=== PATIENT | male | born 1935 | race Hispanic/Latino ===

== ENCOUNTER 2017-12-25 07:36 | Inpatient (IN) | payer MEDICARE ==
[2017-12-25 08:16] LABS: BASO % 0.4 % (0.0-2.0); EOS # 0.1 K/uL (0.0-0.7); EOS % 1.4 % (0.0-4.0); HEMOGLOBIN 14.6 g/dL (12.0-18.0); LYMPH % 15.7 % (20.0-40.0); MEAN CELL VOLUME 99.3 fl (80.0-94.0); MEAN CORPUSCULAR HEMOGLOBIN 34.4 pg (27.0-31.0); MEAN CORPUSCULAR HGB CONC 34.7 g/dL (33.0-37.0); MEAN PLATELET VOLUME 7.3 fl (7.2-11.7); MONO # 0.4 K/uL (0.0-0.8); MONO % 7.4 % (0.0-10.0); NEUT # 4.5 K/uL (1.8-7.0); NEUT % 75.1 % (50.0-75.0); NRBC % 0.1 % (0.0-0.0); RBC 4.25 Mil/uL (4.40-5.90); RED CELL DISTRIBUTION WIDTH 14.4 % (11.5-14.5); WHITE BLOOD COUNT 6.1 K/uL (4.8-10.8)
--- NOTE | 2017-12-25 08:16 | ED PDOC ---
HPI: SOB/CHF/COPD Time Seen by Provider: 12/25/17 07:44 Chief Complaint (Nursing): Shortness Of Breath Chief Complaint (Provider): shortness of breath History Per: Patient History/Exam Limitations: no limitations Onset/Duration Of Symptoms: Days (x5), Worse Since (onset) Current Symptoms Are (Timing): Still Present Associated Symptoms: Ankle/Leg Swelling (b/l). denies: Chest Pain, Productive Cough Additional Complaint(s): Navi Welch is an 82 year old male, with a past medical history A-Fib and right pleural effusion, who presents to the emergency department complaining of a worsening shortness of breath onset for x5 days. Patient also reports bilateral leg swelling onset for x1 year. He denies any fever, chills, chest pain, cough, nausea, vomit or diarrhea. No further medical complaints. PMD: None provided. Past Medical History Reviewed: Historical Data, Nursing Documentation, Vital Signs Vital Signs: Last Vital Signs Temp 97.7 F 12/27/17 16:00 Pulse 112 H 12/27/17 16:00 Resp 18 12/27/17 16:00 BP 90/58 L 12/27/17 16:00 Pulse Ox 97 12/27/17 16:00 - Medical History PMH: Atrial Fibrillation, Benign Prostatic Hyperplasia, CHF Other PMH: right pleural effusion, glaucoma - Surgical History Surgical History: No Surg Hx - Family History Family History: States: No Known Family Hx - Social History Current smoker - smoking cessation education provided: No Alcohol: Social Drugs: Denies - Home Medications Home Medications: Ambulatory Orders Medication Instructions Recorded Apixaban [Eliquis] 1 tab PO BID 12/25/17 Finasteride [Proscar] 1 tab PO DAILY 12/25/17 Furosemide [Lasix] 1 tab PO BID 12/25/17 Metoprolol Succinate [Toprol Xl] 1 tab PO DAILY 12/25/17 Timolol [Betimol] 1 drop BOTHEYES DAILY 12/25/17 Tamsulosin [Flomax] 0.8 mg PO PCS #60 cap 12/27/17 - Allergies Allergies/Adverse Reactions: Allergies Allergy/AdvReac Type Severity Reaction Status Date / Time No Known Allergies Allergy Verified 12/25/17 07:49 Review of Systems ROS Statement: Except As Marked, All Systems Reviewed And Found Negative Constitutional: Negative for: Fever, Chills Cardiovascular: Negative for: Chest Pain Respiratory: Positive for: Shortness of Breath. Negative for: Cough Musculoskeletal: Positive for: Other (b/l leg swelling) Physical Exam - Reviewed Nursing Documentation Reviewed: Yes Vital Signs Reviewed: Yes - Physical Exam Appears: Positive for: Non-toxic, No Acute Distress Head Exam: Positive for: ATRAUMATIC, NORMOCEPHALIC Skin: Positive for: Normal Color, Warm, Dry. Negative for: Rash Eye Exam: Positive for: Normal appearance Neck: Positive for: Painless ROM Cardiovascular/Chest: Positive for: Irregularly Irregular Respiratory: Positive for: Decreased Breath Sounds (b/l lower) Gastrointestinal/Abdominal: Positive for: Normal Exam, Soft. Negative for: Tenderness Back: Positive for: Normal Inspection. Negative for: L CVA Tenderness, R CVA Tenderness, Vertebral Tenderness Extremity: Positive for: Normal ROM (upper and lower extremities), Swelling (3+ pitting edema to left lower extremity. 2+ pitting edema to right lower extremity ). Negative for: Deformity Neurologic/Psych: Positive for: Alert, Oriented. Negative for: Motor/Sensory Deficits - Laboratory Results Result Diagrams: 12/27/17 05:00 12/27/17 05:00 - ECG Interpretation Of ECG: A fib @ 93, IRBBB, no ST-T changes. O2 Sat by Pulse Oximetry: 98 (RA) Pulse Ox Interpretation: Normal - Physician Consult Information Time Consulting Physican Contacted: 09:45 Physician Contacted: Ramo Bowman Medical Decision Making Medical Decision Making: Initial Impression: A-fib and pleural effusion Initial Plan: --EKG --PROBNP --CMP --Troponin I --CBC w/ differential --PTT --PT --Chest two views (PA/LAT) [RAD] --Urinalysis --Duplex Lower extrm vein bilat [US] --Reevaluation 08:53 CXR FINDINGS: LUNGS: Biapical pleural thickening again evident. Chronic airspace disease not excluded the right base. PLEURA: Chronic right pleural effusion is reiterated unchanged compared prior chest radiograph 11/25/2017 dating back at least to prior chest radiographs 2017. CARDIOVASCULAR: Stable cardiac silhouette. No pulmonary vascular congestion. OSSEOUS STRUCTURES: S shaped scoliotic deformity reiterated VISUALIZED UPPER ABDOMEN: Normal. OTHER FINDINGS: None. IMPRESSION: Chronic right pleural effusion unchanged with likely underlying chronic airspace disease noted at the right base as well. No left-sided infiltrate or pleural effusion. Biapical pleural thickening reiterated. Accession No. : [id number] Patient Name / ID : MICHAEL Pendleton / [id number] Exam Date : 12/25/2017 09:41:05 ( Approved ) Study Comment : Sex / Age : M / 82Y Creator : Salvatore Lopez MD Dictator : Salvatore Lopez MD Detective Automobile Section : Motorcycle Mechanic Apprentice : Salvatore Lopez MD Approver2 : Report Date : 12/25/2017 12:05:59 My Comment : PROCEDURE: Bilateral lower extremity venous duplex Doppler. HISTORY: BLE swelling COMPARISON: None available. TECHNIQUE: Bilateral common femoral, superficial femoral, popliteal and posterior tibial veins were evaluated. Flow was assessed with color Doppler, compressibility, assessment of phasic flow and augmentation response. FINDINGS: COMMON FEMORAL VEIN: Right CFV: Unremarkable. Left CFV: Unremarkable. SUPERFICIAL FEMORAL VEIN: Right SFV: Unremarkable. Left SFV: Unremarkable. POPLITEAL VEIN: Right Popliteal: Unremarkable. Left Popliteal: Unremarkable. POSTERIOR TIBIAL VEIN: Right PTV: Unremarkable. Left PTV: Unremarkable. OTHER FINDINGS: Bilateral lower extremity edema, by history a chronic finding IMPRESSION: No evidence of deep venous thrombosis. JUSTIN (BROTHER): [phone] Scribe Attestation: Documented by Silvano Matthews, acting as a scribe for Maite Suazo MD Provider Scribe Attestation: All medical record entries made by the Scribe were at my direction and personally dictated by me. I have reviewed the chart and agree that the record accurately reflects my personal performance of the history, physical exam, medical decision making, and the department course for this patient. I have also personally directed, reviewed, and agree with the discharge instructions and disposition. Disposition - Clinical Impression Clinical Impression: Atrial fibrillation, Pleural effusion - Disposition Disposition Time: 09:48 Condition: STABLE - Pt Status Changed To: Hospital Disposition Of: Inpatient - Admit Certification Admit to Inpatient:: After my assessment, the patient will require hospitalization for at least two midnights. This is because of the severity of symptoms shown, intensity of services needed, and/or the medical risk in this patient being treated as an outpatient. - POA Present On Arrival: None
[2017-12-25 08:33] LABS: INR 1.4 (0.9-1.2); PARTIAL THROMBOPLASTIN TIME 36.6 Seconds (25.6-37.1)
[2017-12-25 08:36] LABS: ALB/GLOB RATIO 0.8 (1.0-2.1); ALT/SGPT 29 U/L (21-72); AST/SGOT 28 U/L (17-59); BLOOD UREA NITROGEN 37 mg/dl (9-20); CALCIUM 9.1 mg/dL (8.4-10.2); GFR AFRICAN-AMERICAN > 60; GFR NON-AFRICAN AMERICAN > 60
[2017-12-25 08:46] LABS: B-TYPE NATRIURETIC PEPTIDE 2010 pg/ml (0-900)
--- NOTE | 2017-12-25 08:54 | RAD ---
HISTORY: SOB COMPARISON: Chest radiographs 11/26/2017. TECHNIQUE: Chest PA and lateral FINDINGS: LUNGS: Biapical pleural thickening again evident. Chronic airspace disease not excluded the right base. PLEURA: Chronic right pleural effusion is reiterated unchanged compared prior chest radiograph 11/25/2017 dating back at least to prior chest radiographs 08/28/2017. CARDIOVASCULAR: Stable cardiac silhouette. No pulmonary vascular congestion. OSSEOUS STRUCTURES: S shaped scoliotic deformity reiterated VISUALIZED UPPER ABDOMEN: Normal. OTHER FINDINGS: None. IMPRESSION: Chronic right pleural effusion unchanged with likely underlying chronic airspace disease noted at the right base as well. No left-sided infiltrate or pleural effusion. Biapical pleural thickening reiterated. .
--- NOTE | 2017-12-25 09:24 | CP.PCM.CON ---
History of Present Illness - History of Present Illness History of Present Illness: This 82-year-old male is well known to me from the outpatient setting. He presented to the hospital with increasing shortness of breath because of a right pleural effusion which has not responded to diuretic therapy. He is known to have developed atrial fibrillation a few months back but has been reluctant to have any specific workup done. He has had rate control using metoprolol and diuretic as mentioned above. He has developed bilateral dependent edema which extends from the ankle to mid calf. Nail beds are dusky but there is no central cyanosis. He denies any chest pain. He has no other known cardiac illness. He has been compliant with taking all his medications and maintaining a low sodium diet. He has had low normal blood pressure because of the diuretic therapy. 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 No history of pneumonia, asthma, coronary artery disease, hypertension, diabetes, peptic ulcer disease, chronic renal disease, liver disease or bleeding disorder. Past surgical history: Appendectomy 1946, removal of testicular cyst 1977. Family history: Cerebrovascular accident. Social history: Never smoker. Social alcohol only. Denies illicit drug use. Past Patient History - Past Social History Smoking Status: Never Smoked Chewing Tobacco Use: No Cigar Use: No Alcohol: Social Drugs: Denies Home Situation {Lives}: Alone - CARDIAC Hx Atrial Fibrillation: Yes Hx Congestive Heart Failure: Yes - PULMONARY Other/Comment: pleural effusion. - NEUROLOGICAL Hx Neurological Disorder: No - HEENT Hx Glaucoma: Yes - ENDOCRINE/METABOLIC Hx Endocrine Disorders: No - HEMATOLOGICAL/ONCOLOGICAL Hx Blood Disorders: No Hx Human Immunodeficiency Virus (HIV): No - INTEGUMENTARY Hx Basil Cell: Yes - MUSCULOSKELETAL/RHEUMATOLOGICAL Hx Musculoskeletal Disorders: No - GASTROINTESTINAL Hx Gastrointestinal Disorders: No - GENITOURINARY/GYNECOLOGICAL Hx Prostate Problems: Yes (BPH with LUTS) - PSYCHIATRIC Hx Psychophysiologic Disorder: No Hx Substance Use: No - SURGICAL HISTORY Hx Appendectomy: Yes Other/Comment: removal of testicular cyst. - ANESTHESIA Hx Anesthesia: No Meds Allergies/Adverse Reactions: Allergies Allergy/AdvReac Type Severity Reaction Status Date / Time No Known Allergies Allergy Verified 12/25/17 07:49 Physical Exam - Additional Findings Additional findings: Thin, well developed male in no acute distress. ++ dependant edema of both lower extremities from the feet to mid calf. Dusky nailbeds, no clubbing, no calf tenderness, no palpable venous cords. No palpable abnormal lymphadenopathy. Conjunctivae pink w/o scleral icterus, MANUEL, EOMI. Pharynx pink with moist membranes, no exudate. Nares patent bilaterally w/o bleeding or exudate. Neck is supple and trachea midline. No visible JVD, no carotid bruit. + dullness on percussion lower half of right hemithorax. Breath sounds are absent in the right base posteriorly and laterally. Breath sounds are present in the remaining lung fair w/o wheezes or bronchial breathing. Heart sounds well heard, irreg/irreg rhythm, no abn precordial motion, no murmur. Abdomen is soft and non-tender with normal bowel sounds, no palpable HSM. No CVA tenderness. Results - Vital Signs Recent Vital Signs: Last Vital Signs Temp 97.5 F L 12/25/17 07:41 Pulse 99 H 12/25/17 07:41 Resp 19 12/25/17 08:15 BP 92/59 L 12/25/17 08:05 Pulse Ox 98 12/25/17 08:20 - Labs Result Diagrams: 12/26/17 04:20 12/26/17 04:20 Labs: Laboratory Results - last 24 hr 12/25/17 12/25/17 12/25/17 08:06 08:06 08:06 WBC 6.1 RBC 4.25 L Hgb 14.6 Hct 42.1 MCV 99.3 H MCH 34.4 H MCHC 34.7 RDW 14.4 Plt Count 199 MPV 7.3 Neut % (Auto) 75.1 H Lymph % (Auto) 15.7 L [place] % (Auto) 7.4 Eos % (Auto) 1.4 Baso % (Auto) 0.4 Neut # (Auto) 4.5 Lymph # (Auto) 1.0 [place] # (Auto) 0.4 Eos # (Auto) 0.1 Baso # (Auto) 0.0 PT 16.0 H INR 1.4 H APTT 36.6 Sodium 141 Potassium 3.7 Chloride 96 L Carbon Dioxide 31 H Anion Gap 18 BUN 37 H Creatinine 1.1 Est GFR ( Amer) > 60 Est GFR (Non-Af Amer) > 60 Random Glucose 125 H Calcium 9.1 Total Bilirubin 1.5 H AST 28 ALT 29 Alkaline Phosphatase 179 H Troponin I < 0.0120 NT-Pro-B Natriuret Pep 2010 H Total Protein 8.8 H Albumin 4.0 Globulin 4.8 H Albumin/Globulin Ratio 0.8 L Assessment & Plan (1) Atrial fibrillation Status: Acute Priority: High (2) Pleural effusion due to congestive heart failure Status: Acute Priority: High (3) Acute on chronic systolic congestive heart failure Status: Acute Priority: High - Assessment and Plan (Free Text) Plan: Parenteral diuretics, thoracentesis, cardiology evaluation. Hold anticoags until after thoracentesis. Fluid testing requests entered in to EMR. Continue remainder of home meds. - Date & Time Date: 12/25/17 Time: 09:24
[2017-12-25 10:48] LABS: URINE BACTERIA RARE (<OCC); URINE BILIRUBIN NEGATIVE (NEGATIVE); URINE BLOOD NEGATIVE (NEGATIVE); URINE CLARITY CLEAR (Clear); URINE COLOR YELLOW (YELLOW); URINE GLUCOSE (UA) NEG (Normal); URINE LEUKOCYTE ESTERASE NEG Leu/uL (Negative); URINE PROTEIN NEGATIVE (NEGATIVE); URINE UROBILINOGEN 0.2-1.0 mg/dL (0.2-1.0)
--- NOTE | 2017-12-25 11:51 | CP.PCM.HP ---
History of Present Illness - History of Present Illness History of Present Illness: CC: Shortness of breath This is an 82 year old male with a past medical history of chronic atrial fibrillation anticoagulated on Eliquis, history of chronic right sided pleural effusion, who presented to the ED complaining of worsening shortness of breath and dyspnea on exertion for the last 5 days. The patient also states that he has had worsening leg edema over the last few weeks, although the edema has been present for a year. The patient denies any other symptoms. In the ED, the patient was found to have acute fluid overload, presumably due to possible heart failure. He is saturating well on room air at this point. He has never been diagnosed with heart failure before. CXR shows right sided pleural effusion. The patient is to be admitted for further workup and management of his hypervolemia. Patient denies chest pain, fevers, chills, nausea, vomiting, diarrhea, headache. All of the patient's and/or family's questions were answered at the bedside. Present on Admission - Present on Admission Any Indicators Present on Admission: No History of DVT/PE: No History of Uncontrolled Diabetes: No Review of Systems - Review of Systems Review of Systems: A 12 point review of systems was conducted and found to be negative other than what was mentioned in the HPI Past Patient History - Infectious Disease Hx of Infectious Diseases: None - Past Medical History & Family History Past Medical History?: Yes Past Family History: Reviewed and not pertinent - Past Social History Smoking Status: Current Some Days Smoker Alcohol: Social Drugs: Denies - CARDIAC Hx Atrial Fibrillation: Yes Hx Congestive Heart Failure: Yes - HEENT Hx HEENT Problems: Yes Hx Glaucoma: Yes - GENITOURINARY/GYNECOLOGICAL Hx Genitourinary Disorders: Yes - PSYCHIATRIC Hx Substance Use: No - SURGICAL HISTORY Hx Surgeries: No - ANESTHESIA Hx Anesthesia: No Meds Allergies/Adverse Reactions: Allergies Allergy/AdvReac Type Severity Reaction Status Date / Time No Known Allergies Allergy Verified 12/25/17 07:49 Physical Exam - Additional Findings Additional findings: Physical exam: Constitutional- cooperative, awake, alert Head- NCAT, PERRL Eye- PERRL, EOMI ENT- normal exam, MMM. Neck- normal inspection, supple, no JVD Respiratory- CTAB, no wheezes rales rhonchi Cardiovascular-irregular rate and rhythm, +S1, +S2 no MRG GI/Abdominal- normal bowel sounds, soft, no mass, no hsm Skin- warm, dry Extremities Exam- +3 pitting edema in left leg, + 2 pitting edema right legnormal capillary refill, normal inspection Neurological Exam- alert, awake, oriented Psych- normal mood, normal affect Results - Vital Signs Recent Vital Signs: Last Vital Signs Temp 97.5 F L 12/25/17 07:41 Pulse 99 H 12/25/17 07:41 Resp 19 12/25/17 08:15 BP 92/59 L 12/25/17 08:05 Pulse Ox 98 12/25/17 10:24 - Labs Result Diagrams: 12/25/17 08:06 12/25/17 08:06 Labs: Laboratory Results - last 24 hr 12/25/17 12/25/17 12/25/17 08:06 08:06 08:06 WBC 6.1 RBC 4.25 L Hgb 14.6 Hct 42.1 MCV 99.3 H MCH 34.4 H MCHC 34.7 RDW 14.4 Plt Count 199 MPV 7.3 Neut % (Auto) 75.1 H Lymph % (Auto) 15.7 L [place] % (Auto) 7.4 Eos % (Auto) 1.4 Baso % (Auto) 0.4 Neut # (Auto) 4.5 Lymph # (Auto) 1.0 [place] # (Auto) 0.4 Eos # (Auto) 0.1 Baso # (Auto) 0.0 PT 16.0 H INR 1.4 H APTT 36.6 Sodium 141 Potassium 3.7 Chloride 96 L Carbon Dioxide 31 H Anion Gap 18 BUN 37 H Creatinine 1.1 Est GFR ( Amer) > 60 Est GFR (Non-Af Amer) > 60 Random Glucose 125 H Calcium 9.1 Total Bilirubin 1.5 H AST 28 ALT 29 Alkaline Phosphatase 179 H Troponin I < 0.0120 NT-Pro-B Natriuret Pep 2010 H Total Protein 8.8 H Albumin 4.0 Globulin 4.8 H Albumin/Globulin Ratio 0.8 L Assessment & Plan - Assessment and Plan (Free Text) Plan: ASSESSMENT/PLAN 82 year old male male with a past medical history of chronic atrial fibrillation anticoagulated on Eliquis, history of chronic right sided pleural effusion, BPH, glaucoma, who is being admitted for hypervolemia presumably due to heart failure 1) Hypervolemia - Admit to telemetry - Consultation with Dr. David - Alvin IV - Check echocardiogram for assessment of ejection fraction - Monitor vitals - BNP 2009 - EKG shows atrial fibrillation, normal ventricular rate, right bundle branch block - repeat labs in AM 2) Right sided pleural effusion, chronic - Consult IR for right sided thoracentesis - Check pleural fluid labs, cytology 3) Chronic atrial fibrillation, controlled - Continue Eliquis - Continue Metoprolol 25 mg po daily 4) BPH - Continue Proscar 5) Glaucoma Continue Timolol 1 drop OU daily 6) DVT prophylaxis - Eliquis
--- NOTE | 2017-12-25 12:07 | US ---
PROCEDURE: Bilateral lower extremity venous duplex Doppler. HISTORY: BLE swelling COMPARISON: None available. TECHNIQUE: Bilateral common femoral, superficial femoral, popliteal and posterior tibial veins were evaluated. Flow was assessed with color Doppler, compressibility, assessment of phasic flow and augmentation response. FINDINGS: COMMON FEMORAL VEIN: Right CFV: Unremarkable. Left CFV: Unremarkable. SUPERFICIAL FEMORAL VEIN: Right SFV: Unremarkable. Left SFV: Unremarkable. POPLITEAL VEIN: Right Popliteal: Unremarkable. Left Popliteal: Unremarkable. POSTERIOR TIBIAL VEIN: Right PTV: Unremarkable. Left PTV: Unremarkable. OTHER FINDINGS: Bilateral lower extremity edema, by history a chronic finding IMPRESSION: No evidence of deep venous thrombosis.
--- NOTE | 2017-12-25 12:45 | CP.PCM.CON ---
History of Present Illness - History of Present Illness History of Present Illness: CARDIOLOGY 82 y/o w/m admitted with CHF (I50.23) and chronic Right sided Pleural Effusion Pt came in c/o SOB / MARIE that he claims he always has BUT has gotten worse over the past week. also, has noted pedal edema He as chronic Atrial fibrillation / since his teens PMH: COPD Pleural effusion AF !50.23 BPH BNP: 2009 EKG: Chronic Atrial Fibrillation Review of Systems - Review of Systems Systems not reviewed;Unavailable: Respiratory Distress - Cardiovascular Cardiovascular: Dyspnea on Exertion, Edema, Irregular Heart Rhythm - Respiratory Respiratory: Dyspnea, Dyspnea on Exertion Past Patient History - Infectious Disease Hx of Infectious Diseases: None - Past Medical History & Family History Past Medical History?: Yes Past Family History: Reviewed and not pertinent - Past Social History Smoking Status: Current Some Days Smoker Alcohol: Social Drugs: Denies - CARDIAC Hx Atrial Fibrillation: Yes Hx Congestive Heart Failure: Yes - PULMONARY Other/Comment: pleural effusion. - NEUROLOGICAL Hx Neurological Disorder: No - HEENT Hx HEENT Problems: Yes Hx Glaucoma: Yes - RENAL Hx Chronic Kidney Disease: No - ENDOCRINE/METABOLIC Hx Endocrine Disorders: No - HEMATOLOGICAL/ONCOLOGICAL Hx Blood Disorders: No Hx Human Immunodeficiency Virus (HIV): No - INTEGUMENTARY Hx Basil Cell: Yes - MUSCULOSKELETAL/RHEUMATOLOGICAL Hx Musculoskeletal Disorders: No - GASTROINTESTINAL Hx Gastrointestinal Disorders: No - GENITOURINARY/GYNECOLOGICAL Hx Genitourinary Disorders: Yes - PSYCHIATRIC Hx Substance Use: No - SURGICAL HISTORY Hx Surgeries: No - ANESTHESIA Hx Anesthesia: No Meds Allergies/Adverse Reactions: Allergies Allergy/AdvReac Type Severity Reaction Status Date / Time No Known Allergies Allergy Verified 12/25/17 07:49 - Medications Medications: Current Medications Acetaminophen (Tylenol 325mg Tab) 650 mg PO Q6 PRN PRN Reason: Pain, Mild (1-3) Apixaban (Eliquis) 2.5 mg PO BID SHAI PRN Reason: Protocol Finasteride (Proscar) 5 mg PO DAILY SHAI Furosemide (Lasix) 40 mg IVP DAILY SHAI Metoprolol Succinate (Toprol Xl) 25 mg PO DAILY SHAI Timolol Maleate (Timoptic 0.5% Ophth Soln) 1 drop OU DAILY SHAI Physical Exam - Constitutional Appears: Well - Head Exam Head Exam: ATRAUMATIC - Eye Exam Eye Exam: Normal appearance - ENT Exam ENT Exam: Normal Exam - Neck Exam Neck exam: Positive for: Normal Inspection - Respiratory Exam Respiratory Exam: NORMAL BREATHING PATTERN - Cardiovascular Exam Cardiovascular Exam: Irregular Rhythm Results - Vital Signs Recent Vital Signs: Last Vital Signs Temp 98.0 F 12/25/17 11:08 Pulse 7 L 12/25/17 11:26 Resp 18 12/25/17 11:26 BP 99/64 L 12/25/17 11:08 Pulse Ox 98 12/25/17 11:26 - Labs Result Diagrams: 12/25/17 08:06 12/25/17 08:06 Labs: Laboratory Results - last 24 hr 12/25/17 12/25/17 12/25/17 08:06 08:06 08:06 WBC 6.1 RBC 4.25 L Hgb 14.6 Hct 42.1 MCV 99.3 H MCH 34.4 H MCHC 34.7 RDW 14.4 Plt Count 199 MPV 7.3 Neut % (Auto) 75.1 H Lymph % (Auto) 15.7 L [place] % (Auto) 7.4 Eos % (Auto) 1.4 Baso % (Auto) 0.4 Neut # (Auto) 4.5 Lymph # (Auto) 1.0 [place] # (Auto) 0.4 Eos # (Auto) 0.1 Baso # (Auto) 0.0 PT 16.0 H INR 1.4 H APTT 36.6 Sodium 141 Potassium 3.7 Chloride 96 L Carbon Dioxide 31 H Anion Gap 18 BUN 37 H Creatinine 1.1 Est GFR ( Amer) > 60 Est GFR (Non-Af Amer) > 60 Random Glucose 125 H Calcium 9.1 Total Bilirubin 1.5 H AST 28 ALT 29 Alkaline Phosphatase 179 H Troponin I < 0.0120 NT-Pro-B Natriuret Pep 2010 H Total Protein 8.8 H Albumin 4.0 Globulin 4.8 H Albumin/Globulin Ratio 0.8 L Urine Color Urine Clarity Urine pH Ur Specific [place] Urine Protein Urine Glucose (UA) Urine Ketones Urine Blood Urine Nitrate Urine Bilirubin Urine Urobilinogen Ur Leukocyte Esterase Urine RBC (Auto) Urine Microscopic WBC Urine Bacteria 12/25/17 10:30 WBC RBC Hgb Hct MCV MCH MCHC RDW Plt Count MPV Neut % (Auto) Lymph % (Auto) [place] % (Auto) Eos % (Auto) Baso % (Auto) Neut # (Auto) Lymph # (Auto) [place] # (Auto) Eos # (Auto) Baso # (Auto) PT INR APTT Sodium Potassium Chloride Carbon Dioxide Anion Gap BUN Creatinine Est GFR ( Amer) Est GFR (Non-Af Amer) Random Glucose Calcium Total Bilirubin AST ALT Alkaline Phosphatase Troponin I NT-Pro-B Natriuret Pep Total Protein Albumin Globulin Albumin/Globulin Ratio Urine Color Yellow Urine Clarity Clear Urine pH 7.0 Ur Specific [place] 1.011 Urine Protein Negative Urine Glucose (UA) Neg Urine Ketones Negative Urine Blood Negative Urine Nitrate Negative Urine Bilirubin Negative Urine Urobilinogen 0.2-1.0 Ur Leukocyte Esterase Neg Urine RBC (Auto) 2 Urine Microscopic WBC 1 Urine Bacteria Rare Assessment & Plan (1) Atrial fibrillation Status: Acute Priority: High (2) Pleural effusion due to congestive heart failure Assessment and Plan: Lasix 40mg IV daily Echocardiogram Status: Acute Priority: High (3) Acute on chronic systolic congestive heart failure Status: Acute
[2017-12-25] MEDS: Latanoprost 0.005% Opht SOUTION OU SCH (21:17)
[2017-12-26 05:27] LABS: HEMOGLOBIN 12.9 g/dL (12.0-18.0); MEAN CELL VOLUME 98.4 fl (80.0-94.0); MEAN CORPUSCULAR HEMOGLOBIN 33.5 pg (27.0-31.0); RBC 3.86 Mil/uL (4.40-5.90); RED CELL DISTRIBUTION WIDTH 14.2 % (11.5-14.5); WHITE BLOOD COUNT 5.5 K/uL (4.8-10.8)
[2017-12-26 05:38] LABS: BLOOD UREA NITROGEN 34 mg/dl (9-20); CALCIUM 8.5 mg/dL (8.4-10.2); GFR AFRICAN-AMERICAN > 60; GFR NON-AFRICAN AMERICAN > 60
[2017-12-26] MEDS: Metoprolol Succinate 25 mg XL Tab PO SCH (08:37)
--- NOTE | 2017-12-26 08:49 | CP.PCM.PN ---
Subjective - Date & Time of Evaluation Date of Evaluation: 12/26/17 Time of Evaluation: 08:49 - Subjective Subjective: Seen on morning rounds and telemetry. The patient is seated upright in bed and claims he feels much improved/ comfortable. Weight shows a decrease of approximately 4-5 pounds in 1 day. Blood pressure remains low normal. He continues to be afebrile. Heart rate is well controlled and the rhythm remains irregularly irregular. Dependent edema has decreased dramatically in the lower extremities. No cyanosis. There continues to be dullness in the lower right half of the hemithorax. Sounds remain markedly diminished/absent in the right lower lobe on exam. No audible wheezing. Few scattered dry the medium rales are heard in the left base. Echocardiogram is pending. Thoracentesis is planned for this morning. Eliquis remains on hold for the present time. Objective - Vital Signs/Intake and Output Vital Signs (last 24 hours): Temp Pulse Resp BP Pulse Ox 97.8 F 95 H 18 106/74 95 12/26/17 07:51 12/26/17 08:37 12/26/17 07:51 12/26/17 08:37 12/26/17 07:51 Intake and Output: 12/25/17 12/26/17 23:59 11:59 Intake Total 1380 Output Total 200 Balance 1180 - Medications Medications: Current Medications Acetaminophen (Tylenol 325mg Tab) 650 mg PO Q6 PRN PRN Reason: Pain, Mild (1-3) Apixaban (Eliquis) 2.5 mg PO BID [facility] PRN Reason: Protocol Finasteride (Proscar) 5 mg PO DAILY@1830 [facility] Last Admin: 12/25/17 18:16 Dose: 5 mg Furosemide (Lasix) 40 mg IVP DAILY [facility] Last Admin: 12/26/17 08:35 Dose: 40 mg Latanoprost (Xalatan Opht) 1 drop OU HS [facility] Last Admin: 12/25/17 21:17 Dose: 1 drop Metoprolol Succinate (Toprol Xl) 25 mg PO DAILY [facility] Last Admin: 12/26/17 08:37 Dose: 25 mg Tamsulosin HCl (Flomax) 0.8 mg PO PCS [facility] Last Admin: 12/25/17 19:50 Dose: 0.4 mg Timolol Maleate (Timoptic 0.5% Ophth Soln) 1 drop OU DAILY [facility] Last Admin: 12/26/17 08:35 Dose: 1 drop - Labs Labs: 12/26/17 04:20 12/26/17 04:20 PT 16.0 Seconds (9.8-13.1) H 12/25/17 08:06 INR 1.4 (0.9-1.2) H 12/25/17 08:06 APTT 36.6 Seconds (25.6-37.1) 12/25/17 08:06 Assessment and Plan (1) Atrial fibrillation Status: Acute (2) Pleural effusion due to congestive heart failure Status: Acute (3) Acute on chronic systolic congestive heart failure Status: Acute
--- NOTE | 2017-12-26 10:06 | CP.PCM.PN ---
Subjective - Date & Time of Evaluation Date of Evaluation: 12/26/17 Time of Evaluation: 10:00 - Subjective Subjective: Pt's SOB better today, still with some SOB on exertion pedal edema also better Plan for Thoracentesis today denies CP no abd pain no fever Objective - Vital Signs/Intake and Output Vital Signs (last 24 hours): Temp Pulse Resp BP Pulse Ox 97.8 F 95 H 18 106/74 95 12/26/17 07:51 12/26/17 08:37 12/26/17 07:51 12/26/17 08:37 12/26/17 07:51 - Medications Medications: Current Medications Acetaminophen (Tylenol 325mg Tab) 650 mg PO Q6 PRN PRN Reason: Pain, Mild (1-3) Apixaban (Eliquis) 2.5 mg PO BID [facility] PRN Reason: Protocol Finasteride (Proscar) 5 mg PO DAILY@1830 [facility] Last Admin: 12/25/17 18:16 Dose: 5 mg Furosemide (Lasix) 40 mg IVP DAILY [facility] Last Admin: 12/26/17 08:35 Dose: 40 mg Latanoprost (Xalatan Opht) 1 drop OU HS [facility] Last Admin: 12/25/17 21:17 Dose: 1 drop Metoprolol Succinate (Toprol Xl) 25 mg PO DAILY [facility] Last Admin: 12/26/17 08:37 Dose: 25 mg Tamsulosin HCl (Flomax) 0.8 mg PO PCS [facility] Last Admin: 12/25/17 19:50 Dose: 0.4 mg Timolol Maleate (Timoptic 0.5% Ophth Soln) 1 drop OU DAILY [facility] Last Admin: 12/26/17 08:35 Dose: 1 drop - Labs Labs: 12/26/17 04:20 12/26/17 04:20 PT 16.0 Seconds (9.8-13.1) H 12/25/17 08:06 INR 1.4 (0.9-1.2) H 12/25/17 08:06 APTT 36.6 Seconds (25.6-37.1) 12/25/17 08:06 - Constitutional Appears: No Acute Distress - Head Exam Head Exam: ATRAUMATIC, NORMAL INSPECTION, NORMOCEPHALIC - Eye Exam Eye Exam: EOMI, Normal appearance Pupil Exam: NORMAL ACCOMODATION - ENT Exam ENT Exam: Mucous Membranes Moist, Normal External Ear Exam - Neck Exam Neck Exam: Full ROM. absent: Meningismus - Respiratory Exam Respiratory Exam: Rales. absent: Respiratory Distress - Cardiovascular Exam Cardiovascular Exam: Irregular Rhythm, +S1, +S2 - GI/Abdominal Exam GI & Abdominal Exam: Soft, Normal Bowel Sounds. absent: Tenderness - Extremities Exam Extremities Exam: Normal Capillary Refill, Pedal Edema. absent: Calf Tenderness - Back Exam Back Exam: Full ROM. absent: CVA tenderness (L), CVA tenderness (R) - Neurological Exam Neurological Exam: Alert, Awake, CN II-XII Intact, Oriented x3 Neuro motor strength exam: Left Upper Extremity: 5, Right Upper Extremity: 5, Left Lower Extremity: 5, Right Lower Extremity: 5 - Psychiatric Exam Psychiatric exam: Normal Affect, Normal Mood - Skin Skin Exam: Dry, Normal Color, Warm Assessment and Plan - Assessment and Plan (Free Text) Assessment: 82 year old male with a past medical history of chronic atrial fibrillation anticoagulated on Eliquis, history of CHF, came in because of SOB and leg edema. Found to be in CHF exacerbation with elevated Pro-BNP and moderate Right pleural effusion. 1) Acute on Chronic CHF exacerbation, Systolic and Diastolic Dysfunction, EF 20 -25% - cont IV Lasix and Toprol XL - cardio consulted: Dr David - BNP 2009 - EKG shows atrial fibrillation, normal ventricular rate, right bundle branch block - ECHO shows : severe LV dysfunction, EF 20-25%, Global Hypokinesia, Severe TR 2) Right sided pleural effusion - Consulted IR for right sided thoracentesis - Check pleural fluid labs, cytology 3) Chronic atrial fibrillation, rate controlled - Hold Eliquis a spt is sched for Thoracentesis - Continue Metoprolol 25 mg po daily 4) BPH - Continue Proscar 5) Glaucoma Continue Timolol 1 drop OU daily 6) DVT prophylaxis - Eliquis
--- NOTE | 2017-12-26 10:43 | CARD ---
APPROVED REPORT EXAM: Two-dimensional and M-mode echocardiogram with Doppler and color Doppler. Other Information Quality : ExcellentRhythm : NSR INDICATION Congestive Heart Failure 2D DIMENSIONS IVSd0.82 (0.7-1.1cm)LVDd3.81 (3.9-5.9cm) LVOT Diameter2.01 (1.8-2.4cm)PWd1.21 (0.7-1.1cm) IVSs0.95 (0.8-1.2cm)LVDs3.40 (2.5-4.0cm) FS (%) 10.9 %PWs1.11 (0.8-1.2cm) M-Mode DIMENSIONS Left Atrium (MM)2.68 (2.5-4.0cm)IVSd0.72 (0.7-1.1cm) Aortic Root2.65 (2.2-3.7cm)LVDd4.97 (4.0-5.6cm) Aortic Cusp Exc.1.70 (1.5-2.0cm)PWd0.76 (0.7-1.1cm) IVSs0.69 cmFS (%) 13 % LVDs4.33 (2.0-3.8cm)PWs1.03 cm Mitral Valve E/A ratio0.0 TDI E/Lateral E'0.0E/Medial E'0.0 Tricuspid Valve TR Peak [id number] Peak Gr.24mmHg [id number] LEFT VENTRICLE The left ventricle is normal size. There is normal left ventricular wall thickness. Left ventricle systolic function is severely impaired. The Ejection Fraction is 20-25%. There is global hypokinesis Transmitral Doppler flow pattern is Grade IV-fixed restrictive diastolic dysfunction. No left ventricle thrombus noted on this study. There is no ventricular septal defect visualized. There is no left ventricular aneurysm. There is no mass noted in the left ventricle. RIGHT VENTRICLE The right ventricle is moderately dilated. There is normal right ventricular wall thickness. Systolic function is moderately reduced. ATRIA The left atrium size is normal. The right atrium size is normal. The interatrial septum is intact with no evidence for an atrial septal defect. AORTIC VALVE The aortic valve is normal in structure. No aortic regurgitation is present. There is no aortic valvular stenosis. There is no aortic valvular vegetation. MITRAL VALVE The mitral valve is normal in structure. There is no evidence of mitral valve prolapse. There is no mitral valve stenosis. Mitral regurgitation is mild. TRICUSPID VALVE The tricuspid valve is normal in structure. There is severe tricuspid regurgitation. Right ventricular systolic pressure is estimated at 30-40 mmHg. There is no tricuspid valve prolapse or vegetation. There is no tricuspid valve stenosis. PULMONIC VALVE The pulmonary valve is normal in structure. There is no pulmonic valvular regurgitation. There is no pulmonic valvular stenosis. GREAT VESSELS The aortic root is normal in size. The ascending aorta is normal in size. IVC Doppler evaluation reveals systolic blunting. PERICARDIAL EFFUSION The pericardium appears normal. There is no pleural effusion. <Conclusion> Severely reduced LV systolic function LVEF 20-25% Global Hypokinesis Mild Mitral Regurgitation Severe Tricuspid Regurgitation with normal PA pressures Restrictive Diastolic filling pattern
[2017-12-26] MEDS ORDERED: LIDOCAINE 2% 10ML 20 MG/ML VIAL IJ ONE (13:24)
--- NOTE | 2017-12-26 13:34 | PCM.SURG1 ---
Surgeon's Initial Post Op Note - Surgeon's Notes Surgeon: Adal Gonzalez MD New Account Interviewer: NONE Type of Anesthesia: Local Pre-Operative Diagnosis: Right pleural effusion Operative Findings: US showed a moderate right effusion Post-Operative Diagnosis: Right pleural effusion Operation Performed: US guided right thoracentesis Specimen/Specimens Removed: 900 cc of slight serosanguinous fluid Estimated Blood Loss: EBL {In ML}: 0 Blood Products Given: N/A Drains Used: No Drains Post-Op Condition: Fair Date of Surgery/Procedure: 12/26/17 Time of Surgery/Procedure: 13:30
[2017-12-26 13:58] LABS: ALPHA-1-GLOBULIN (PEP) 0.3 g/dL (0.2-0.3)
[2017-12-26 15:04] LABS: BODY FLUID TYPE PLEURAL/THORACENTESI
--- NOTE | 2017-12-26 15:52 | CP.PCM.PN ---
Subjective - Date & Time of Evaluation Date of Evaluation: 12/26/17 Time of Evaluation: 10:00 - Subjective Subjective: Cardiology Note Pt seen and examined at 10:00 AM Breathing easily Feels about the same as on admission Scheduled for Thoracentesis today Echo: Severe LV dysfunction EF: 20 25% Severe TR Mild MR Objective - Vital Signs/Intake and Output Vital Signs (last 24 hours): Temp Pulse Resp BP Pulse Ox 98.8 F 91 H 19 105/75 98 12/26/17 13:35 12/26/17 13:35 12/26/17 13:35 12/26/17 13:35 12/26/17 13:35 - Medications Medications: Current Medications Acetaminophen (Tylenol 325mg Tab) 650 mg PO Q6 PRN PRN Reason: Pain, Mild (1-3) Apixaban (Eliquis) 2.5 mg PO BID [facility] PRN Reason: Protocol Finasteride (Proscar) 5 mg PO DAILY@1830 [facility] Last Admin: 12/25/17 18:16 Dose: 5 mg Furosemide (Lasix) 40 mg IVP DAILY [facility] Last Admin: 12/26/17 08:35 Dose: 40 mg Latanoprost (Xalatan Opht) 1 drop OU HS [facility] Last Admin: 12/25/17 21:17 Dose: 1 drop Metoprolol Succinate (Toprol Xl) 25 mg PO DAILY [facility] Last Admin: 12/26/17 08:37 Dose: 25 mg Tamsulosin HCl (Flomax) 0.8 mg PO PCS [facility] Last Admin: 12/25/17 19:50 Dose: 0.4 mg Timolol Maleate (Timoptic 0.5% Oph Soln) 1 drop OU DAILY [facility] Last Admin: 12/26/17 08:35 Dose: 1 drop - Labs Labs: 12/26/17 04:20 12/26/17 04:20 PT 16.0 Seconds (9.8-13.1) H 12/25/17 08:06 INR 1.4 (0.9-1.2) H 12/25/17 08:06 APTT 36.6 Seconds (25.6-37.1) 12/25/17 08:06 Assessment and Plan (1) Atrial fibrillation Status: Acute (2) Pleural effusion due to congestive heart failure Status: Acute (3) Acute on chronic systolic congestive heart failure Assessment & Plan: Echo: EF 20 - 25% Status: Acute
[2017-12-26 16:22] LABS: TOTAL PROTEIN,BODY FLUID 3.8 g/dL (NONE ESTABLISHED)
--- NOTE | 2017-12-26 16:32 | RAD ---
PROCEDURE: CHEST RADIOGRAPH, 1 VIEW HISTORY: Status post right thoracentesis COMPARISON: 12/25/2017. FINDINGS: LUNGS: Improved expansion, aeration of the right lung. PLEURA: Substantial decrease in right pleural effusion. Probable small pneumothorax ex vacuo. CARDIOVASCULAR: Normal. OSSEOUS STRUCTURES: No significant abnormalities. VISUALIZED UPPER ABDOMEN: Normal. OTHER FINDINGS: None. IMPRESSION: Status post thoracentesis with re-expansion right lower lobe, small residual right pleural effusion and evidence of pneumothorax ex vacuo.
[2017-12-26 17:28] LABS: BF GROSS APPEARANCE BLOODY (CLEAR); BODY FLUID MONO/MACROPHAGE 4 % (0-0); BODY FLUID TOTAL COUNT 100 (0-0)
[2017-12-26] MEDS: Latanoprost 0.005% Opht SOUTION OU SCH (21:29)
[2017-12-27 06:12] LABS: HEMOGLOBIN 13.7 g/dL (12.0-18.0); MEAN CELL VOLUME 97.7 fl (80.0-94.0); MEAN CORPUSCULAR HEMOGLOBIN 34.1 pg (27.0-31.0); MEAN CORPUSCULAR HGB CONC 34.9 g/dL (33.0-37.0); RBC 4.01 Mil/uL (4.40-5.90); RED CELL DISTRIBUTION WIDTH 14.2 % (11.5-14.5); WHITE BLOOD COUNT 8.4 K/uL (4.8-10.8)
[2017-12-27 06:27] LABS: B-TYPE NATRIURETIC PEPTIDE 1500 pg/ml (0-900)
[2017-12-27 06:38] LABS: BLOOD UREA NITROGEN 33 mg/dl (9-20); CALCIUM 8.7 mg/dL (8.4-10.2); GFR AFRICAN-AMERICAN > 60; GFR NON-AFRICAN AMERICAN > 60
[2017-12-27] MEDS: Metoprolol Succinate 25 mg XL Tab PO SCH (08:36)
--- NOTE | 2017-12-27 09:20 | CP.PCM.PN ---
Subjective - Date & Time of Evaluation Date of Evaluation: 12/27/17 Time of Evaluation: 09:20 - Subjective Subjective: Seated upright in bed. Claims to feel much improved post-thoracentesis. Results of echocardiogram noted. Initial pleural fluid chemistry suggests exudate. Culture and cytology are pending. CT-unofficially; residual effusion noted with air bubbles in the fluid secondary to procedure. Persistent atelectasis, passive, in the right base is still present. Thoracentesis site is clean and dry, dressing removed. There is still dullness in the right base posteriorly wth decreased breath sounds. No rales, rhonchi or rub heard. Dependant edema has resolved (weight down 9 pounds since admission). Will discuss further plans with cardiology. The patient may be reluctant to proceed with any invasive procedures now. May result in discharge and outpatient management/followup. Objective - Vital Signs/Intake and Output Vital Signs (last 24 hours): Temp Pulse Resp BP Pulse Ox 97.8 F 87 20 90/54 L 98 12/27/17 09:00 12/27/17 09:00 12/27/17 09:00 12/27/17 09:00 12/27/17 06:26 - Medications Medications: Current Medications Acetaminophen (Tylenol 325mg Tab) 650 mg PO Q6 PRN PRN Reason: Pain, Mild (1-3) Apixaban (Eliquis) 2.5 mg PO BID [facility] PRN Reason: Protocol Last Admin: 12/27/17 08:32 Dose: 2.5 mg Finasteride (Proscar) 5 mg PO DAILY@1830 [facility] Last Admin: 12/26/17 18:25 Dose: 5 mg Furosemide (Lasix) 40 mg IVP DAILY [facility] Last Admin: 12/27/17 08:36 Dose: Not Given Latanoprost (Xalatan Opht) 1 drop OU HS [facility] Last Admin: 12/26/17 21:29 Dose: 1 drop Metoprolol Succinate (Toprol Xl) 25 mg PO DAILY [facility] Last Admin: 12/27/17 08:36 Dose: Not Given Tamsulosin HCl (Flomax) 0.8 mg PO PCS [facility] Last Admin: 12/26/17 17:24 Dose: 0.8 mg Timolol Maleate (Timoptic 0.5% Ophth Soln) 1 drop OU DAILY [facility] Last Admin: 12/27/17 08:36 Dose: 1 drop - Labs Labs: 12/27/17 05:00 12/27/17 05:00 PT 16.0 Seconds (9.8-13.1) H 12/25/17 08:06 INR 1.4 (0.9-1.2) H 12/25/17 08:06 APTT 36.6 Seconds (25.6-37.1) 12/25/17 08:06 Assessment and Plan (1) Atrial fibrillation Status: Acute (2) Pleural effusion due to congestive heart failure Status: Acute (3) Acute on chronic systolic congestive heart failure Status: Acute
--- NOTE | 2017-12-27 10:04 | RAD ---
PROCEDURE: CHEST RADIOGRAPH, 1 VIEW HISTORY: small Pneumothorax post thoracentesis COMPARISON: Chest radiograph dated 12/26/2017 FINDINGS: LUNGS: Biapical scarring. PLEURA: Small to moderate right residual diffusion with small pneumothorax ex vacuo versus iatrogenic air introduced in the pleural space from recent thoracentesis. CARDIOVASCULAR: Cardiomediastinal silhouette stably enlarged. OSSEOUS STRUCTURES: Unchanged. VISUALIZED UPPER ABDOMEN: Normal. OTHER FINDINGS: None. IMPRESSION: Small to moderate residual right pleural effusion with small pneumothorax ex vacuo versus iatrogenic air introduced into the pleural space from recent thoracentesis.
--- NOTE | 2017-12-27 10:54 | CT ---
PROCEDURE: CT Chest without contrast HISTORY: pleural effusion COMPARISON: Chest radiograph dated 12/26/2017. TECHNIQUE: Contiguous axial images were obtained through the chest without intravenous contrast enhancement. Sagittal and coronal reconstructions were performed. Radiation dose (DLP): 225.7 mGy-cm. This CT exam was performed using one or more of the following dose reduction techniques: Automated exposure control, adjustment of the mA and/or kV according to patient size, and/or use of iterative reconstruction technique. FINDINGS: LUNGS: Biapical scarring. Right middle and lower lobe atelectasis Visualized airway clear. MEDIASTINUM: Unremarkable thoracic aorta. No aneurysm. Normal sized heart. Main pulmonary artery unremarkable. No vascular congestion. No lymphadenopathy. PLEURA: Small to moderate residual right pleural effusion post thoracentesis with scattered foci of air in a random distribution. BONES: Scoliosis. No fracture. No destructive lesion. UPPER ABDOMEN: Grossly unremarkable. OTHER FINDINGS: None. IMPRESSION: Small to moderate residual right pleural effusion post thoracentesis with scattered foci of air in right in distribution. Findings are suggestive of complex pleural effusion with loculations. The pleural air may represent a combination of pneumothorax ex vacuo and/or air introduced iatrogenically during thoracentesis procedure.
--- NOTE | 2017-12-27 12:05 | CARD ---
APPROVED REPORT EKG Measurement Heart [id number] <Conclusion> Atrial fibrillation Incomplete right bundle branch block Abnormal ECG
[2017-12-27 13:36] VITALS: PULSE 112; TEMP 97.7
--- NOTE | 2017-12-27 13:46 | CP.PCM.PN ---
Subjective - Date & Time of Evaluation Date of Evaluation: 12/27/17 Time of Evaluation: 13:44 - Subjective Subjective: Pt is breathing easier today s/p Thoracentesis 900 cc removed Echo noted pt does not want to have any further w/u Suggested that as an out patient he follow up with me or health center associate of his choosing Objective - Vital Signs/Intake and Output Vital Signs (last 24 hours): Temp Pulse Resp BP Pulse Ox 97.7 F 112 H 20 92/61 L 95 12/27/17 13:35 12/27/17 13:35 12/27/17 13:35 12/27/17 13:35 12/27/17 13:35 - Medications Medications: Current Medications Acetaminophen (Tylenol 325mg Tab) 650 mg PO Q6 PRN PRN Reason: Pain, Mild (1-3) Apixaban (Eliquis) 2.5 mg PO BID [facility] PRN Reason: Protocol Last Admin: 12/27/17 08:32 Dose: 2.5 mg Finasteride (Proscar) 5 mg PO DAILY@1830 [facility] Last Admin: 12/26/17 18:25 Dose: 5 mg Furosemide (Lasix) 40 mg IVP DAILY [facility] Last Admin: 12/27/17 08:36 Dose: Not Given Latanoprost (Xalatan Opht) 1 drop OU HS [facility] Last Admin: 12/26/17 21:29 Dose: 1 drop Metoprolol Succinate (Toprol Xl) 25 mg PO DAILY [facility] Last Admin: 12/27/17 08:36 Dose: Not Given Tamsulosin HCl (Flomax) 0.8 mg PO PCS [facility] Last Admin: 12/26/17 17:24 Dose: 0.8 mg Timolol Maleate (Timoptic 0.5% Ophth Soln) 1 drop OU DAILY [facility] Last Admin: 12/27/17 08:36 Dose: 1 drop - Labs Labs: 12/27/17 05:00 12/27/17 05:00 PT 16.0 Seconds (9.8-13.1) H 12/25/17 08:06 INR 1.4 (0.9-1.2) H 12/25/17 08:06 APTT 36.6 Seconds (25.6-37.1) 12/25/17 08:06 Assessment and Plan (1) Atrial fibrillation Status: Acute (2) Pleural effusion due to congestive heart failure Status: Acute (3) Acute on chronic systolic congestive heart failure Status: Acute
--- NOTE | 2017-12-27 14:41 | CP.PCM.DIS ---
Provider - Provider Date of Admission: 12/25/17 09:48 Attending physician: Albin Chen DO Primary care physician: Dr. Briscoe Consults: Pulmonary consult cardiology consult IR consult Time Spent in preparation of Discharge (in minutes): 15 Hospital Course - Lab Results Lab Results: Most Recent Lab Values WBC 8.4 K/uL (4.8-10.8) D 12/27/17 05:00 RBC 4.01 Mil/uL (4.40-5.90) L 12/27/17 05:00 Hgb 13.7 g/dL (12.0-18.0) 12/27/17 05:00 Hct 39.2 % (35.0-51.0) 12/27/17 05:00 MCV 97.7 fl (80.0-94.0) H 12/27/17 05:00 MCH 34.1 pg (27.0-31.0) H 12/27/17 05:00 MCHC 34.9 g/dL (33.0-37.0) 12/27/17 05:00 RDW 14.2 % (11.5-14.5) 12/27/17 05:00 Plt Count 209 K/uL (130-400) 12/27/17 05:00 MPV 7.3 fl (7.2-11.7) 12/25/17 08:06 Neut % (Auto) 75.1 % (50.0-75.0) H 12/25/17 08:06 Lymph % (Auto) 15.7 % (20.0-40.0) L 12/25/17 08:06 [place] % (Auto) 7.4 % (0.0-10.0) 12/25/17 08:06 Eos % (Auto) 1.4 % (0.0-4.0) 12/25/17 08:06 Baso % (Auto) 0.4 % (0.0-2.0) 12/25/17 08:06 Neut # (Auto) 4.5 K/uL (1.8-7.0) 12/25/17 08:06 Lymph # (Auto) 1.0 K/uL (1.0-4.3) 12/25/17 08:06 [place] # (Auto) 0.4 K/uL (0.0-0.8) 12/25/17 08:06 Eos # (Auto) 0.1 K/uL (0.0-0.7) 12/25/17 08:06 Baso # (Auto) 0.0 K/uL (0.0-0.2) 12/25/17 08:06 PT 16.0 Seconds (9.8-13.1) H 12/25/17 08:06 INR 1.4 (0.9-1.2) H 12/25/17 08:06 APTT 36.6 Seconds (25.6-37.1) 12/25/17 08:06 Sodium 136 mmol/l (132-148) 12/27/17 05:00 Potassium 4.2 MMOL/L (3.6-5.0) 12/27/17 05:00 Chloride 99 mmol/L (98-107) 12/27/17 05:00 Carbon Dioxide 27 mmol/L (22-30) 12/27/17 05:00 Anion Gap 14 (10-20) 12/27/17 05:00 BUN 33 mg/dl (9-20) H 12/27/17 05:00 Creatinine 0.8 mg/dl (0.8-1.5) 12/27/17 05:00 Est GFR ( Amer) > 60 12/27/17 05:00 Est GFR (Non-Af Amer) > 60 12/27/17 05:00 Random Glucose 98 mg/dL (75-110) 12/27/17 05:00 Calcium 8.7 mg/dL (8.4-10.2) 12/27/17 05:00 Total Bilirubin 1.5 mg/dl (0.2-1.3) H 12/25/17 08:06 AST 28 U/L (17-59) 12/25/17 08:06 ALT 29 U/L (21-72) 12/25/17 08:06 Alkaline Phosphatase 179 U/L (38-126) H 12/25/17 08:06 Lactate Dehydrogenase 329 U/L (313-618) 12/25/17 12:30 Troponin I < 0.0120 ng/mL (0.00-0.120) 12/25/17 08:06 NT-Pro-B Natriuret Pep 1500 pg/ml (0-900) H 12/27/17 05:00 Total Protein 8.8 G/DL (6.3-8.2) H 12/25/17 08:06 Total Protein (PEP) 7.1 g/dL (6.1-8.1) 12/25/17 12:30 Albumin 4.0 g/dL (3.5-5.0) 12/25/17 08:06 Albumin (PEP) 3.0 g/dL (3.8-4.8) L 12/25/17 12:30 Globulin 4.8 gm/dL (2.2-3.9) H 12/25/17 08:06 Albumin/Globulin Ratio 0.8 (1.0-2.1) L 12/25/17 08:06 [place]-9-Jcwrxazbt 0.3 g/dL (0.2-0.3) 12/25/17 12:30 Qmuhm-7-Zlhjhvuld 0.7 g/dL (0.5-0.9) 12/25/17 12:30 Qpcl-6-Rcbhhocv 0.4 g/dL (0.4-0.6) 12/25/17 12:30 Unpn-2-Sxenvlws 0.5 g/dL (0.2-0.5) 12/25/17 12:30 Gamma Globulins 2.1 g/dL (0.8-1.7) H 12/25/17 12:30 Abnorm Protein Band 1 TEST NOT PERFORMED 12/25/17 12:30 Abnorm Protein Band 2 TEST NOT PERFORMED 12/25/17 12:30 Abnorm Protein Band 3 TEST NOT PERFORMED 12/25/17 12:30 Urine Color Yellow (YELLOW) 12/25/17 10:30 Urine Clarity Clear (Clear) 12/25/17 10:30 Urine pH 7.0 (5.0-8.0) 12/25/17 10:30 Ur Specific [place] 1.011 (1.003-1.030) 12/25/17 10:30 Urine Protein Negative mg/dL (NEGATIVE) 12/25/17 10:30 Urine Glucose (UA) Neg mg/dL (Normal) 12/25/17 10:30 Urine Ketones Negative mg/dL (NEGATIVE) 12/25/17 10:30 Urine Blood Negative (NEGATIVE) 12/25/17 10:30 Urine Nitrate Negative (NEGATIVE) 12/25/17 10:30 Urine Bilirubin Negative (NEGATIVE) 12/25/17 10:30 Urine Urobilinogen 0.2-1.0 mg/dL (0.2-1.0) 12/25/17 10:30 Ur Leukocyte Esterase Neg [place]/uL (Negative) 12/25/17 10:30 Urine RBC (Auto) 2 /hpf (0-3) 12/25/17 10:30 Urine Microscopic WBC 1 /hpf (0-5) 12/25/17 10:30 Urine Bacteria Rare (<OCC) 12/25/17 10:30 Fluid Source Pleural/thoracentesi 12/26/17 13:35 Fluid Appearance Bloody (CLEAR) 12/26/17 13:35 Fluid WBC 1036.0 /mm3 (0.0-300.0) H 12/26/17 13:35 Fluid RBC 57946.0 /mm3 (0.0-0.0) H 12/26/17 13:35 Fluid Tot Cell Count 100 (0-0) H 12/26/17 13:35 Fluid Neutrophils 2.0 % (0-0) H 12/26/17 13:35 Fluid Lymphocytes 94.0 % (0-0) H 12/26/17 13:35 Fld Monocyte/Macrophag 4 % (0-0) H 12/26/17 13:35 Fluid Glucose 77 mg/dL (NONE ESTABLISHED) 12/26/17 13:35 Fluid Total Protein 3.8 g/dL (NONE ESTABLISHED) 12/26/17 13:35 Fluid LDH 464 IU (NONE ESTABLISHED) 12/26/17 13:35 Fluid Comment Sl cloudy 12/26/17 13:35 HAIDER & SPEP Interp See note 12/25/17 12:30 - Hospital Course Hospital Course: 82 year old male with a past medical history of chronic atrial fibrillation anticoagulated on Eliquis, history of CHF, came in because of worsening progressive SOB and leg edema. Found to be in CHF exacerbation with elevated Pro-BNP and moderate Right pleural effusion. Cardiology and pulmonary consulted and he was placed under observation in telemetry. Started on lasix IV . IR consulted and after eliquis was discontinued . 24 hours patient underwent right side thorasenthesis with removal 900 ml transudate fluid Patient clinically improved and his SOB is better . Post thoracenthesis CXr and CT chest showed small residual pneumothorax that remained stable after repeat imaging. Echo showed EF 20-25 5 with global hypokinesis. Further cardiac work up with cardiac cath was recommended to patient by communication specialist but patient refusing for now. Patient clinically improved . Will d/c home Advise to follow up with Dr. Briscoe and communication specialist Dr. David 1. Acute on Chronic CHF exacerbation, Systolic and Diastolic Dysfunction, EF 20 -25% ECHO shows : severe LV dysfunction, EF 20-25%, Global Hypokinesia, Severe TR cont Lasix and Toprol XL cardio consulted: Dr David BNP 2009 Will need work up as outpatient with cardiac cath - 2.Right sided pleural effusion- transudate secondary to CHF s/p thoracenthesis with removal 900 ml 3. Chronic atrial fibrillation, rate controlled Continue Metoprolol 25 mg po daily resume eliquis 4.Post Thoracenthesis small pneumothorax Stable with follow up imaging small right pneumothorax noted post procedure 5. BPH on Proscar 6. Glaucoma Continue Timolol 1 drop OU daily Discharge Exam - Head Exam Head Exam: ATRAUMATIC, NORMAL INSPECTION, NORMOCEPHALIC - Eye Exam Eye Exam: PERRL Pupil Exam: NORMAL ACCOMODATION - ENT Exam ENT Exam: Mucous Membranes Moist, Normal Exam - Neck Exam Neck exam: Full Rom, Normal Inspection - Respiratory Exam Respiratory Exam: Decreased Breath Sounds (right base ), Clear to PA & Lateral, NORMAL BREATHING PATTERN. absent: Rhonchi, Wheezes, Respiratory Distress - Cardiovascular Exam Cardiovascular Exam: Irregular Rhythm, +S1, +S2. absent: JVD - GI/Abdominal Exam GI & Abdominal Exam: Normal Bowel Sounds, Soft. absent: Distended, Guarding, Mass, Rebound, Tenderness - Rectal Exam Rectal Exam: Deferred - Extremities Exam Extremities exam: normal capillary refill, normal inspection, pedal pulses present - Back Exam Back exam: NORMAL INSPECTION - Neurological Exam Neurological exam: Alert, CN II-XII Intact, Oriented x3, Reflexes Normal - Psychiatric Exam Psychiatric exam: Normal Affect - Skin Skin Exam: Dry, Warm Discharge Plan - Discharge Medications Prescriptions: Tamsulosin [Flomax] 0.8 mg PO PCS #60 cap - Follow Up Plan Condition: STABLE Disposition: HOME/ ROUTINE Patient education suggested?: Yes Instructions: Heart Failure, Adult (DC) Referrals: Fady Briscoe MD [Staff Provider] - Brandon David MD [Staff Provider] - Clinical Quality Measures - CQM - Heart Failure Ejection Fraction: Less Than 40 % Beta-Heather Prescribed: Metoprolol Succinate AnticoagulationTherapy for Atrial Fibrillation/Atrialflutter: Yes Will be discharged to: Home Follow Up Date (must be within 7 days from discharge): 12/31/17 Follow Up Time: 09:00
[2017-12-27 16:00] VITALS: BP 90/58; RESP 18
--- NOTE | 2017-12-28 12:14 | CARD ---
APPROVED REPORT EKG Measurement Heart [id number] <Conclusion> Atrial fibrillation Incomplete right bundle branch block Abnormal ECG
[2017-12-30 10:07] VITALS: O2SAT 98
--- NOTE | 2017-12-31 14:19 | PCM.SURG1 ---
Surgeon's Initial Post Op Note - Surgeon's Notes Surgeon: Adal Starks MD Mental Health Therapist: NONE Type of Anesthesia: Local Pre-Operative Diagnosis: Right pleural effusion Operative Findings: US showed moderate right effusion Post-Operative Diagnosis: Right pleura effusion Operation Performed: US guided right thoracentesis Specimen/Specimens Removed: 900 cc of straw colored fluid Estimated Blood Loss: EBL {In ML}: 0 Blood Products Given: N/A Drains Used: No Drains Post-Op Condition: Fair Date of Surgery/Procedure: 12/26/17 Time of Surgery/Procedure: 13:30
--- NOTE | 2017-12-31 14:24 | US ---
PROCEDURE: Date of procedure: 12/26/2017 Procedure: 1. Ultrasound-guided Right thoracentesis, CPT 57178 Medications: 8cc 1% Lidocaine HISTORY: Right pleural effusion, shortness of breath TECHNIQUE: Following informed consent ,the Patients' right chest was marked. Procedure time-out was called, and the patient was placed in the sitting position and limited ultrasound showed a large right effusion. The patient's right back was prepped and draped in the usual sterile fashion. After the skin was anesthetized with lidocaine, a drainage catheter was advanced under ultrasound guidance into the pleural space. Ultrasound-guided thoracentesis was performed. A total of 900 cubic centimeters of straw-colored fluid removed without complication. A Xeroform dressing was applied. IMPRESSION: Ultrasound guided Right thoracentesis. There were no immediate complications.
== END 2017-12-27 17:27 | disposition home or self-care (01) | DRG 292 ==
LOC: H.ER 07:36 → H.ERHOLD 09:48 → H.TEL 10:57
PROVIDERS: ADMIT Internal Medicine; ATTEND Internal Medicine
PROC: 0W993ZZ Drainage of Right Pleural Cavity, Percutaneous Approach (ICD-10-PCS; principal; 2017-12-26)
DX: I50.43 Acute on chronic combined systolic (congestive) and diastolic (congestive) heart failure (principal); J98.11 Atelectasis; N13.8 Other obstructive and reflux uropathy; J91.8 Pleural effusion in other conditions classified elsewhere; J95.811 Postprocedural pneumothorax; I48.2 Chronic atrial fibrillation; H40.9 Unspecified glaucoma; N40.1 Benign prostatic hyperplasia with lower urinary tract symptoms; Z79.01 Long term (current) use of anticoagulants; J44.9 Chronic obstructive pulmonary disease, unspecified; F17.200 Nicotine dependence, unspecified, uncomplicated

== ENCOUNTER 2018-02-23 10:07 | Observation (INO) | payer MEDICARE ==
[2018-02-23 10:19] VITALS: BMI 17.4
--- NOTE | 2018-02-23 10:32 | ED PDOC ---
HPI: General Adult Time Seen by Provider: 02/23/18 10:32 Chief Complaint (Nursing): Trauma Chief Complaint (Provider): head trauma History Per: Patient, Family Additional Complaint(s): 82-year-old male presents to emergency department for evaluation status post head trauma. Patient states he woke up this morning and weight himself which he does every morning. He tripped and fell but is not sure if he felt dizzy or flet faint prior to falling. Patient denies any associated chest pain. He does state he has been feeling more tired than usual secondary to the heat. Upon arrival he denies any acute pain, denies chest pain, shortness of breath or dyspnea on exertion. PMD: Dr. Briscoe Past Medical History Reviewed: Historical Data, Nursing Documentation, Vital Signs Vital Signs: Last Vital Signs Temp 98.5 F 02/23/18 10:17 Pulse 88 02/23/18 10:17 Resp 16 02/23/18 10:17 BP 94/63 L 02/23/18 10:17 Pulse Ox 91 L 02/23/18 12:37 - Medical History PMH: Atrial Fibrillation, Benign Prostatic Hyperplasia, CHF - Surgical History Surgical History: Appendectomy - Family History Family History: States: No Known Family Hx - Living Arrangements Living Arrangements: With Family - Social History Current smoker - smoking cessation education provided: No Alcohol: None Drugs: Denies - Immunization History Hx Tetanus Toxoid Vaccination: No (not sure) - Home Medications Home Medications: Ambulatory Orders Medication Instructions Recorded Apixaban [Eliquis] 1 tab PO BID 12/25/17 Finasteride [Proscar] 1 tab PO DAILY 12/25/17 Furosemide [Lasix] 1 tab PO BID 12/25/17 Metoprolol Succinate [Toprol Xl] 1 tab PO DAILY 12/25/17 Timolol [Betimol] 1 drop BOTHEYES DAILY 12/25/17 Latanoprost 0.005% Opht [Xalatan 1 drop BOTHEYES HS 02/23/18 Opht] Spironolactone [Aldactone] 25 mg PO DAILY 02/23/18 Tamsulosin [Flomax] 0.8 mg PO DAILY 02/23/18 - Allergies Allergies/Adverse Reactions: Allergies Allergy/AdvReac Type Severity Reaction Status Date / Time No Known Allergies Allergy Verified 12/25/17 07:49 Review of Systems ROS Statement: Except As Marked, All Systems Reviewed And Found Negative Constitutional: Positive for: Other (fatigue). Negative for: Fever, Chills, Weakness Cardiovascular: Negative for: Chest Pain, Palpitations Respiratory: Negative for: Cough Gastrointestinal: Negative for: Nausea, Vomiting Neurological: Positive for: Other (head injury with no LOC, ? syncope). Negative for: Dizziness Physical Exam - Reviewed Nursing Documentation Reviewed: Yes Vital Signs Reviewed: Yes - Physical Exam Appears: Positive for: Well Head Exam: Negative for: ATRAUMATIC (1 cm superficial laceration to anterior scalp, no active bleeding, additional 1.5 cm superficial laceration also noted anteriorly, additional 2 cm superficial flap laceration noted anteriorly, no active bleeding noted to only laceration, neurovascular intact) Skin: Positive for: Normal Color. Negative for: Rash Eye Exam: Positive for: Normal appearance, EOMI, PERRL, Other (Abrasion noted to right upper eyelid with mild swelling) Neck: Positive for: Normal. Negative for: Pain On Movement Of Neck Cardiovascular/Chest: Positive for: Regular Rate, Rhythm Respiratory: Positive for: Normal Breath Sounds. Negative for: Wheezing, Respiratory Distress Gastrointestinal/Abdominal: Positive for: Soft. Negative for: Tenderness, Distended, Guarding, Rebound Back: Negative for: L CVA Tenderness, R CVA Tenderness Extremity: Positive for: Normal ROM Neurologic/Psych: Positive for: Alert, Oriented - Laboratory Results Result Diagrams: 02/23/18 10:59 02/23/18 10:59 - ECG Interpretation Of ECG: A-fib 103 bpm, reviewed by PA and ED attending O2 Sat by Pulse Oximetry: 91 - Other Rad CXR X-Ray: Interpreted by Me, Viewed By Me X-Ray Interpretation: no interval changes CT head X-Ray: Read By Radiologist X-Ray Interpretation: see below Medical Decision Making Medical Decision Makin82 y/o male with head injury, ? syncope Plan: EKG CXR CT head Adacel IM CBC CMP BNP Trop IVF at 100 cc/hr CT: IMPRESSION: Right frontal parietal scalp swelling. No calvarial fracture. No acute intracranial pathology or hemorrhage. Age-related changes. PMD is Dr. Briscoe, case was d/w him and he agrees with admission, states to admit to hospitalist service, obs-tele. Dr. Hinds made aware. Procedures - Laceration/Wound Repair Scalp laceration x 2 Wound's Depth, Shape: superficial Wound Explored: no foreign body removed Irrigated w/ Saline (ccs): 10 Betadine Prep?: Yes Wound Repaired With: [place] (total of 4 marjorie placed after application of topical EMLA cream) Layer Closure?: No Wound Complexity: Simple Sterile Dressing Applied?: No Splint Applied?: No Sling Applied?: No Progress: Procedure tolerated well by patient, no complications. Disposition - Clinical Impression Clinical Impression: Syncope, Head injury - Patient ED Disposition Is Patient to be Admitted: No - Disposition Disposition Time: 13:16 Condition: FAIR Forms: Karma ([place]) - Pt Status Changed To: Hospital Disposition Of: Observation Results - Lab Results Lab Results: 02/23/18 02/23/18 02/23/18 10:59 10:59 10:59 WBC 6.6 RBC 4.37 L Hgb 14.8 Hct 42.9 MCV 98.4 H MCH 33.9 H MCHC 34.4 RDW 15.0 H Plt Count 191 MPV 7.4 Neut % (Auto) 80.5 H Lymph % (Auto) 10.4 L [place] % (Auto) 8.0 Eos % (Auto) 0.7 Baso % (Auto) 0.4 Neut # (Auto) 5.3 Lymph # (Auto) 0.7 L [place] # (Auto) 0.5 Eos # (Auto) 0.0 Baso # (Auto) 0.0 PT 16.7 H INR 1.5 H APTT 35.2 Sodium 142 Potassium 4.3 Chloride 96 L Carbon Dioxide 34 H Anion Gap 16 BUN 41 H Creatinine 1.4 Est GFR ( Amer) 59 Est GFR (Non-Af Amer) 49 Random Glucose 110 Calcium 9.6 Total Bilirubin 1.7 H AST 30 ALT 23 Alkaline Phosphatase 165 H Troponin I < 0.0120 NT-Pro-B Natriuret Pep 3000 H Total Protein 8.7 H Albumin 4.1 Globulin 4.6 H Albumin/Globulin Ratio 0.9 L
[2018-02-23] MEDS ORDERED: Tdap Vaccine 0.5 ml Vial (10-64 yrs) IM ONE ×2 (10:39→11:55)
[2018-02-23] MEDS ORDERED: Sodium Chloride 0.9% 1,000 ML IV STA (10:39)
[2018-02-23] MEDS ORDERED: Lidocaine/Prilocaine CREAM 5GM TP STA (10:44)
[2018-02-23 11:10] LABS: BASO % 0.4 % (0.0-2.0); EOS % 0.7 % (0.0-4.0); HEMOGLOBIN 14.8 g/dL (12.0-18.0); LYMPH # 0.7 K/uL (1.0-4.3); LYMPH % 10.4 % (20.0-40.0); MEAN CELL VOLUME 98.4 fl (80.0-94.0); MEAN CORPUSCULAR HEMOGLOBIN 33.9 pg (27.0-31.0); MEAN CORPUSCULAR HGB CONC 34.4 g/dL (33.0-37.0); MEAN PLATELET VOLUME 7.4 fl (7.2-11.7); MONO # 0.5 K/uL (0.0-0.8); NEUT # 5.3 K/uL (1.8-7.0); NEUT % 80.5 % (50.0-75.0); RBC 4.37 Mil/uL (4.40-5.90); WHITE BLOOD COUNT 6.6 K/uL (4.8-10.8)
[2018-02-23 11:31] LABS: INR 1.5 (0.9-1.2); PARTIAL THROMBOPLASTIN TIME 35.2 Seconds (25.6-37.1); PROTHROMBIN TIME 16.7 Seconds (9.8-13.1)
--- NOTE | 2018-02-23 11:44 | CT ---
PROCEDURE: CT HEAD WITHOUT CONTRAST. HISTORY: trauma COMPARISON: CT head dated 01/20/2011. TECHNIQUE: Axial computed tomography images were obtained through the head/brain without intravenous contrast. Radiation dose: Total exam DLP = 901.7 mGy-cm. This CT exam was performed using one or more of the following dose reduction techniques: Automated exposure control, adjustment of the mA and/or kV according to patient size, and/or use of iterative reconstruction technique. FINDINGS: HEMORRHAGE: No intracranial hemorrhage. BRAIN: No mass effect or edema. Mild atrophy. Chronic microvascular ischemic changes. Bilateral basal ganglia lacunar infarctions. VENTRICLES: Unremarkable. No hydrocephalus. CALVARIUM: Unremarkable. PARANASAL SINUSES: Unremarkable as visualized. No significant inflammatory changes. MASTOID AIR CELLS: Unremarkable as visualized. No inflammatory changes. OTHER FINDINGS: Right frontoparietal scalp swelling. IMPRESSION: Right frontal parietal scalp swelling. No calvarial fracture. No acute intracranial pathology or hemorrhage. Age-related changes.
[2018-02-23] MEDS ORDERED: Lidocaine/Prilocaine CREAM 5GM TP ONE (11:55)
[2018-02-23 12:04] LABS: ALB/GLOB RATIO 0.9 (1.0-2.1); ALBUMIN 4.1 g/dL (3.5-5.0); ALT/SGPT 23 U/L (21-72); AST/SGOT 30 U/L (17-59); BLOOD UREA NITROGEN 41 mg/dl (9-20); CALCIUM 9.6 mg/dL (8.4-10.2); GFR AFRICAN-AMERICAN 59; GFR NON-AFRICAN AMERICAN 49
[2018-02-23 12:07] LABS: B-TYPE NATRIURETIC PEPTIDE 3000 pg/ml (0-900)
--- NOTE | 2018-02-23 12:46 | RAD ---
HISTORY: clearance COMPARISON: No prior. FINDINGS: LUNGS: Right basilar atelectasis with consolidation not excluded. PLEURA: Slightly right pleural effusion. No pneumothorax apparent. CARDIOVASCULAR: Atherosclerotic aortic calcifications. Cardiomediastinal silhouette stably enlarged. OSSEOUS STRUCTURES: Unchanged. VISUALIZED UPPER ABDOMEN: Normal. OTHER FINDINGS: None. IMPRESSION: Moderate right pleural effusion with underlying mass and/or consolidation not excluded. Follow-up to resolution.
--- NOTE | 2018-02-23 13:21 | CP.PCM.CON ---
History of Present Illness - History of Present Illness History of Present Illness: Patient was seen in the emergency department on presentation. He had been in his usual state of health at home but had an apparent syncopal episode in the morning with apparent superficial head trauma. Patient has no recollection of the event. CT scan of the head has been done. He denies any preceding chest pain or nausea, but became lightheaded and lost consciousness. His respiratory status has remained stable, and his chronic CHF has been managed with diuretic therapy. His chronic a fib has been managed with beta-irving for rate control. He has been found to have rEF systolic/diastolic heart failure, but has declined further workup for same. He has a chronic right pleural effusion as a result. A prior hospital admission and thoracentesis revealed an exudative effusion with negative cytology. 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 No history of pneumonia, asthma, coronary artery disease, hypertension, diabetes, peptic ulcer disease, chronic renal disease, liver disease or bleeding disorder. Past surgical history: Appendectomy 1946, removal of testicular cyst 1977. Family history: Cerebrovascular accident. Social history: Never smoker. Social alcohol only. Denies illicit drug use. Past Patient History - Infectious Disease Hx of Infectious Diseases: None - Past Medical History & Family History Past Medical History?: Yes - Past Social History Smoking Status: Never Smoked Chewing Tobacco Use: No Cigar Use: No Alcohol: None Drugs: Denies Home Situation {Lives}: Alone - CARDIAC Hx Atrial Fibrillation: Yes Hx Congestive Heart Failure: Yes Hx Peripheral Edema: Yes - PULMONARY Other/Comment: exudative pleural effusion. - NEUROLOGICAL Hx Neurological Disorder: No - HEENT Hx Glaucoma: Yes - RENAL Hx Chronic Kidney Disease: No - ENDOCRINE/METABOLIC Hx Endocrine Disorders: No - HEMATOLOGICAL/ONCOLOGICAL Hx Cancer: Yes (skin cancer) Hx Human Immunodeficiency Virus (HIV): No - INTEGUMENTARY Hx Basil Cell: Yes - MUSCULOSKELETAL/RHEUMATOLOGICAL Hx Musculoskeletal Disorders: Yes Hx Falls: Yes - GASTROINTESTINAL Hx Gastrointestinal Disorders: No - GENITOURINARY/GYNECOLOGICAL Hx Genitourinary Disorders: Yes Hx Prostate Problems: Yes - PSYCHIATRIC Hx Psychophysiologic Disorder: No Hx Substance Use: No - SURGICAL HISTORY Hx Appendectomy: Yes - ANESTHESIA Hx Anesthesia: No Meds Allergies/Adverse Reactions: Allergies Allergy/AdvReac Type Severity Reaction Status Date / Time No Known Allergies Allergy Verified 12/25/17 07:49 - Medications Medications: Current Medications Sodium Chloride (Sodium Chloride 0.9%) 1,000 mls @ 100 mls/hr IV .Q10H STA Stop: 02/23/18 20:38 Last Admin: 02/23/18 11:56 Dose: 100 mls/hr Physical Exam - Additional Findings Additional findings: Thin, well developed male in no acute distress. + dependant edema of both lower extremities. Dusky nailbeds, no clubbing, no calf tenderness, no palpable venous cords. No palpable abnormal lymphadenopathy. Conjunctivae pink w/o scleral icterus, MANUEL, EOMI. Pharynx pink with moist membranes, no exudate. Nares patent bilaterally w/o bleeding or exudate. Neck is supple and trachea midline. No visible JVD, no carotid bruit. + dullness on percussion at base of right hemithorax. Breath sounds are absent in the right base posteriorly and laterally. Breath sounds are present in the remaining lung fair w/o wheezes or bronchial breathing. Heart sounds well heard, irreg/irreg rhythm, no abn precordial motion, no murmur. Abdomen is soft and non-tender with normal bowel sounds, no palpable HSM. No CVA tenderness. Lacerations of the scalp with staple closure right parieto/occipital area. Results - Vital Signs Recent Vital Signs: Last Vital Signs Temp 98.5 F 02/23/18 10:17 Pulse 88 02/23/18 10:17 Resp 16 02/23/18 10:17 BP 94/63 L 02/23/18 10:17 Pulse Ox 91 L 02/23/18 13:17 - Labs Result Diagrams: 02/24/18 07:01 02/24/18 07:01 Labs: Laboratory Results - last 24 hr 02/23/18 02/23/18 02/23/18 10:59 10:59 10:59 WBC 6.6 RBC 4.37 L Hgb 14.8 Hct 42.9 MCV 98.4 H MCH 33.9 H MCHC 34.4 RDW 15.0 H Plt Count 191 MPV 7.4 Neut % (Auto) 80.5 H Lymph % (Auto) 10.4 L [place] % (Auto) 8.0 Eos % (Auto) 0.7 Baso % (Auto) 0.4 Neut # (Auto) 5.3 Lymph # (Auto) 0.7 L [place] # (Auto) 0.5 Eos # (Auto) 0.0 Baso # (Auto) 0.0 PT 16.7 H INR 1.5 H APTT 35.2 Sodium 142 Potassium 4.3 Chloride 96 L Carbon Dioxide 34 H Anion Gap 16 BUN 41 H Creatinine 1.4 Est GFR ( Amer) 59 Est GFR (Non-Af Amer) 49 Random Glucose 110 Calcium 9.6 Total Bilirubin 1.7 H AST 30 ALT 23 Alkaline Phosphatase 165 H Troponin I < 0.0120 NT-Pro-B Natriuret Pep 3000 H Total Protein 8.7 H Albumin 4.1 Globulin 4.6 H Albumin/Globulin Ratio 0.9 L Assessment & Plan (1) Syncope Status: Acute Priority: High (2) Chronic systolic congestive heart failure Status: Chronic Priority: High (3) Atrial fibrillation Status: Chronic Priority: High (4) Pleural effusion due to congestive heart failure Status: Chronic Priority: High - Date & Time Date: 02/23/18 Time: 13:21
--- NOTE | 2018-02-23 13:32 | CP.PCM.HP ---
History of Present Illness - History of Present Illness History of Present Illness: 82 yo male with history of Chronic AFib, Chronic Right Sided Pleural Effusion and CHF felt dizzy and fell on the floor earlier today. He was not sure if he passed out. Patient was alone and did not have any witness. He denied chest pain , SOB, fever or chills. He had ECHO on last admission in Dec, 2017 and was advised to have further cardiac work up but refused. EF was 20-25 with global hypokinesis. Present on Admission - Present on Admission Any Indicators Present on Admission: No History of DVT/PE: No History of Uncontrolled Diabetes: No Urinary Catheter: No Decubitus Ulcer Present: No Review of Systems - Review of Systems All systems: reviewed and no additional remarkable complaints except (aside from those mentioned above, 12 point system review were negative by me) Past Patient History - Infectious Disease Hx of Infectious Diseases: None - Tetanus Immunizations Tetanus Immunization: Unknown - Past Medical History & Family History Past Medical History?: Yes - Past Social History Smoking Status: Never Smoked Chewing Tobacco Use: No Cigar Use: No Alcohol: None Drugs: Denies - CARDIAC Hx Atrial Fibrillation: Yes Hx Congestive Heart Failure: Yes Hx Hypotension: Yes Hx Peripheral Edema: Yes - PULMONARY Hx Respiratory Disorders: Yes Other/Comment: pleural effusion. - NEUROLOGICAL Hx Neurological Disorder: No - HEENT Hx HEENT Problems: Yes Hx Glaucoma: Yes - RENAL Hx Chronic Kidney Disease: No - ENDOCRINE/METABOLIC Hx Endocrine Disorders: No - HEMATOLOGICAL/ONCOLOGICAL Hx Human Immunodeficiency Virus (HIV): No - INTEGUMENTARY Hx Dermatological Problems: Yes Hx Basil Cell: Yes - MUSCULOSKELETAL/RHEUMATOLOGICAL Hx Musculoskeletal Disorders: Yes Hx Falls: Yes - GASTROINTESTINAL Hx Gastrointestinal Disorders: No - GENITOURINARY/GYNECOLOGICAL Hx Genitourinary Disorders: Yes - PSYCHIATRIC Hx Psychophysiologic Disorder: No Hx Substance Use: No - SURGICAL HISTORY Hx Appendectomy: Yes - ANESTHESIA Hx Anesthesia: Yes Hx Anesthesia Reactions: No Meds Allergies/Adverse Reactions: Allergies Allergy/AdvReac Type Severity Reaction Status Date / Time No Known Allergies Allergy Verified 12/25/17 07:49 Physical Exam - Constitutional Appears: Cachectic - Head Exam Head Exam: absent: ATRAUMATIC (scalp laceration on right parietal region closed with marjorie, right kylie-orbital swelling, multiple facial abrasions) - Eye Exam Eye Exam: PERRL. absent: Scleral icterus - ENT Exam ENT Exam: Mucous Membranes Moist - Neck Exam Neck exam: Negative for: Meningismus - Respiratory Exam Respiratory Exam: absent: Rales, Rhonchi, Wheezes, Respiratory Distress - Cardiovascular Exam Cardiovascular Exam: Irregular Rhythm - GI/Abdominal Exam GI & Abdominal Exam: Soft. absent: Tenderness - Rectal Exam Rectal Exam: Deferred - Extremities Exam Extremities exam: Negative for: calf tenderness, pedal edema - Back Exam Back exam: NORMAL INSPECTION - Neurological Exam Neurological exam: Alert, Oriented x3 - Psychiatric Exam Psychiatric exam: Normal Affect - Skin Skin Exam: Dry, Intact Results - Vital Signs Recent Vital Signs: Last Vital Signs Temp 98.5 F 02/23/18 10:17 Pulse 88 02/23/18 10:17 Resp 16 02/23/18 10:17 BP 94/63 L 02/23/18 10:17 Pulse Ox 91 L 02/23/18 13:17 - Labs Result Diagrams: 02/23/18 10:59 02/23/18 10:59 Labs: Laboratory Results - last 24 hr 02/23/18 02/23/18 02/23/18 10:59 10:59 10:59 WBC 6.6 RBC 4.37 L Hgb 14.8 Hct 42.9 MCV 98.4 H MCH 33.9 H MCHC 34.4 RDW 15.0 H Plt Count 191 MPV 7.4 Neut % (Auto) 80.5 H Lymph % (Auto) 10.4 L [place] % (Auto) 8.0 Eos % (Auto) 0.7 Baso % (Auto) 0.4 Neut # (Auto) 5.3 Lymph # (Auto) 0.7 L [place] # (Auto) 0.5 Eos # (Auto) 0.0 Baso # (Auto) 0.0 PT 16.7 H INR 1.5 H APTT 35.2 Sodium 142 Potassium 4.3 Chloride 96 L Carbon Dioxide 34 H Anion Gap 16 BUN 41 H Creatinine 1.4 Est GFR ( Amer) 59 Est GFR (Non-Af Amer) 49 Random Glucose 110 Calcium 9.6 Total Bilirubin 1.7 H AST 30 ALT 23 Alkaline Phosphatase 165 H Troponin I < 0.0120 NT-Pro-B Natriuret Pep 3000 H Total Protein 8.7 H Albumin 4.1 Globulin 4.6 H Albumin/Globulin Ratio 0.9 L Assessment & Plan - Assessment and Plan (Free Text) Assessment: 82 yo male with history of Chronic AFib, Chronic Right Sided Pleural Effusion and CHF felt dizzy and fell on the floor earlier today. He was not sure if he passed out. Patient was alone and did not have any witness. He denied chest pain , SOB, fever or chills. He had ECHO on last admission in Dec, 2017 and was advised to have further cardiac work up but refused. EF was 20-25 with global hypokinesis. 1. Syncope CT scan of head: + only for scalp swelling on right fronto-parietal serial Troponin and EKG cardiology consult with Dr Robledo 2. Chronic AFib rate controlled continue Metoprolol and Eliquis 3. CHF secondary to systolic dysfunction continue Lasix, Aldactone and Metoprolol 4. BPH on Finasteride and Flomax which both caused postural hypotension advised patient to be aware of postural hypotension and be careful when suddenly rising up
[2018-02-23] MEDS ORDERED: Latanoprost 0.005% Opht SOUTION OU SCH (22:00)
[2018-02-24] MEDS: Pantoprazole 40 mg EC Tab PO SCH ×2 (00:20→09:37)
[2018-02-24] MEDS ORDERED: Sodium Chloride 0.9% 1,000 ML IV SCH (00:30)
--- NOTE | 2018-02-24 07:30 | CP.PCM.CON ---
History of Present Illness - History of Present Illness History of Present Illness: 82 yo male with history of Chronic AFib, Chronic Right Sided Pleural Effusion and CHF Bent over and fell on the floor. He denies dizziness,chest pain, SOB, fever or chills. Seems to feel that he did lose consciousness sustained a laceration to his head Perry well prior to the event Admits that during the heat wave this past week he did not take in much fluids and was not eating as he normally would (no appetite) EKG: Atrial fibrillation Troponin: neg BNP: 3000 ECHO 12/2017 Global Hypokinesia EF: 20-25% MR Past Patient History - Infectious Disease Hx of Infectious Diseases: None - Tetanus Immunizations Tetanus Immunization: Unknown - Past Medical History & Family History Past Medical History?: Yes - Past Social History Smoking Status: Never Smoked - CARDIAC Hx Cardiac Disorders: Yes (AFIB) Hx Atrial Fibrillation: Yes Hx Congestive Heart Failure: Yes - PULMONARY Hx Respiratory Disorders: Yes - NEUROLOGICAL Hx Neurological Disorder: No - HEENT Hx HEENT Problems: Yes Hx Glaucoma: Yes - RENAL Hx Chronic Kidney Disease: No - ENDOCRINE/METABOLIC Hx Endocrine Disorders: No - HEMATOLOGICAL/ONCOLOGICAL Hx AIDS: No Hx Human Immunodeficiency Virus (HIV): No - INTEGUMENTARY Hx Dermatological Problems: No - MUSCULOSKELETAL/RHEUMATOLOGICAL Hx Musculoskeletal Disorders: No Hx Falls: Yes - GASTROINTESTINAL Hx Gastrointestinal Disorders: No - GENITOURINARY/GYNECOLOGICAL Hx Genitourinary Disorders: Yes Hx Prostate Problems: Yes - PSYCHIATRIC Hx Psychophysiologic Disorder: No Hx Substance Use: No - SURGICAL HISTORY Hx Appendectomy: Yes - ANESTHESIA Hx Anesthesia: Yes Hx Anesthesia Reactions: No Meds Allergies/Adverse Reactions: Allergies Allergy/AdvReac Type Severity Reaction Status Date / Time No Known Allergies Allergy Verified 12/25/17 07:49 - Medications Medications: Current Medications Apixaban (Eliquis) 2.5 mg PO BID SHAI PRN Reason: Protocol Docusate Sodium (Colace) 100 mg PO BID PRN PRN Reason: Constipation Finasteride (Proscar) 5 mg PO DAILY SHAI Furosemide (Lasix) 40 mg PO BID SHAI Sodium Chloride (Sodium Chloride 0.9%) 1,000 mls @ 75 mls/hr IV .[id number] SHAI Stop: 02/24/18 13:49 Last Admin: 02/24/18 00:42 Dose: 75 mls/hr Latanoprost (Xalatan Opht) 1 drop OU HS [facility] Last Admin: 02/23/18 22:00 Dose: 1 drop Metoprolol Succinate (Toprol Xl) 25 mg PO DAILY [facility] Pantoprazole Sodium (Protonix Ec Tab) 40 mg PO DAILY [facility] Last Admin: 02/24/18 00:20 Dose: 40 mg Tamsulosin HCl (Flomax) 0.8 mg PO DAILY [facility] Timolol Maleate (Timoptic 0.5% Ophth Soln) 1 drop OU DAILY [facility] Physical Exam - Constitutional Appears: Well - Head Exam Additional comments: Sutured laceration to the right parietal scalp - Eye Exam Eye Exam: Periorbital swelling - Respiratory Exam Respiratory Exam: NORMAL BREATHING PATTERN - Cardiovascular Exam Cardiovascular Exam: Irregular Rhythm Results - Vital Signs Recent Vital Signs: Last Vital Signs Temp 98.2 F 02/24/18 02:17 Pulse 106 H 02/24/18 02:17 Resp 18 02/24/18 02:17 BP 95/64 L 02/24/18 02:17 Pulse Ox 98 02/24/18 02:17 - Labs Result Diagrams: 02/24/18 07:01 02/24/18 07:01 Labs: Laboratory Results - last 24 hr 02/23/18 02/23/18 02/23/18 10:59 10:59 10:59 WBC 6.6 RBC 4.37 L Hgb 14.8 Hct 42.9 MCV 98.4 H MCH 33.9 H MCHC 34.4 RDW 15.0 H Plt Count 191 MPV 7.4 Neut % (Auto) 80.5 H Lymph % (Auto) 10.4 L [place] % (Auto) 8.0 Eos % (Auto) 0.7 Baso % (Auto) 0.4 Neut # (Auto) 5.3 Lymph # (Auto) 0.7 L [place] # (Auto) 0.5 Eos # (Auto) 0.0 Baso # (Auto) 0.0 PT 16.7 H INR 1.5 H APTT 35.2 Sodium 142 Potassium 4.3 Chloride 96 L Carbon Dioxide 34 H Anion Gap 16 BUN 41 H Creatinine 1.4 Est GFR ( Amer) 59 Est GFR (Non-Af Amer) 49 Random Glucose 110 Calcium 9.6 Total Bilirubin 1.7 H AST 30 ALT 23 Alkaline Phosphatase 165 H Troponin I < 0.0120 NT-Pro-B Natriuret Pep 3000 H Total Protein 8.7 H Albumin 4.1 Globulin 4.6 H Albumin/Globulin Ratio 0.9 L 02/23/18 18:15 WBC RBC Hgb Hct MCV MCH MCHC RDW Plt Count MPV Neut % (Auto) Lymph % (Auto) [place] % (Auto) Eos % (Auto) Baso % (Auto) Neut # (Auto) Lymph # (Auto) [place] # (Auto) Eos # (Auto) Baso # (Auto) PT INR APTT Sodium Potassium Chloride Carbon Dioxide Anion Gap BUN Creatinine Est GFR ( Amer) Est GFR (Non-Af Amer) Random Glucose Calcium Total Bilirubin AST ALT Alkaline Phosphatase Troponin I < 0.0120 NT-Pro-B Natriuret Pep Total Protein Albumin Globulin Albumin/Globulin Ratio Assessment & Plan (1) Syncope Assessment and Plan: The syncope does not appear to be cardiac in origin ? Dehydration / Vasovagal? Cardiac jerez the pt is cleared for discharge Status: Acute Priority: High (2) Head injury Status: Acute (3) Acute on chronic systolic congestive heart failure Status: Acute Priority: High (4) Pleural effusion Status: Acute (5) Atrial fibrillation Status: Chronic Priority: High
[2018-02-24 08:07] LABS: BASO % 0.3 % (0.0-2.0); EOS # 0.1 K/uL (0.0-0.7); HEMOGLOBIN 14.4 g/dL (12.0-18.0); LYMPH # 0.8 K/uL (1.0-4.3); LYMPH % 14.1 % (20.0-40.0); MEAN CELL VOLUME 99.4 fl (80.0-94.0); MEAN CORPUSCULAR HEMOGLOBIN 33.7 pg (27.0-31.0); MEAN CORPUSCULAR HGB CONC 33.9 g/dL (33.0-37.0); MEAN PLATELET VOLUME 7.5 fl (7.2-11.7); MONO # 0.5 K/uL (0.0-0.8); MONO % 8.1 % (0.0-10.0); NEUT # 4.5 K/uL (1.8-7.0); NEUT % 76.5 % (50.0-75.0); NRBC % 0.2 % (0.0-0.0); RBC 4.27 Mil/uL (4.40-5.90); RED CELL DISTRIBUTION WIDTH 15.1 % (11.5-14.5); WHITE BLOOD COUNT 5.8 K/uL (4.8-10.8)
[2018-02-24] MEDS ORDERED: Pneumococcal 23-Valent Vaccine IM ONE (08:08)
[2018-02-24 08:20] VITALS: O2SAT 96
[2018-02-24 08:38] LABS: BLOOD UREA NITROGEN 34 mg/dl (9-20); CALCIUM 8.8 mg/dL (8.4-10.2); GFR AFRICAN-AMERICAN > 60; GFR NON-AFRICAN AMERICAN > 60
[2018-02-24] MEDS ORDERED: Metoprolol Succinate 25 mg XL Tab PO SCH (09:00)
--- NOTE | 2018-02-24 10:51 | CP.PCM.DIS ---
Provider - Provider Date of Admission: 02/23/18 12:56 Attending physician: Seun Hinds MD Primary care physician: Fady Briscoe MD Consults: Dr Rachna David Time Spent in preparation of Discharge (in minutes): 25 Diagnosis - Discharge Diagnosis (1) Syncope Status: Acute Priority: High Comment: patient stable cardiacwise. 3 sets of Troponin were negative. no further work ups per request from patient (2) Chronic systolic congestive heart failure Status: Chronic Priority: High Comment: will reduce Lasix to 40mg daily instead of BID. resume Aldactone (3) Pleural effusion due to congestive heart failure Status: Chronic Priority: High Comment: stable (4) Atrial fibrillation Status: Chronic Priority: High Comment: rate controlled. continue Metoprolol and Eliquis Hospital Course - Lab Results Lab Results: Most Recent Lab Values WBC 5.8 K/uL (4.8-10.8) 02/24/18 07:01 RBC 4.27 Mil/uL (4.40-5.90) L 02/24/18 07:01 Hgb 14.4 g/dL (12.0-18.0) 02/24/18 07:01 Hct 42.4 % (35.0-51.0) 02/24/18 07:01 MCV 99.4 fl (80.0-94.0) H 02/24/18 07:01 MCH 33.7 pg (27.0-31.0) H 02/24/18 07:01 MCHC 33.9 g/dL (33.0-37.0) 02/24/18 07:01 RDW 15.1 % (11.5-14.5) H 02/24/18 07:01 Plt Count 196 K/uL (130-400) 02/24/18 07:01 MPV 7.5 fl (7.2-11.7) 02/24/18 07:01 Neut % (Auto) 76.5 % (50.0-75.0) H 02/24/18 07:01 Lymph % (Auto) 14.1 % (20.0-40.0) L 02/24/18 07:01 [place] % (Auto) 8.1 % (0.0-10.0) 02/24/18 07:01 Eos % (Auto) 1.0 % (0.0-4.0) 02/24/18 07:01 Baso % (Auto) 0.3 % (0.0-2.0) 02/24/18 07:01 Neut # (Auto) 4.5 K/uL (1.8-7.0) 02/24/18 07:01 Lymph # (Auto) 0.8 K/uL (1.0-4.3) L 02/24/18 07:01 [place] # (Auto) 0.5 K/uL (0.0-0.8) 02/24/18 07:01 Eos # (Auto) 0.1 K/uL (0.0-0.7) 02/24/18 07:01 Baso # (Auto) 0.0 K/uL (0.0-0.2) 02/24/18 07:01 PT 16.7 Seconds (9.8-13.1) H 02/23/18 10:59 INR 1.5 (0.9-1.2) H 02/23/18 10:59 APTT 35.2 Seconds (25.6-37.1) 02/23/18 10:59 Sodium 141 mmol/l (132-148) 02/24/18 07:01 Potassium 3.8 MMOL/L (3.6-5.0) 02/24/18 07:01 Chloride 101 mmol/L (98-107) 02/24/18 07:01 Carbon Dioxide 27 mmol/L (22-30) 02/24/18 07:01 Anion Gap 17 (10-20) 02/24/18 07:01 BUN 34 mg/dl (9-20) H 02/24/18 07:01 Creatinine 1.1 mg/dl (0.8-1.5) 02/24/18 07:01 Est GFR ( Amer) > 60 02/24/18 07:01 Est GFR (Non-Af Amer) > 60 02/24/18 07:01 Random Glucose 85 mg/dL (75-110) 02/24/18 07:01 Calcium 8.8 mg/dL (8.4-10.2) 02/24/18 07:01 Total Bilirubin 1.7 mg/dl (0.2-1.3) H 02/23/18 10:59 AST 30 U/L (17-59) 02/23/18 10:59 ALT 23 U/L (21-72) 02/23/18 10:59 Alkaline Phosphatase 165 U/L (38-126) H 02/23/18 10:59 Troponin I < 0.0120 ng/mL (0.00-0.120) 02/24/18 07:01 NT-Pro-B Natriuret Pep 3000 pg/ml (0-900) H 02/23/18 10:59 Total Protein 8.7 G/DL (6.3-8.2) H 02/23/18 10:59 Albumin 4.1 g/dL (3.5-5.0) 02/23/18 10:59 Globulin 4.6 gm/dL (2.2-3.9) H 02/23/18 10:59 Albumin/Globulin Ratio 0.9 (1.0-2.1) L 02/23/18 10:59 - Hospital Course Hospital Course: 82 yo male with history of Chronic AFib, Chronic Right Sided Pleural Effusion and CHF felt dizzy and fell on the floor. Not sure if he passed out. Sustained scalp laceration on right parietal which was closed in the ER with marjorie. CT scan of the head was negative for bleeding or edema but noted right parietal scalp swelling. Patient was put on observation and monitored in telemetry. Troponins were negative for ischemic events. Although he had been having low BP , patient denied any recurrence of dizziness on getting up and ambulating to the bathroom. Patient refused further work up and was discharged in stable condition. He was advised to see Dr Briscoe the next day for follow up. Discharge Exam - Head Exam Head Exam: absent: ATRAUMATIC (scalp laceration on right parietal region closed with marjorie, right kylie-orbital swelling, multiple facial abrasions) - Eye Exam Eye Exam: absent: Scleral icterus - ENT Exam ENT Exam: Mucous Membranes Moist - Respiratory Exam Respiratory Exam: absent: Rales, Rhonchi, Wheezes, Respiratory Distress - Cardiovascular Exam Cardiovascular Exam: REGULAR RHYTHM, +S1, +S2 - GI/Abdominal Exam GI & Abdominal Exam: Soft. absent: Tenderness - Rectal Exam Rectal Exam: Deferred - Neurological Exam Neurological exam: Alert, Oriented x3 - Psychiatric Exam Psychiatric exam: Normal Affect - Skin Skin Exam: Dry, Intact Discharge Plan - Follow Up Plan Condition: FAIR Disposition: HOME/ ROUTINE
[2018-02-24 12:53] VITALS: BP 85/54; PULSE 82; RESP 20; TEMP 97.3
--- NOTE | 2018-02-25 10:08 | CARD ---
APPROVED REPORT EKG Measurement Heart [id number] <Conclusion> Atrial fibrillation with rapid ventricular response Incomplete right bundle branch block Abnormal ECG
== END 2018-02-24 13:40 | disposition home or self-care (01) ==
LOC: H.ER 10:07 → H.ERHOLD 12:56 → H.TEL 15:32
DX: R55 Syncope and collapse (principal); I48.2 Chronic atrial fibrillation; Z23 Encounter for immunization; I50.22 Chronic systolic (congestive) heart failure; N40.1 Benign prostatic hyperplasia with lower urinary tract symptoms; S01.01XA Laceration without foreign body of scalp, initial encounter; W01.0XXA Fall on same level from slipping, tripping and stumbling without subsequent striking against object, initial encounter; N13.8 Other obstructive and reflux uropathy; S00.211A Abrasion of right eyelid and periocular area, initial encounter
CPT/HCPCS: 12001; 36415; 70450; 71045; 80048; 80053; 83880; 84484; 85025; 85610; 85730; 90471; 90715; 90732; 99285; G0009; G0378; J7030

== ENCOUNTER 2018-03-15 14:44 | Inpatient (IN) | payer MEDICARE ==
[2018-03-15 14:44] VITALS: BMI 17.4
[2018-03-15] MEDS ORDERED: Sodium Chloride 0.9% 1,000 ML IV STA (15:20)
--- NOTE | 2018-03-15 15:27 | ED PDOC ---
Syncope/Near Syncope/Dizziness Time Seen by Provider: 03/15/18 15:23 Chief Complaint (Nursing): Syncope History Per: Patient (this is an 82 yo male with h/o atrial fibrillation and pleural effusion/CHF who is brought by EMS after he found himself on the floor of his bathroom. It happened today after he had climbed one flight of stairs in his home. He called his brother on the cell phone after he realized that he had fallen. He does not recall the event of falling itself. He denies chest pain, headache. His younger brother who is here said that he had passed out in the past two weeks. He states that he has been feeling lightheaded for the past two months.), Family History/Exam Limitations: no limitations Onset/Duration Of Symptoms: Sudden Onset Past Medical History Reviewed: Historical Data, Nursing Documentation, Vital Signs Vital Signs: Last Vital Signs Temp 97.2 F L 03/15/18 14:46 Pulse 108 H 03/15/18 14:46 Resp 18 03/15/18 14:46 BP 80/53 L 03/15/18 14:46 Pulse Ox 99 03/15/18 14:46 - Medical History PMH: Atrial Fibrillation, Benign Prostatic Hyperplasia, CHF, Peripheral Edema Denies: HIV, Chronic Kidney Disease - Surgical History Surgical History: Appendectomy - Family History Family History: States: No Known Family Hx - Living Arrangements Living Arrangements: With Family - Social History Current smoker - smoking cessation education provided: No Alcohol: None - Immunization History Hx Tetanus Toxoid Vaccination: No (not sure) - Home Medications Home Medications: Ambulatory Orders Medication Instructions Recorded Apixaban [Eliquis] 2.5 mg PO Q12 12/25/17 Finasteride [Proscar] 5 mg PO DAILY 12/25/17 Metoprolol Succinate [Toprol Xl] 25 mg PO DAILY 12/25/17 Latanoprost 0.005% Opht [Xalatan 1 drop BOTHEYES HS 02/23/18 Opht] Spironolactone [Aldactone] 25 mg PO BID 02/23/18 Tamsulosin [Flomax] 0.8 mg PO DAILY 02/23/18 Furosemide [Lasix] 40 mg PO BID 03/15/18 Timolol 0.5% Ophth [Timoptic 0.5% 1 drop EACHEYE DAILY 03/15/18 Ophth Soln] - Allergies Allergies/Adverse Reactions: Allergies Allergy/AdvReac Type Severity Reaction Status Date / Time No Known Allergies Allergy Verified 12/25/17 07:49 Review of Systems ROS Statement: Except As Marked, All Systems Reviewed And Found Negative Constitutional: Negative for: Fever Cardiovascular: Negative for: Chest Pain Respiratory: Negative for: Cough, Shortness of Breath Gastrointestinal: Negative for: Nausea, Vomiting Genitourinary Male: Negative for: Dysuria Musculoskeletal: Negative for: Neck Pain Neurological: Negative for: Change in Speech, Confusion, Altered Mental Status, Headache Physical Exam - Reviewed Nursing Documentation Reviewed: Yes Vital Signs Reviewed: Yes - Physical Exam Appears: Positive for: Well, Non-toxic, No Acute Distress Head Exam: Positive for: ATRAUMATIC, NORMAL INSPECTION, NORMOCEPHALIC Skin: Positive for: Normal Color (V shaped laceration just above the left eyebrow.) Eye Exam: Positive for: Normal appearance, EOMI, PERRL ENT: Positive for: Normal ENT Inspection, TM Is/Are. Negative for: Nasal Congestion Neck: Positive for: Normal, Painless ROM, Supple. Negative for: Decreased ROM Cardiovascular/Chest: Positive for: Regular Rate, Rhythm Respiratory: Positive for: CNT, Normal Breath Sounds Gastrointestinal/Abdominal: Positive for: Normal Exam, Soft Back: Positive for: Normal Inspection Extremity: Positive for: Normal ROM Neurologic/Psych: Positive for: Alert, Oriented - Laboratory Results Result Diagrams: 03/15/18 15:30 03/15/18 15:30 - ECG O2 Sat by Pulse Oximetry: 99 Procedures - Laceration/Wound Repair Frontal Wound's Depth, Shape: stellate, contused tissue Wound Explored: no foreign body removed Betadine Prep?: Yes Anesthesia: Lidocaine w/ Epi Volume Anesthetic (ccs): 4 Wound Repaired With: Sutures Suture Size/Type: 5:0, proline Number of Sutures: 4 Layer Closure?: No Wound Complexity: Intermediate Sterile Dressing Applied?: Yes Splint Applied?: No Sling Applied?: No Disposition - Clinical Impression Clinical Impression: Syncope and collapse, Laceration, Atrial fibrillation - Patient ED Disposition Is Patient to be Admitted: Yes Doctor Will See Patient In The: Hospital - Disposition Disposition: Transfer of Care Disposition Time: 18:30 Condition: GUARDED - Pt Status Changed To: Hospital Disposition Of: Inpatient - Admit Certification Admit to Inpatient:: After my assessment, the patient will require hospitalization for at least two midnights. This is because of the severity of symptoms shown, intensity of services needed, and/or the medical risk in this patient being treated as an outpatient. - POA Present On Arrival: Falls Or Trauma
[2018-03-15] MEDS ORDERED: Lidocaine/Epi 1% 1:100000 20 ML IJ STA (15:28)
[2018-03-15 15:41] LABS: BASO % 0.1 % (0.0-2.0); EOS % 0.3 % (0.0-4.0); HEMOGLOBIN 15.6 g/dL (12.0-18.0); LYMPH # 0.7 K/uL (1.0-4.3); LYMPH % 9.3 % (20.0-40.0); MEAN CELL VOLUME 99.7 fl (80.0-94.0); MEAN CORPUSCULAR HEMOGLOBIN 33.9 pg (27.0-31.0); MEAN CORPUSCULAR HGB CONC 34.1 g/dL (33.0-37.0); MEAN PLATELET VOLUME 7.5 fl (7.2-11.7); MONO # 0.7 K/uL (0.0-0.8); MONO % 9.5 % (0.0-10.0); NEUT # 5.8 K/uL (1.8-7.0); NEUT % 80.8 % (50.0-75.0); NRBC % 0.1 % (0.0-0.0); PLATELET COUNT 190 K/uL (130-400); RBC 4.58 Mil/uL (4.40-5.90); RED CELL DISTRIBUTION WIDTH 15.1 % (11.5-14.5); WHITE BLOOD COUNT 7.2 K/uL (4.8-10.8)
[2018-03-15 16:01] LABS: VENOUS BLOOD GAS BASE EXCESS 5.9 mmol/L (0.0-2.0); VENOUS BLOOD GAS PCO2 61 mmHg (40-60); VENOUS BLOOD GAS PO2 16 mm/Hg (30-55); VENOUS BLOOD PH 7.35 (7.32-7.43)
[2018-03-15] MEDS ORDERED: Lidocaine 1% w Epi 1:100,000 Inj ONE (16:02)
--- NOTE | 2018-03-15 16:03 | CT ---
Date of service: 03/15/2018 PROCEDURE: CT HEAD WITHOUT CONTRAST. HISTORY: syncope COMPARISON: Noncontrast head CT 02/23/2018. TECHNIQUE: Axial computed tomography images were obtained through the head/brain without intravenous contrast. Radiation dose: Total exam DLP = 899.43 mGy-cm. This CT exam was performed using one or more of the following dose reduction techniques: Automated exposure control, adjustment of the mA and/or kV according to patient size, and/or use of iterative reconstruction technique. FINDINGS: HEMORRHAGE: No intracranial hemorrhage. 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 There is no mass effect or interval cortical edema identified. Posterior fossa contents remain stable and unremarkable with dense calcification at the anterior falx again evident. VENTRICLES: Unremarkable. No hydrocephalus. CALVARIUM: No destructive bony lesion or displaced fracture identified including through the skullbase. PARANASAL SINUSES: Unremarkable as visualized. No significant inflammatory changes. MASTOID AIR CELLS: Unremarkable as visualized. No inflammatory changes. OTHER FINDINGS: None. 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
[2018-03-15 16:04] LABS: INR 1.6 (0.9-1.2); PARTIAL THROMBOPLASTIN TIME 32.8 Seconds (25.6-37.1); PROTHROMBIN TIME 17.4 Seconds (9.8-13.1)
[2018-03-15 16:09] LABS: ALB/GLOB RATIO 0.9 (1.0-2.1); ALBUMIN 4.2 g/dL (3.5-5.0); ALT/SGPT 38 U/L (21-72); AST/SGOT 45 U/L (17-59); BLOOD UREA NITROGEN 54 mg/dl (9-20); CALCIUM 9.2 mg/dL (8.4-10.2); GFR AFRICAN-AMERICAN 59; GFR NON-AFRICAN AMERICAN 49
--- NOTE | 2018-03-15 16:09 | RAD ---
Date of service: 03/15/2018 PROCEDURE: CHEST RADIOGRAPH, 1 VIEW HISTORY: syncope COMPARISON: 02/23/2018. FINDINGS: LUNGS: Stable consolidative changes affecting right lower lobe and right middle lobe. PLEURA: Stable large right pleural effusion. CARDIOVASCULAR: No radiographic findings to suggest acute or significant cardiovascular disease. OSSEOUS STRUCTURES: No significant abnormalities. VISUALIZED UPPER ABDOMEN: Normal. OTHER FINDINGS: None. IMPRESSION: No significant interval change compared to the prior examination(s).
[2018-03-15 17:24] LABS: BANDS 4 % (0-2); LYMPHOCYTE 15 % (20-50); MONOCYTE 8 % (0-10); NEUTROPHIL 73 % (42-75); TOTAL CELLS COUNTED 100
[2018-03-15 17:25] LABS: PLATELET ESTIMATE NORMAL (NORMAL)
[2018-03-15 17:26] LABS: TOXIC GRANULATION PRESENT
--- NOTE | 2018-03-15 18:28 | CP.PCM.HP ---
History of Present Illness - History of Present Illness History of Present Illness: 82 yo male with history of Chronic AFib, Chronic Right Sided Pleural effusion and CHF brought by EMS after he fell on the floor beside the bathroom. Not sure if he lost consciousness. Patient was recently discharged about 2 weeks ago because of LOC. Pacemaker was offered but patient refused. ECHO last December showed EF of 20-25% with global hypokinesia. Patient denied chest pain or SOB. Present on Admission - Present on Admission Any Indicators Present on Admission: No History of DVT/PE: No History of Uncontrolled Diabetes: No Urinary Catheter: No Decubitus Ulcer Present: No Review of Systems - Review of Systems All systems: reviewed and no additional remarkable complaints except (aside from those mentioned above, 12 point system review were negative by me) Past Patient History - Infectious Disease Hx of Infectious Diseases: None - Tetanus Immunizations Tetanus Immunization: Unknown - Past Medical History & Family History Past Medical History?: Yes - Past Social History Smoking Status: Never Smoked Chewing Tobacco Use: No Cigar Use: No Alcohol: None - CARDIAC Hx Atrial Fibrillation: Yes Hx Congestive Heart Failure: Yes Hx Peripheral Edema: Yes - PULMONARY Hx Respiratory Disorders: Yes - NEUROLOGICAL Hx Neurological Disorder: No - HEENT Hx HEENT Problems: Yes Hx Glaucoma: Yes - RENAL Hx Chronic Kidney Disease: No - ENDOCRINE/METABOLIC Hx Endocrine Disorders: No - HEMATOLOGICAL/ONCOLOGICAL Hx Human Immunodeficiency Virus (HIV): No - INTEGUMENTARY Hx Dermatological Problems: No - MUSCULOSKELETAL/RHEUMATOLOGICAL Hx Musculoskeletal Disorders: No Hx Falls: Yes - GASTROINTESTINAL Hx Gastrointestinal Disorders: No - GENITOURINARY/GYNECOLOGICAL Hx Genitourinary Disorders: Yes Hx Prostate Problems: Yes - PSYCHIATRIC Hx Psychophysiologic Disorder: No Hx Substance Use: No - SURGICAL HISTORY Hx Appendectomy: Yes - ANESTHESIA Hx Anesthesia: Yes Hx Anesthesia Reactions: No Meds Allergies/Adverse Reactions: Allergies Allergy/AdvReac Type Severity Reaction Status Date / Time No Known Allergies Allergy Verified 12/25/17 07:49 Physical Exam - Constitutional Appears: No Acute Distress, Cachectic - Head Exam Head Exam: absent: ATRAUMATIC (V shaped laceration on forehead with nasal abrasions) - Eye Exam Eye Exam: PERRL. absent: Scleral icterus - ENT Exam ENT Exam: Mucous Membranes Moist - Neck Exam Neck exam: Negative for: Meningismus - Respiratory Exam Respiratory Exam: absent: Rales, Rhonchi, Wheezes, Respiratory Distress - Cardiovascular Exam Cardiovascular Exam: Irregular Rhythm - GI/Abdominal Exam GI & Abdominal Exam: Soft. absent: Tenderness - Rectal Exam Rectal Exam: Deferred - Back Exam Back exam: absent: tenderness - Neurological Exam Neurological exam: Alert, Oriented x3 - Psychiatric Exam Psychiatric exam: Normal Affect - Skin Skin Exam: Dry, Intact Results - Vital Signs Recent Vital Signs: Last Vital Signs Temp 97.2 F L 03/15/18 14:46 Pulse 62 03/15/18 15:36 Resp 16 03/15/18 15:36 BP 96/68 L 03/15/18 15:36 Pulse Ox 99 03/15/18 15:49 - Labs Result Diagrams: 03/15/18 15:30 03/15/18 15:30 Labs: Laboratory Results - last 24 hr 03/15/18 03/15/18 03/15/18 15:25 15:30 15:30 WBC 7.2 RBC 4.58 Hgb 15.6 Hct 45.7 MCV 99.7 H MCH 33.9 H MCHC 34.1 RDW 15.1 H Plt Count 190 MPV 7.5 Neut % (Auto) 80.8 H Lymph % (Auto) 9.3 L [place] % (Auto) 9.5 Eos % (Auto) 0.3 Baso % (Auto) 0.1 Neut # (Auto) 5.8 Lymph # (Auto) 0.7 L [place] # (Auto) 0.7 Eos # (Auto) 0.0 Baso # (Auto) 0.0 Neutrophils % (Manual) 73 Band Neutrophils % 4 H Lymphocytes % (Manual) 15 L Monocytes % (Manual) 8 Toxic Granulation Present Platelet Estimate Normal Macrocytosis (manual) Slight PT INR APTT pO2 VBG pH VBG pCO2 VBG HCO3 VBG Total CO2 VBG O2 Sat (Calc) VBG Base Excess VBG Potassium Glucose Lactate FiO2 Sodium 136 Potassium 5.1 H Chloride 96 L Carbon Dioxide 27 Anion Gap 18 BUN 54 H Creatinine 1.4 Est GFR ( Amer) 59 Est GFR (Non-Af Amer) 49 POC Glucose (mg/dL) 136 H Random Glucose 107 Calcium 9.2 Total Bilirubin 1.7 H AST 45 ALT 38 Alkaline Phosphatase 156 H Troponin I < 0.0120 Total Protein 9.0 H Albumin 4.2 Globulin 4.8 H Albumin/Globulin Ratio 0.9 L Venous Blood Potassium 03/15/18 03/15/18 15:30 15:52 WBC RBC Hgb Hct MCV MCH MCHC RDW Plt Count MPV Neut % (Auto) Lymph % (Auto) [place] % (Auto) Eos % (Auto) Baso % (Auto) Neut # (Auto) Lymph # (Auto) [place] # (Auto) Eos # (Auto) Baso # (Auto) Neutrophils % (Manual) Band Neutrophils % Lymphocytes % (Manual) Monocytes % (Manual) Toxic Granulation Platelet Estimate Macrocytosis (manual) PT 17.4 H INR 1.6 H APTT 32.8 pO2 16 L VBG pH 7.35 VBG pCO2 61 H VBG HCO3 27.1 VBG Total CO2 35.6 H VBG O2 Sat (Calc) 17.9 L VBG Base Excess 5.9 H VBG Potassium 4.6 Glucose 100 Lactate 1.4 FiO2 21.0 Sodium 135.0 Potassium Chloride 99.0 Carbon Dioxide Anion Gap BUN Creatinine Est GFR ( Amer) Est GFR (Non-Af Amer) POC Glucose (mg/dL) Random Glucose Calcium Total Bilirubin AST ALT Alkaline Phosphatase Troponin I Total Protein Albumin Globulin Albumin/Globulin Ratio Venous Blood Potassium 4.6 Assessment & Plan - Assessment and Plan (Free Text) Assessment: 82 yo male with history of Chronic AFib, Chronic Right Sided Pleural effusion and CHF brought by EMS after he fell on the floor beside the bathroom. Not sure if he lost consciousness. Patient was recently discharged about 2 weeks ago because of LOC. Pacemaker was offered but patient refused. ECHO last December showed EF of 20-25% with global hypokinesia. Patient denied chest pain or SOB. 1. Syncope CT scan of head: no intracerebral bleed serial Troponin and EKG cardiology consult with Dr David 2. Chronic AFib rate controlled on Metoprolol and Eliquis 3. CHF secondary to systolic dysfunction continue Lasix, Aldactone and Metoprolol 4. BPH on Finasteride and Flomax which both can cause postural hypotension advised patient to be aware of postural hypotension and be careful when suddenly rising up
[2018-03-15] MEDS: Latanoprost 0.005% Opht SOUTION OU SCH (22:50)
[2018-03-16 07:21] LABS: BASO % 0.4 % (0.0-2.0); EOS % 0.6 % (0.0-4.0); HEMOGLOBIN 15.2 g/dL (12.0-18.0); LYMPH # 0.9 K/uL (1.0-4.3); LYMPH % 11.8 % (20.0-40.0); MEAN CELL VOLUME 98.9 fl (80.0-94.0); MEAN CORPUSCULAR HEMOGLOBIN 33.6 pg (27.0-31.0); MEAN PLATELET VOLUME 7.5 fl (7.2-11.7); MONO # 0.7 K/uL (0.0-0.8); MONO % 9.5 % (0.0-10.0); NEUT # 5.8 K/uL (1.8-7.0); NEUT % 77.7 % (50.0-75.0); NRBC % 0.1 % (0.0-0.0); RBC 4.51 Mil/uL (4.40-5.90); RED CELL DISTRIBUTION WIDTH 15.3 % (11.5-14.5); WHITE BLOOD COUNT 7.5 K/uL (4.8-10.8)
[2018-03-16 07:53] LABS: BLOOD UREA NITROGEN 39 mg/dl (9-20); GFR AFRICAN-AMERICAN > 60; GFR NON-AFRICAN AMERICAN > 60
[2018-03-16] MEDS: Pantoprazole 40 mg EC Tab PO SCH (09:28)
[2018-03-16] MEDS: Metoprolol Succinate 25 mg XL Tab PO SCH (09:29)
--- NOTE | 2018-03-16 11:52 | CP.PCM.CON ---
History of Present Illness - History of Present Illness History of Present Illness: This 82-year- old man who has had a history of atrial fibrillation which is being treated with beta-blockade for rate control along with Diuretics for management of congestive cardiac failure, has come to the hospital having fainted at home after going up a flight of stairs to go to the bathroom. The patient has had 4 falls at home since December of this year. He denies any history of smoking or prior lung disease. The patient denies any history of hypertension or diabetes or myocardial infarction. The patient also has been taking tamsulosin forBPH. Physical examination shows an elderly thin built man who is reading comfortably while lying virtually flat in bed. His shows engine monitor shows atrial fibrillation at moderate heart rates with a heart rate between 70 and 80 bpm. His systolic blood pressure while lying down in bed was 84 mmHg and upon standing up was 62 mmHg. The patient does admit to having felt lightheaded every time he stands up from sitting down. He denies having seen any further swelling in his legs that he used to see 4 months back. He also reports breathing much comfortably as compared to 4 months back when he started taking diuretics. His oximetries were warm and nailbeds were pink. His mentation was clear. There was no edema over his lower extremities. The jugular venous pressure was mildly elevated. The apex was in the sixth space slightly heaving in character the first heart sound was normal the second heart sound was slightly muffled. The air entry was slightly reduced at the right base. There were no rales. His abdomen was soft and liver and spleen are not palpable. His electric cardiogram showed atrial fibrillation no Q waves were detected on his cardiogram. The QRS duration was 94 ms but there was a terminal R wave in V1 indicating enlarged right ventricle. Echocardiogram confirmed an enlarged right ventricle and a markedly dilated right atrium with severe tricuspid regurgitation. The chest x-ray was noted. Impression: Syncopal episode in the patient with marked hypotension probably secondary to aggressive dialytic therapy along with tamsulosin being taken for BPH. Having received IV fluids his BUN/creatinine is much improved overnight indicating significant intravascular volume contraction. There was also hyperkalemia due to Aldactone use. I have discussed the issue of right ventricular failure with Dr. Briscoe and he may need further workup to resolve this issue. I started the patient on intravenous fluids in an attempt to resolve dehydration. Past Patient History - Infectious Disease Hx of Infectious Diseases: None - Tetanus Immunizations Tetanus Immunization: Unknown - Past Medical History & Family History Past Medical History?: Yes - Past Social History Alcohol: None - CARDIAC Hx Atrial Fibrillation: Yes Hx Congestive Heart Failure: Yes Hx Peripheral Edema: Yes - PULMONARY Hx Respiratory Disorders: Yes - NEUROLOGICAL Hx Neurological Disorder: No - HEENT Hx HEENT Problems: Yes Hx Glaucoma: Yes - RENAL Hx Chronic Kidney Disease: No - ENDOCRINE/METABOLIC Hx Endocrine Disorders: No - HEMATOLOGICAL/ONCOLOGICAL Hx Human Immunodeficiency Virus (HIV): No - INTEGUMENTARY Hx Dermatological Problems: No - MUSCULOSKELETAL/RHEUMATOLOGICAL Hx Musculoskeletal Disorders: No Hx Falls: Yes - GASTROINTESTINAL Hx Gastrointestinal Disorders: No - GENITOURINARY/GYNECOLOGICAL Hx Genitourinary Disorders: Yes Hx Prostate Problems: Yes - PSYCHIATRIC Hx Psychophysiologic Disorder: No Hx Substance Use: No - SURGICAL HISTORY Hx Appendectomy: Yes - ANESTHESIA Hx Anesthesia: Yes Hx Anesthesia Reactions: No Meds Allergies/Adverse Reactions: Allergies Allergy/AdvReac Type Severity Reaction Status Date / Time No Known Allergies Allergy Verified 12/25/17 07:49 - Medications Medications: Current Medications Finasteride (Proscar) 5 mg PO DAILY [facility] Last Admin: 03/16/18 09:28 Dose: 5 mg Sodium Chloride (Sodium Chloride 0.9%) 1,000 mls @ 100 mls/hr IV .Q10H [facility] Stop: 03/17/18 11:28 Latanoprost (Xalatan Opht) 1 drop OU HS [facility] Last Admin: 03/15/18 22:50 Dose: 1 drop Metoprolol Succinate (Toprol Xl) 25 mg PO DAILY [facility] Last Admin: 03/16/18 09:29 Dose: 25 mg Pantoprazole Sodium (Protonix Ec Tab) 40 mg PO DAILY [facility] Last Admin: 03/16/18 09:28 Dose: 40 mg Tamsulosin HCl (Flomax) 0.4 mg PO DAILY [facility] Timolol Maleate (Timoptic 0.5% Oph Soln) 1 drop OU DAILY [facility] Last Admin: 03/16/18 09:30 Dose: 1 drop Results - Vital Signs Recent Vital Signs: Last Vital Signs Temp 97.3 F L 03/16/18 08:53 Pulse 70 03/16/18 09:29 Resp 16 03/16/18 08:53 BP 107/74 03/16/18 09:29 Pulse Ox 97 03/16/18 08:53 - Labs Result Diagrams: 03/16/18 05:20 03/16/18 05:20 Labs: Laboratory Results - last 24 hr 03/15/18 03/15/18 03/15/18 15:25 15:30 15:30 WBC 7.2 RBC 4.58 Hgb 15.6 Hct 45.7 MCV 99.7 H MCH 33.9 H MCHC 34.1 RDW 15.1 H Plt Count 190 MPV 7.5 Neut % (Auto) 80.8 H Lymph % (Auto) 9.3 L [place] % (Auto) 9.5 Eos % (Auto) 0.3 Baso % (Auto) 0.1 Neut # (Auto) 5.8 Lymph # (Auto) 0.7 L [place] # (Auto) 0.7 Eos # (Auto) 0.0 Baso # (Auto) 0.0 Neutrophils % (Manual) 73 Band Neutrophils % 4 H Lymphocytes % (Manual) 15 L Monocytes % (Manual) 8 Toxic Granulation Present Platelet Estimate Normal Macrocytosis (manual) Slight PT INR APTT pO2 VBG pH VBG pCO2 VBG HCO3 VBG Total CO2 VBG O2 Sat (Calc) VBG Base Excess VBG Potassium Glucose Lactate FiO2 Sodium 136 Potassium 5.1 H Chloride 96 L Carbon Dioxide 27 Anion Gap 18 BUN 54 H Creatinine 1.4 Est GFR ( Amer) 59 Est GFR (Non-Af Amer) 49 POC Glucose (mg/dL) 136 H Random Glucose 107 Calcium 9.2 Total Bilirubin 1.7 H AST 45 ALT 38 Alkaline Phosphatase 156 H Troponin I < 0.0120 Total Protein 9.0 H Albumin 4.2 Globulin 4.8 H Albumin/Globulin Ratio 0.9 L Venous Blood Potassium 03/15/18 03/15/18 03/15/18 15:30 15:52 23:12 WBC RBC Hgb Hct MCV MCH MCHC RDW Plt Count MPV Neut % (Auto) Lymph % (Auto) [place] % (Auto) Eos % (Auto) Baso % (Auto) Neut # (Auto) Lymph # (Auto) [place] # (Auto) Eos # (Auto) Baso # (Auto) Neutrophils % (Manual) Band Neutrophils % Lymphocytes % (Manual) Monocytes % (Manual) Toxic Granulation Platelet Estimate Macrocytosis (manual) PT 17.4 H INR 1.6 H APTT 32.8 pO2 16 L VBG pH 7.35 VBG pCO2 61 H VBG HCO3 27.1 VBG Total CO2 35.6 H VBG O2 Sat (Calc) 17.9 L VBG Base Excess 5.9 H VBG Potassium 4.6 Glucose 100 Lactate 1.4 FiO2 21.0 Sodium 135.0 Potassium Chloride 99.0 Carbon Dioxide Anion Gap BUN Creatinine Est GFR ( Amer) Est GFR (Non-Af Amer) POC Glucose (mg/dL) Random Glucose Calcium Total Bilirubin AST ALT Alkaline Phosphatase Troponin I < 0.0120 Total Protein Albumin Globulin Albumin/Globulin Ratio Venous Blood Potassium 4.6 03/16/18 03/16/18 03/16/18 05:20 05:20 05:20 WBC 7.5 RBC 4.51 Hgb 15.2 Hct 44.6 MCV 98.9 H MCH 33.6 H MCHC 34.0 RDW 15.3 H Plt Count 185 MPV 7.5 Neut % (Auto) 77.7 H Lymph % (Auto) 11.8 L [place] % (Auto) 9.5 Eos % (Auto) 0.6 Baso % (Auto) 0.4 Neut # (Auto) 5.8 Lymph # (Auto) 0.9 L [place] # (Auto) 0.7 Eos # (Auto) 0.0 Baso # (Auto) 0.0 Neutrophils % (Manual) Band Neutrophils % Lymphocytes % (Manual) Monocytes % (Manual) Toxic Granulation Platelet Estimate Macrocytosis (manual) PT INR APTT pO2 VBG pH VBG pCO2 VBG HCO3 VBG Total CO2 VBG O2 Sat (Calc) VBG Base Excess VBG Potassium Glucose Lactate FiO2 Sodium 138 Potassium 5.1 H Chloride 101 Carbon Dioxide 28 Anion Gap 14 BUN 39 H Creatinine 1.1 Est GFR ( Amer) > 60 Est GFR (Non-Af Amer) > 60 POC Glucose (mg/dL) Random Glucose 88 Calcium 9.0 Total Bilirubin AST ALT Alkaline Phosphatase Troponin I < 0.0120 Total Protein Albumin Globulin Albumin/Globulin Ratio Venous Blood Potassium
[2018-03-16] MEDS: Sodium Chloride 0.9% 1,000 ML IV SCH ×2 (12:06→21:39)
--- NOTE | 2018-03-16 13:31 | CP.PCM.CON ---
Past Patient History - Infectious Disease Hx of Infectious Diseases: None - Tetanus Immunizations Tetanus Immunization: Unknown - Past Medical History & Family History Past Medical History?: Yes - Past Social History Alcohol: None - CARDIAC Hx Atrial Fibrillation: Yes Hx Congestive Heart Failure: Yes Hx Peripheral Edema: Yes - PULMONARY Hx Respiratory Disorders: Yes - NEUROLOGICAL Hx Neurological Disorder: No - HEENT Hx HEENT Problems: Yes Hx Glaucoma: Yes - RENAL Hx Chronic Kidney Disease: No - ENDOCRINE/METABOLIC Hx Endocrine Disorders: No - HEMATOLOGICAL/ONCOLOGICAL Hx Human Immunodeficiency Virus (HIV): No - INTEGUMENTARY Hx Dermatological Problems: No - MUSCULOSKELETAL/RHEUMATOLOGICAL Hx Musculoskeletal Disorders: No Hx Falls: Yes - GASTROINTESTINAL Hx Gastrointestinal Disorders: No - GENITOURINARY/GYNECOLOGICAL Hx Genitourinary Disorders: Yes Hx Prostate Problems: Yes - PSYCHIATRIC Hx Psychophysiologic Disorder: No Hx Substance Use: No - SURGICAL HISTORY Hx Appendectomy: Yes - ANESTHESIA Hx Anesthesia: Yes Hx Anesthesia Reactions: No Meds Allergies/Adverse Reactions: Allergies Allergy/AdvReac Type Severity Reaction Status Date / Time No Known Allergies Allergy Verified 12/25/17 07:49 - Medications Medications: Current Medications Finasteride (Proscar) 5 mg PO DAILY [facility] Last Admin: 03/16/18 09:28 Dose: 5 mg Sodium Chloride (Sodium Chloride 0.9%) 1,000 mls @ 100 mls/hr IV .Q10H [facility] Stop: 03/17/18 11:28 Last Admin: 03/16/18 12:06 Dose: 100 mls/hr Latanoprost (Xalatan Opht) 1 drop OU HS [facility] Last Admin: 03/15/18 22:50 Dose: 1 drop Metoprolol Succinate (Toprol Xl) 25 mg PO DAILY [facility] Last Admin: 03/16/18 09:29 Dose: 25 mg Pantoprazole Sodium (Protonix Ec Tab) 40 mg PO DAILY [facility] Last Admin: 03/16/18 09:28 Dose: 40 mg Tamsulosin HCl (Flomax) 0.4 mg PO DAILY [facility] Timolol Maleate (Timoptic 0.5% Ophth Soln) 1 drop OU DAILY [facility] Last Admin: 03/16/18 09:30 Dose: 1 drop Results - Vital Signs Recent Vital Signs: Last Vital Signs Temp 97.3 F L 03/16/18 08:53 Pulse 70 03/16/18 09:29 Resp 16 03/16/18 08:53 BP 107/74 03/16/18 09:29 Pulse Ox 97 03/16/18 08:53 - Labs Result Diagrams: 03/16/18 05:20 03/16/18 05:20 Labs: Laboratory Results - last 24 hr 03/15/18 03/15/18 03/15/18 15:25 15:30 15:30 WBC 7.2 RBC 4.58 Hgb 15.6 Hct 45.7 MCV 99.7 H MCH 33.9 H MCHC 34.1 RDW 15.1 H Plt Count 190 MPV 7.5 Neut % (Auto) 80.8 H Lymph % (Auto) 9.3 L [place] % (Auto) 9.5 Eos % (Auto) 0.3 Baso % (Auto) 0.1 Neut # (Auto) 5.8 Lymph # (Auto) 0.7 L [place] # (Auto) 0.7 Eos # (Auto) 0.0 Baso # (Auto) 0.0 Neutrophils % (Manual) 73 Band Neutrophils % 4 H Lymphocytes % (Manual) 15 L Monocytes % (Manual) 8 Toxic Granulation Present Platelet Estimate Normal Macrocytosis (manual) Slight PT INR APTT pO2 VBG pH VBG pCO2 VBG HCO3 VBG Total CO2 VBG O2 Sat (Calc) VBG Base Excess VBG Potassium Glucose Lactate FiO2 Sodium 136 Potassium 5.1 H Chloride 96 L Carbon Dioxide 27 Anion Gap 18 BUN 54 H Creatinine 1.4 Est GFR ( Amer) 59 Est GFR (Non-Af Amer) 49 POC Glucose (mg/dL) 136 H Random Glucose 107 Calcium 9.2 Total Bilirubin 1.7 H AST 45 ALT 38 Alkaline Phosphatase 156 H Troponin I < 0.0120 Total Protein 9.0 H Albumin 4.2 Globulin 4.8 H Albumin/Globulin Ratio 0.9 L Venous Blood Potassium 03/15/18 03/15/18 03/15/18 15:30 15:52 23:12 WBC RBC Hgb Hct MCV MCH MCHC RDW Plt Count MPV Neut % (Auto) Lymph % (Auto) [place] % (Auto) Eos % (Auto) Baso % (Auto) Neut # (Auto) Lymph # (Auto) [place] # (Auto) Eos # (Auto) Baso # (Auto) Neutrophils % (Manual) Band Neutrophils % Lymphocytes % (Manual) Monocytes % (Manual) Toxic Granulation Platelet Estimate Macrocytosis (manual) PT 17.4 H INR 1.6 H APTT 32.8 pO2 16 L VBG pH 7.35 VBG pCO2 61 H VBG HCO3 27.1 VBG Total CO2 35.6 H VBG O2 Sat (Calc) 17.9 L VBG Base Excess 5.9 H VBG Potassium 4.6 Glucose 100 Lactate 1.4 FiO2 21.0 Sodium 135.0 Potassium Chloride 99.0 Carbon Dioxide Anion Gap BUN Creatinine Est GFR ( Amer) Est GFR (Non-Af Amer) POC Glucose (mg/dL) Random Glucose Calcium Total Bilirubin AST ALT Alkaline Phosphatase Troponin I < 0.0120 Total Protein Albumin Globulin Albumin/Globulin Ratio Venous Blood Potassium 4.6 03/16/18 03/16/18 03/16/18 05:20 05:20 05:20 WBC 7.5 RBC 4.51 Hgb 15.2 Hct 44.6 MCV 98.9 H MCH 33.6 H MCHC 34.0 RDW 15.3 H Plt Count 185 MPV 7.5 Neut % (Auto) 77.7 H Lymph % (Auto) 11.8 L [place] % (Auto) 9.5 Eos % (Auto) 0.6 Baso % (Auto) 0.4 Neut # (Auto) 5.8 Lymph # (Auto) 0.9 L [place] # (Auto) 0.7 Eos # (Auto) 0.0 Baso # (Auto) 0.0 Neutrophils % (Manual) Band Neutrophils % Lymphocytes % (Manual) Monocytes % (Manual) Toxic Granulation Platelet Estimate Macrocytosis (manual) PT INR APTT pO2 VBG pH VBG pCO2 VBG HCO3 VBG Total CO2 VBG O2 Sat (Calc) VBG Base Excess VBG Potassium Glucose Lactate FiO2 Sodium 138 Potassium 5.1 H Chloride 101 Carbon Dioxide 28 Anion Gap 14 BUN 39 H Creatinine 1.1 Est GFR ( Amer) > 60 Est GFR (Non-Af Amer) > 60 POC Glucose (mg/dL) Random Glucose 88 Calcium 9.0 Total Bilirubin AST ALT Alkaline Phosphatase Troponin I < 0.0120 Total Protein Albumin Globulin Albumin/Globulin Ratio Venous Blood Potassium Assessment & Plan (1) Atrial fibrillation Status: Chronic Priority: High (2) Pleural effusion Status: Chronic Priority: High (3) Chronic systolic congestive heart failure Status: Chronic Priority: High (4) Severe tricuspid regurgitation by prior echocardiogram Status: Chronic Priority: High - Date & Time Date: 03/16/18 Time: 13:31
--- NOTE | 2018-03-16 14:59 | CARD ---
APPROVED REPORT Date of service: 03/15/2018 EKG Measurement Heart [id number] <Conclusion> Atrial fibrillation Incomplete right bundle branch block Cannot rule out Anterior infarct, age undetermined Abnormal ECG
--- NOTE | 2018-03-16 18:59 | CP.PCM.PN ---
Subjective - Date & Time of Evaluation Date of Evaluation: 03/16/18 Time of Evaluation: 12:10 - Subjective Subjective: Patient seen and examined. Denied any complaint. Objective - Vital Signs/Intake and Output Vital Signs (last 24 hours): Temp Pulse Resp BP Pulse Ox 98.4 F 76 18 98/60 L 97 03/16/18 15:30 03/16/18 15:44 03/16/18 15:44 03/16/18 15:30 03/16/18 15:30 - Medications Medications: Current Medications Finasteride (Proscar) 5 mg PO DAILY [facility] Last Admin: 03/16/18 09:28 Dose: 5 mg Sodium Chloride (Sodium Chloride 0.9%) 1,000 mls @ 100 mls/hr IV .Q10H [facility] Stop: 03/17/18 11:28 Last Admin: 03/16/18 12:06 Dose: 100 mls/hr Latanoprost (Xalatan Opht) 1 drop OU HS [facility] Last Admin: 03/15/18 22:50 Dose: 1 drop Metoprolol Succinate (Toprol Xl) 25 mg PO DAILY [facility] Last Admin: 03/16/18 09:29 Dose: 25 mg Pantoprazole Sodium (Protonix Ec Tab) 40 mg PO DAILY [facility] Last Admin: 03/16/18 09:28 Dose: 40 mg Tamsulosin HCl (Flomax) 0.4 mg PO DAILY [facility] Timolol Maleate (Timoptic 0.5% Oph Soln) 1 drop OU DAILY [facility] Last Admin: 03/16/18 09:30 Dose: 1 drop - Labs Labs: 03/16/18 05:20 03/16/18 05:20 PT 17.4 Seconds (9.8-13.1) H 03/15/18 15:30 INR 1.6 (0.9-1.2) H 03/15/18 15:30 APTT 32.8 Seconds (25.6-37.1) 03/15/18 15:30 - Constitutional Appears: No Acute Distress, Cachectic - Head Exam Head Exam: absent: ATRAUMATIC (frontal laceration sutured; multiple abrasions on nose) - Eye Exam Eye Exam: absent: Scleral icterus - ENT Exam ENT Exam: Mucous Membranes Moist - Neck Exam Neck Exam: absent: Meningismus - Respiratory Exam Respiratory Exam: absent: Rales, Rhonchi, Wheezes, Respiratory Distress - Cardiovascular Exam Cardiovascular Exam: Irregular Rhythm - GI/Abdominal Exam GI & Abdominal Exam: Soft. absent: Tenderness - Rectal Exam Rectal Exam: Deferred - Extremities Exam Extremities Exam: absent: Pedal Edema - Neurological Exam Neurological Exam: Alert, Oriented x3 - Psychiatric Exam Psychiatric exam: Normal Affect - Skin Skin Exam: Dry, Intact Assessment and Plan - Assessment and Plan (Free Text) Assessment: 82 yo male with history of Chronic AFib, Chronic Right Sided Pleural effusion and CHF brought by EMS after he fell on the floor beside the bathroom. Not sure if he lost consciousness. Patient was recently discharged about 2 weeks ago because of LOC. Pacemaker was offered but patient refused. ECHO last December showed EF of 20-25% with global hypokinesia. Patient denied chest pain or SOB. 1. Syncope CT scan of head: no intracerebral bleed serial Troponin negative for ischemia severe TR on ECHO as per spout liner helper cardiology consult with Dr Velasquez (covering for Dr David) appreciated 2. Chronic AFib rate controlled on Metoprolol and Eliquis 3. CHF secondary to systolic dysfunction continue Lasix, Aldactone and Metoprolol 4. BPH on Finasteride and Flomax which both can cause postural hypotension advised patient to be aware of postural hypotension and be careful when suddenly rising up
[2018-03-16] MEDS: Latanoprost 0.005% Opht SOUTION OU SCH (21:40)
[2018-03-17] MEDS: Sodium Chloride 0.9% 1,000 ML IV SCH ×2 (06:14→08:37)
[2018-03-17 07:33] LABS: BLOOD UREA NITROGEN 35 mg/dl (9-20); CALCIUM 8.6 mg/dL (8.4-10.2); GFR AFRICAN-AMERICAN > 60; GFR NON-AFRICAN AMERICAN > 60
[2018-03-17] MEDS: Metoprolol Succinate 25 mg XL Tab PO SCH (08:42)
[2018-03-17] MEDS ORDERED: Sodium Chloride 0.9% 1,000 ML IV SCH (08:42)
[2018-03-17] MEDS: Pantoprazole 40 mg EC Tab PO SCH (08:43)
--- NOTE | 2018-03-17 08:50 | CP.PCM.PN ---
Subjective - Date & Time of Evaluation Date of Evaluation: 03/17/18 Time of Evaluation: 08:30 - Subjective Subjective: Has been on 100 ml/hr of IV NSfor 20 hrs Has been voiding regularly Telemetry shows A Fib at mod HR with two pauses of 1.8 sec each around 3:30 PM yesterday (HR ~34BPM) BP today : 100 mm Hg lying down 84 mm Hg sitting up 64 mm Hg standing up Labs show addl improvement in azotemia (K+ still 5.1 mEq/L) JVP mildly elevated, no rales Pulse OX stable Will D/C Toprol (25 mg) Will continue IV fluids at 75 ml/Hr Will monitor BMP Pt still at bed rest (No BRP Objective - Vital Signs/Intake and Output Vital Signs (last 24 hours): Temp Pulse Resp BP Pulse Ox 97 F L 90 18 91/66 L 96 03/17/18 08:00 03/17/18 08:00 03/17/18 08:00 03/17/18 08:42 03/17/18 08:00 Intake and Output: 03/17/18 03/17/18 06:59 18:59 Intake Total 1300 Balance 1300 - Medications Medications: Current Medications Finasteride (Proscar) 5 mg PO DAILY [facility] Last Admin: 03/17/18 08:37 Dose: 5 mg Sodium Chloride (Sodium Chloride 0.9%) 1,000 mls @ 75 mls/hr IV .[id number] [facility] Stop: 03/17/18 11:28 Latanoprost (Xalatan Opht) 1 drop OU HS [facility] Last Admin: 03/16/18 21:40 Dose: 1 drop Pantoprazole Sodium (Protonix Ec Tab) 40 mg PO DAILY [facility] Last Admin: 03/16/18 09:28 Dose: 40 mg Tamsulosin HCl (Flomax) 0.4 mg PO DAILY [facility] Last Admin: 03/17/18 08:37 Dose: 0.4 mg Timolol Maleate (Timoptic 0.5% Ophth Soln) 1 drop OU DAILY [facility] Last Admin: 03/17/18 08:38 Dose: 1 drop - Labs Labs: 03/16/18 05:20 03/17/18 05:30 PT 17.4 Seconds (9.8-13.1) H 03/15/18 15:30 INR 1.6 (0.9-1.2) H 03/15/18 15:30 APTT 32.8 Seconds (25.6-37.1) 03/15/18 15:30
[2018-03-17] MEDS ORDERED: Sod Polystyrene Sulf 15 gm/60 ml Susp PO ONE (10:00)
--- NOTE | 2018-03-17 12:25 | CP.PCM.PN ---
Subjective - Date & Time of Evaluation Date of Evaluation: 03/17/18 Time of Evaluation: 12:25 - Subjective Subjective: pt doing well continues orthostasis gentle hydration low bp monitor Objective - Vital Signs/Intake and Output Vital Signs (last 24 hours): Temp Pulse Resp BP Pulse Ox 97.6 F 39 L 18 92/63 L 95 03/17/18 12:00 03/17/18 12:00 03/17/18 12:00 03/17/18 12:00 03/17/18 12:00 Vitals Reviewed GEN: WDWN, alert, cooperative HEENT: NCAT, PERRL, EOMI HEART: RRR, +S1S2, NO MRG LUNG: CTAB, NO WRR ABD: soft, NT, ND, No HSM, No masses EXT: normal pedal pulses, normal capillary refill NEURO: awake, alert, no focal deficits SKIN: warm, dry PSYCH: normal mood, normal affect Intake and Output: 03/17/18 03/17/18 06:59 18:59 Intake Total 1300 Balance 1300 - Medications Medications: Current Medications Finasteride (Proscar) 5 mg PO DAILY [facility] Last Admin: 03/17/18 08:37 Dose: 5 mg Latanoprost (Xalatan Opht) 1 drop OU HS [facility] Last Admin: 03/16/18 21:40 Dose: 1 drop Pantoprazole Sodium (Protonix Ec Tab) 40 mg PO DAILY [facility] Last Admin: 03/17/18 08:43 Dose: 40 mg Tamsulosin HCl (Flomax) 0.4 mg PO DAILY [facility] Last Admin: 03/17/18 08:37 Dose: 0.4 mg Timolol Maleate (Timoptic 0.5% Ophth Soln) 1 drop OU DAILY [facility] Last Admin: 03/17/18 08:38 Dose: 1 drop - Labs Labs: 03/16/18 05:20 03/17/18 05:30 PT 17.4 Seconds (9.8-13.1) H 03/15/18 15:30 INR 1.6 (0.9-1.2) H 03/15/18 15:30 APTT 32.8 Seconds (25.6-37.1) 03/15/18 15:30 Assessment and Plan - Assessment and Plan (Free Text) Plan: 82 yo male with history of Chronic AFib, Chronic Right Sided Pleural effusion and CHF brought by EMS after he fell on the floor beside the bathroom. Not sure if he lost consciousness. Patient was recently discharged about 2 weeks ago because of LOC. Pacemaker was offered but patient refused. ECHO last December showed EF of 20-25% with global hypokinesia. Patient denied chest pain or SOB. Syncope CT scan of head: no intracerebral bleed serial Troponin negative for ischemia severe TR on ECHO as per clinic specialist cardiology consult with Dr Velasquez (covering for Dr David) appreciated likely due to orthostatic hypotension Orthostatic Hypotension - continue gentle hydration Chronic AFib rate controlled on Metoprolol and Eliquis hold toprol for bradycardia CHF secondary to systolic dysfunction continue Lasix, Aldactone and Metoprolol BPH on Finasteride and Flomax which both can cause postural hypotension advised patient to be aware of postural hypotension and be careful when suddenly rising up Orthostatic Hypotension - continue gentle hydration
[2018-03-17] MEDS: Latanoprost 0.005% Opht SOUTION OU SCH (21:27)
[2018-03-18 06:02] LABS: BLOOD UREA NITROGEN 28 mg/dl (9-20); CALCIUM 8.3 mg/dL (8.4-10.2); GFR AFRICAN-AMERICAN > 60; GFR NON-AFRICAN AMERICAN > 60
[2018-03-18 06:08] LABS: HEMOGLOBIN 13.8 g/dL (12.0-18.0); MEAN CORPUSCULAR HEMOGLOBIN 34.9 pg (27.0-31.0); MEAN CORPUSCULAR HGB CONC 35.2 g/dL (33.0-37.0); RBC 3.97 Mil/uL (4.40-5.90); RED CELL DISTRIBUTION WIDTH 15.3 % (11.5-14.5)
--- NOTE | 2018-03-18 08:52 | CP.PCM.PN ---
Subjective - Date & Time of Evaluation Date of Evaluation: 03/18/18 Time of Evaluation: 08:10 - Subjective Subjective: Was able to ambulate to the BR with supervision without dizziness On IV fluids (75 ml/hr for 24 hrs) BP 100 mm Hg lying down 80 mm Hg standing up No rales JVP elevated due to severe TR Hemodilution and dropping BUN/Creatinin with IV hydration Pt to have W/U to figure out reason for RV failure D/ Sudheer Tamsulosin (Frequency of nocturia has not changed with reduction in Tamsulosin) Objective - Vital Signs/Intake and Output Vital Signs (last 24 hours): Temp Pulse Resp BP Pulse Ox 97.4 F L 76 20 106/70 96 03/18/18 04:45 03/18/18 04:45 03/18/18 04:45 03/18/18 04:45 03/18/18 04:45 Intake and Output: 03/18/18 03/18/18 06:59 18:59 Intake Total 1200 Output Total 1500 Balance -300 - Medications Medications: Current Medications Finasteride (Proscar) 5 mg PO DAILY [facility] Last Admin: 03/17/18 08:37 Dose: 5 mg Sodium Chloride (Sodium Chloride 0.9%) 1,000 mls @ 75 mls/hr IV .[id number] [facility] Stop: 03/19/18 08:45 Latanoprost (Xalatan Opht) 1 drop OU HS [facility] Last Admin: 03/17/18 21:27 Dose: 1 drop Pantoprazole Sodium (Protonix Ec Tab) 40 mg PO DAILY [facility] Last Admin: 03/17/18 08:43 Dose: 40 mg Timolol Maleate (Timoptic 0.5% Ophth Soln) 1 drop OU DAILY [facility] Last Admin: 03/17/18 08:38 Dose: 1 drop - Labs Labs: 03/18/18 04:20 03/18/18 04:20 PT 17.4 Seconds (9.8-13.1) H 03/15/18 15:30 INR 1.6 (0.9-1.2) H 03/15/18 15:30 APTT 32.8 Seconds (25.6-37.1) 03/15/18 15:30
[2018-03-18] MEDS: Pantoprazole 40 mg EC Tab PO SCH (09:47)
[2018-03-18] MEDS: Sodium Chloride 0.9% 1,000 ML IV SCH ×2 (09:48→23:45)
--- NOTE | 2018-03-18 10:40 | CP.PCM.PN ---
Subjective - Date & Time of Evaluation Date of Evaluation: 03/18/18 Time of Evaluation: 10:29 - Subjective Subjective: Seen on morning rounds. Appears to be improving. Tamsulosin has been decreased w/o ill effect. Able to ambulate to the BR with assistance. BUN and creatinine have improved with IV hydration. Awaiting VQ lung scan to assess possible occult PE. Dependant edema +, no cyanosis. Awake, alert, cooperative. Neck is supple, trachea midline. No dullness over the anterior chest, + dullness posteriorly on the right. Breath sounds are absent in the right base. No rales or wheezes, no bronchial breathing. RV failure with severe tricuspid regurgitation. Chronic atrial fibrillation. BPH with LUTS. Await results of VQ scan. Would benefit from FREYA. Objective - Vital Signs/Intake and Output Vital Signs (last 24 hours): Temp Pulse Resp BP Pulse Ox 97.4 F L 76 20 106/70 96 03/18/18 04:45 03/18/18 04:45 03/18/18 04:45 03/18/18 04:45 03/18/18 04:45 Intake and Output: 03/17/18 03/18/18 23:59 11:59 Intake Total 1910 1200 Output Total 1200 1500 Balance 710 -300 - Medications Medications: Current Medications Finasteride (Proscar) 5 mg PO DAILY [facility] Last Admin: 03/18/18 09:47 Dose: 5 mg Sodium Chloride (Sodium Chloride 0.9%) 1,000 mls @ 75 mls/hr IV .[id number] [facility] Stop: 03/19/18 08:45 Last Admin: 03/18/18 09:48 Dose: 75 mls/hr Latanoprost (Xalatan Opht) 1 drop OU HS [facility] Last Admin: 03/17/18 21:27 Dose: 1 drop Pantoprazole Sodium (Protonix Ec Tab) 40 mg PO DAILY [facility] Last Admin: 03/18/18 09:47 Dose: 40 mg Timolol Maleate (Timoptic 0.5% Ophth Soln) 1 drop OU DAILY [facility] Last Admin: 03/18/18 09:47 Dose: 1 drop - Labs Labs: 03/18/18 04:20 03/18/18 04:20 PT 17.4 Seconds (9.8-13.1) H 03/15/18 15:30 INR 1.6 (0.9-1.2) H 03/15/18 15:30 APTT 32.8 Seconds (25.6-37.1) 03/15/18 15:30 Assessment and Plan (1) Atrial fibrillation Status: Chronic (2) Pleural effusion Status: Chronic (3) Chronic systolic congestive heart failure Status: Chronic (4) Severe tricuspid regurgitation by prior echocardiogram Status: Chronic
--- NOTE | 2018-03-18 14:01 | RAD ---
Date of service: 03/18/2018 PROCEDURE: CHEST RADIOGRAPH, 1 VIEW HISTORY: post V/Q scan protocol COMPARISON: 03/15/2018 FINDINGS: LUNGS: Stable right lower lobe and right middle lobe infiltrates. PLEURA: Stable pleural effusion. CARDIOVASCULAR: Normal. OSSEOUS STRUCTURES: No significant abnormalities. VISUALIZED UPPER ABDOMEN: Normal. OTHER FINDINGS: None. IMPRESSION: Stable findings right jemima thorax including large right pleural effusion and compressive atelectasis right lower lobe and right middle lobe.
--- NOTE | 2018-03-18 14:08 | CP.PCM.PN ---
Addendum entered and electronically signed by Katelynn Wilkins MD 14:36: Chronic systolic CHF descriptor for CHF. EF: 20-25%. Original Note: <Katelynn Wilkins - Last Filed: 03/18/18 14:30> Subjective - Date & Time of Evaluation Date of Evaluation: 03/18/18 Time of Evaluation: 08:30 - Subjective Subjective: Patient seen and examined at bedside with Dr. Garcia. He is sitting comfortably and reports that he is feeling okay today. He states that he has fallen a few times before. He denies Chest pain, shortness of breath, nausea, vomiting, headaches, vision changes, and diarrhea. Objective - Vital Signs/Intake and Output Vital Signs (last 24 hours): Temp Pulse Resp BP Pulse Ox 97.4 F L 76 20 106/70 96 03/18/18 04:45 03/18/18 04:45 03/18/18 04:45 03/18/18 04:45 03/18/18 04:45 Intake and Output: 03/18/18 03/18/18 06:59 18:59 Intake Total 1200 Output Total 1500 Balance -300 - Medications Medications: Current Medications Aspirin (Ecotrin) 81 mg PO DAILY [facility] Finasteride (Proscar) 5 mg PO DAILY [facility] Last Admin: 03/18/18 09:47 Dose: 5 mg Sodium Chloride (Sodium Chloride 0.9%) 1,000 mls @ 75 mls/hr IV .[id number] [facility] Stop: 03/19/18 08:45 Last Admin: 03/18/18 09:48 Dose: 75 mls/hr Latanoprost (Xalatan Opht) 1 drop OU HS [facility] Last Admin: 03/17/18 21:27 Dose: 1 drop Pantoprazole Sodium (Protonix Ec Tab) 40 mg PO DAILY [facility] Last Admin: 03/18/18 09:47 Dose: 40 mg Timolol Maleate (Timoptic 0.5% Ophth Soln) 1 drop OU DAILY [facility] Last Admin: 03/18/18 09:47 Dose: 1 drop - Labs Labs: 03/18/18 04:20 03/18/18 04:20 PT 17.4 Seconds (9.8-13.1) H 03/15/18 15:30 INR 1.6 (0.9-1.2) H 03/15/18 15:30 APTT 32.8 Seconds (25.6-37.1) 03/15/18 15:30 - Constitutional Appears: Non-toxic, No Acute Distress, Cachectic, Chronically Ill - Head Exam Additional comments: Multiple ecchymosis appreciated on the head (right and left side). - Eye Exam Eye Exam: Normal appearance - ENT Exam ENT Exam: Mucous Membranes Moist, Normal Oropharynx - Neck Exam Neck Exam: Normal Inspection. absent: Lymphadenopathy, Tenderness, Thyromegaly - Respiratory Exam Respiratory Exam: Clear to Ausculation Bilateral, NORMAL BREATHING PATTERN. absent: Prolonged Expiratory Phase, Rhonchi, Wheezes, Respiratory Distress, Stridor - Cardiovascular Exam Cardiovascular Exam: Irregular Rhythm, +S1, +S2. absent: Clicks, Diastolic murmur, Gallop, JVD, RRR, Murmur - GI/Abdominal Exam GI & Abdominal Exam: Soft, Normal Bowel Sounds. absent: Distended, Firm, Guarding, Tenderness, Organomegaly, Pulsatile Mass, Rebound - Extremities Exam Extremities Exam: Normal Inspection. absent: Calf Tenderness, Joint Swelling, Pedal Edema, Tenderness - Neurological Exam Neurological Exam: Alert, Awake - Psychiatric Exam Psychiatric exam: Normal Affect, Normal Mood - Skin Skin Exam: Dry, Intact, Normal Color, Warm Assessment and Plan (1) Syncope due to orthostatic hypotension Status: Acute (2) Orthostatic hypotension Status: Acute (3) Chronic a-fib Status: Acute (4) CHF (congestive heart failure) Status: Acute (5) BPH (benign prostatic hyperplasia) Status: Acute (6) DVT prophylaxis Status: Acute - Assessment and Plan (Free Text) Assessment: 82 yo male with h/o of Chronic AFib, Chronic Right Sided Pleural effusion and CHF brought by EMS after he fell on the floor beside the bathroom. Not sure if he lost consciousness. Patient was recently discharged about 2 weeks ago because of LOC. Pacemaker was offered but patient refused. ECHO last December showed EF of 20-25% with global hypokinesia. Plan: Syncope due to orthostatic hypotension (? Beta irving, ? Tricuspid regurg) - CT scan of head: no intracerebral bleed - Troponins negative x3 - severe TR on ECHO as per shaft mechanic -cardiology consult with Dr Velasquez (covering for Dr Costomiris) appreciated Orthostatic Hypotension possibly secondary to Tamsulosin - Continue gentle hydration - Discontinued metoprolol because of bradycardia - Discontinued Tamsulosin because of orthostatic hypotension Chronic AFib -rate controlled -Metoprolol discontinued due to bradycardia -Eliquis discontinued due history of two falls. -Patient started on aspirin 81mg daily. CHF -secondary to systolic dysfunction; EF: 20-25% -discontinued Lasix due to severe tricuspid regurgitation -discontinued Aldactone due to hyperkalemia -discontinued Metoprolol due to bradycardia BPH -Tamsulosin discontinued due to orthostatic hypotension -Continue Finasteride -Advised patient to be aware of postural hypotension and be careful when suddenly rising up DVT prophylaxis: -Patients INR: 1.6 given he was Eliquis previously. <Lucas Garcia - Last Filed: 03/19/18 16:38> Objective - Vital Signs/Intake and Output Vital Signs (last 24 hours): Temp Pulse Resp BP Pulse Ox 97.6 F 83 16 88/53 L 98 03/19/18 16:05 03/19/18 16:05 03/19/18 16:05 03/19/18 16:05 03/19/18 16:05 - Medications Medications: Current Medications Aspirin (Ecotrin) 81 mg PO DAILY [facility] Last Admin: 03/19/18 08:31 Dose: 81 mg Bacitracin (Bacitracin Oint) 1 applic TOP BID [facility] Last Admin: 03/19/18 08:31 Dose: 1 applic Finasteride (Proscar) 5 mg PO DAILY [facility] Last Admin: 03/19/18 08:32 Dose: 5 mg Sodium Chloride (Sodium Chloride 0.9%) 250 mls @ 250 mls/hr IV .Q1H [facility] Stop: 03/20/18 16:34 Latanoprost (Xalatan Opht) 1 drop OU HS [facility] Last Admin: 03/18/18 21:07 Dose: 1 drop Pantoprazole Sodium (Protonix Ec Tab) 40 mg PO DAILY [facility] Last Admin: 03/19/18 08:32 Dose: 40 mg Timolol Maleate (Timoptic 0.5% Ophth Soln) 1 drop OU DAILY [facility] Last Admin: 03/19/18 08:53 Dose: 1 drop - Labs Labs: 03/19/18 04:20 03/19/18 04:20 PT 17.4 Seconds (9.8-13.1) H 03/15/18 15:30 INR 1.6 (0.9-1.2) H 03/15/18 15:30 APTT 32.8 Seconds (25.6-37.1) 03/15/18 15:30 Attending/Attestation - Attestation I have personally seen and examined this patient.: Yes I have fully participated in the care of the patient.: Yes I have reviewed all pertinent clinical information, including history, physical exam and plan: Yes Notes (Text): Syncope due to orthostatic hypotension (? Beta irving, ? Tricuspid regurg) Orthostatic Hypotension possibly secondary to Tamsulosin stopped today Consider midodrine Chronic AFib -Eliquis discontinued due history of two falls. -Patient started on aspirin 81mg daily. CHF not in acute chf monitor for fluid overload giving fluids currently -secondary to systolic dysfunction; EF: 20-25% -discontinued Lasix due to severe tricuspid regurgitation -discontinued Aldactone due to hyperkalemia -discontinued Metoprolol due to bradycardia BPH -Tamsulosin discontinued due to orthostatic hypotension -Continue Finasteride -Advised patient to be aware of postural hypotension and be careful when suddenly rising up DVT prophylaxis: -Patients INR: 1.6 given he was Eliquis previously.
--- NOTE | 2018-03-18 14:18 | NM ---
Date of service: 03/18/2018 COMPARISON: March 18, 2018. Single-view chest TECHNIQUE: 42.8 mCi technetium 99-m DTPA aerosol. 5.4 mCI technetium 99-m MAA administered intravenously. FINDINGS: VENTILATION COMPONENT: Heterogeneous ventilation particularly right lung corresponds to findings on recent chest radiograph. Similar less pronounced changes primarily in the left upper lobe. PERFUSION COMPONENT: Heterogeneous distribution of radionuclide. No geographic, segmental, lobar abnormalities apparent on the present examination. The abnormalities on the perfusion scan are less extensive than the ventilation component IMPRESSION: Low probability ventilation perfusion scan for pulmonary embolism.
[2018-03-18] MEDS: Bacitracin OINT 15GM TOP SCH (16:30)
[2018-03-18] MEDS: Latanoprost 0.005% Opht SOUTION OU SCH (21:07)
[2018-03-19 06:05] LABS: HEMOGLOBIN 13.5 g/dL (12.0-18.0); MEAN CELL VOLUME 98.9 fl (80.0-94.0); MEAN CORPUSCULAR HEMOGLOBIN 33.9 pg (27.0-31.0); MEAN CORPUSCULAR HGB CONC 34.2 g/dL (33.0-37.0); RBC 3.99 Mil/uL (4.40-5.90); RED CELL DISTRIBUTION WIDTH 14.9 % (11.5-14.5); WHITE BLOOD COUNT 10.2 K/uL (4.8-10.8)
[2018-03-19 06:07] LABS: BLOOD UREA NITROGEN 33 mg/dl (9-20); CALCIUM 8.2 mg/dL (8.4-10.2); GFR AFRICAN-AMERICAN > 60; GFR NON-AFRICAN AMERICAN 58
--- NOTE | 2018-03-19 08:24 | CP.PCM.PN ---
Subjective - Date & Time of Evaluation Date of Evaluation: 03/19/18 Time of Evaluation: 08:24 Objective - Vital Signs/Intake and Output Vital Signs (last 24 hours): Temp Pulse Resp BP Pulse Ox 97.7 F 78 18 97/63 L 98 03/19/18 05:34 03/19/18 05:34 03/19/18 05:34 03/19/18 05:34 03/19/18 05:58 - Medications Medications: Current Medications Aspirin (Ecotrin) 81 mg PO DAILY [facility] Bacitracin (Bacitracin Oint) 1 applic TOP BID [facility] Last Admin: 03/18/18 16:30 Dose: 1 applic Finasteride (Proscar) 5 mg PO DAILY [facility] Last Admin: 03/18/18 09:47 Dose: 5 mg Sodium Chloride (Sodium Chloride 0.9%) 1,000 mls @ 75 mls/hr IV .[id number] [facility] Stop: 03/19/18 08:45 Last Admin: 03/18/18 23:45 Dose: 75 mls/hr Latanoprost (Xalatan Opht) 1 drop OU HS [facility] Last Admin: 03/18/18 21:07 Dose: 1 drop Pantoprazole Sodium (Protonix Ec Tab) 40 mg PO DAILY [facility] Last Admin: 03/18/18 09:47 Dose: 40 mg Timolol Maleate (Timoptic 0.5% Oph Soln) 1 drop OU DAILY [facility] Last Admin: 03/18/18 09:47 Dose: 1 drop - Labs Labs: 03/19/18 04:20 03/19/18 04:20 PT 17.4 Seconds (9.8-13.1) H 03/15/18 15:30 INR 1.6 (0.9-1.2) H 03/15/18 15:30 APTT 32.8 Seconds (25.6-37.1) 03/15/18 15:30 Assessment and Plan (1) Syncope due to orthostatic hypotension Status: Acute (2) Orthostatic hypotension Status: Acute (3) Chronic a-fib Status: Acute (4) CHF (congestive heart failure) Status: Acute (5) BPH (benign prostatic hyperplasia) Status: Acute (6) DVT prophylaxis Status: Acute
[2018-03-19] MEDS: Bacitracin OINT 15GM TOP SCH ×2 (08:31→17:05)
[2018-03-19] MEDS: Pantoprazole 40 mg EC Tab PO SCH (08:32)
--- NOTE | 2018-03-19 09:36 | CP.PCM.PN ---
Subjective - Date & Time of Evaluation Date of Evaluation: 03/19/18 Time of Evaluation: 08:50 - Subjective Subjective: Denies any dyspnoea A Fib at 70-80 BPM on telemetry BP 100 mm Hg lying down in bed 90 mm Hg syst standing up (Pt off of Flomax) JVP mildly elevated Rt pleural effusion+ Labs noted Will likely need Rt pleural tap May have PT (?? TCU) Objective - Vital Signs/Intake and Output Vital Signs (last 24 hours): Temp Pulse Resp BP Pulse Ox 97.9 F 92 H 20 99/65 L 96 03/19/18 08:00 03/19/18 08:00 03/19/18 08:00 03/19/18 08:00 03/19/18 08:00 - Medications Medications: Current Medications Aspirin (Ecotrin) 81 mg PO DAILY [facility] Last Admin: 03/19/18 08:31 Dose: 81 mg Bacitracin (Bacitracin Oint) 1 applic TOP BID [facility] Last Admin: 03/19/18 08:31 Dose: 1 applic Finasteride (Proscar) 5 mg PO DAILY [facility] Last Admin: 03/19/18 08:32 Dose: 5 mg Latanoprost (Xalatan Opht) 1 drop OU HS [facility] Last Admin: 03/18/18 21:07 Dose: 1 drop Pantoprazole Sodium (Protonix Ec Tab) 40 mg PO DAILY [facility] Last Admin: 03/19/18 08:32 Dose: 40 mg Timolol Maleate (Timoptic 0.5% Ophth Soln) 1 drop OU DAILY [facility] Last Admin: 03/19/18 08:53 Dose: 1 drop - Labs Labs: 03/19/18 04:20 03/19/18 04:20 PT 17.4 Seconds (9.8-13.1) H 03/15/18 15:30 INR 1.6 (0.9-1.2) H 03/15/18 15:30 APTT 32.8 Seconds (25.6-37.1) 03/15/18 15:30
--- NOTE | 2018-03-19 09:53 | CP.PCM.PN ---
Subjective - Date & Time of Evaluation Date of Evaluation: 03/19/18 Time of Evaluation: 09:53 Objective - Vital Signs/Intake and Output Vital Signs (last 24 hours): Temp Pulse Resp BP Pulse Ox 97.9 F 92 H 20 99/65 L 96 03/19/18 08:00 03/19/18 08:00 03/19/18 08:00 03/19/18 08:00 03/19/18 08:00 - Medications Medications: Current Medications Aspirin (Ecotrin) 81 mg PO DAILY [facility] Last Admin: 03/19/18 08:31 Dose: 81 mg Bacitracin (Bacitracin Oint) 1 applic TOP BID [facility] Last Admin: 03/19/18 08:31 Dose: 1 applic Finasteride (Proscar) 5 mg PO DAILY [facility] Last Admin: 03/19/18 08:32 Dose: 5 mg Latanoprost (Xalatan Opht) 1 drop OU HS [facility] Last Admin: 03/18/18 21:07 Dose: 1 drop Pantoprazole Sodium (Protonix Ec Tab) 40 mg PO DAILY [facility] Last Admin: 03/19/18 08:32 Dose: 40 mg Timolol Maleate (Timoptic 0.5% Ophth Soln) 1 drop OU DAILY [facility] Last Admin: 03/19/18 08:53 Dose: 1 drop - Labs Labs: 03/19/18 04:20 03/19/18 04:20 PT 17.4 Seconds (9.8-13.1) H 03/15/18 15:30 INR 1.6 (0.9-1.2) H 03/15/18 15:30 APTT 32.8 Seconds (25.6-37.1) 03/15/18 15:30 Assessment and Plan (1) Atrial fibrillation Status: Chronic (2) Pleural effusion Status: Chronic (3) Chronic systolic congestive heart failure Status: Chronic (4) Severe tricuspid regurgitation by prior echocardiogram Status: Chronic
--- NOTE | 2018-03-19 16:02 | CP.PCM.DIS ---
Provider - Provider Date of Admission: 03/15/18 18:06 Attending physician: Seun Hinds MD Time Spent in preparation of Discharge (in minutes): 15 Diagnosis - Discharge Diagnosis (1) Syncope due to orthostatic hypotension Status: Acute Comment: d/c'ed tamsulosin (2) Orthostatic hypotension Status: Acute Comment: d/c'ed metoprolol and tamsulosin. (3) Chronic a-fib Status: Acute Comment: rate controlled. metoprolol d/c'ed due to bradycardia. eliquis d/c'ed due to history of falls. (4) CHF (congestive heart failure) Status: Acute Comment: chronic systolic CHF: 20-25% (5) BPH (benign prostatic hyperplasia) Status: Acute Comment: Tamsulosin d/c'ed due to orthostatic hypotension. continue finasteride. advised patient to be aware of postural hypotension (6) DVT prophylaxis Status: Acute Comment: Patient's INR was 1.6. Hospital Course - Lab Results Lab Results: Most Recent Lab Values WBC 10.2 K/uL (4.8-10.8) D 03/19/18 04:20 RBC 3.99 Mil/uL (4.40-5.90) L 03/19/18 04:20 Hgb 13.5 g/dL (12.0-18.0) 03/19/18 04:20 Hct 39.4 % (35.0-51.0) 03/19/18 04:20 MCV 98.9 fl (80.0-94.0) H 03/19/18 04:20 MCH 33.9 pg (27.0-31.0) H 03/19/18 04:20 MCHC 34.2 g/dL (33.0-37.0) 03/19/18 04:20 RDW 14.9 % (11.5-14.5) H 03/19/18 04:20 Plt Count 164 K/uL (130-400) 03/19/18 04:20 MPV 7.5 fl (7.2-11.7) 03/16/18 05:20 Neut % (Auto) 77.7 % (50.0-75.0) H 03/16/18 05:20 Lymph % (Auto) 11.8 % (20.0-40.0) L 03/16/18 05:20 [place] % (Auto) 9.5 % (0.0-10.0) 03/16/18 05:20 Eos % (Auto) 0.6 % (0.0-4.0) 03/16/18 05:20 Baso % (Auto) 0.4 % (0.0-2.0) 03/16/18 05:20 Neut # (Auto) 5.8 K/uL (1.8-7.0) 03/16/18 05:20 Lymph # (Auto) 0.9 K/uL (1.0-4.3) L 03/16/18 05:20 [place] # (Auto) 0.7 K/uL (0.0-0.8) 03/16/18 05:20 Eos # (Auto) 0.0 K/uL (0.0-0.7) 03/16/18 05:20 Baso # (Auto) 0.0 K/uL (0.0-0.2) 03/16/18 05:20 Neutrophils % (Manual) 73 % (42-75) 03/15/18 15:30 Band Neutrophils % 4 % (0-2) H 03/15/18 15:30 Lymphocytes % (Manual) 15 % (20-50) L 03/15/18 15:30 Monocytes % (Manual) 8 % (0-10) 03/15/18 15:30 Toxic Granulation Present 03/15/18 15:30 Platelet Estimate Normal (NORMAL) 03/15/18 15:30 Macrocytosis (manual) Slight 03/15/18 15:30 PT 17.4 Seconds (9.8-13.1) H 03/15/18 15:30 INR 1.6 (0.9-1.2) H 03/15/18 15:30 APTT 32.8 Seconds (25.6-37.1) 03/15/18 15:30 pO2 16 mm/Hg (30-55) L 03/15/18 15:52 VBG pH 7.35 (7.32-7.43) 03/15/18 15:52 VBG pCO2 61 mmHg (40-60) H 03/15/18 15:52 VBG HCO3 27.1 mmol/L 03/15/18 15:52 VBG Total CO2 35.6 mmol/L (22-28) H 03/15/18 15:52 VBG O2 Sat (Calc) 17.9 % (40-65) L 03/15/18 15:52 VBG Base Excess 5.9 mmol/L (0.0-2.0) H 03/15/18 15:52 VBG Potassium 4.6 mmol/L (3.6-5.2) 03/15/18 15:52 Sodium 135.0 mmol/L (132-148) 03/15/18 15:52 Chloride 99.0 mmol/L (98-107) 03/15/18 15:52 Glucose 100 mg/dL (75-110) 03/15/18 15:52 Lactate 1.4 mmol/L (0.7-2.1) 03/15/18 15:52 FiO2 21.0 % 03/15/18 15:52 Sodium 139 mmol/l (132-148) 03/19/18 04:20 Potassium 4.3 MMOL/L (3.6-5.0) 03/19/18 04:20 Chloride 108 mmol/L (98-107) H 03/19/18 04:20 Carbon Dioxide 25 mmol/L (22-30) 03/19/18 04:20 Anion Gap 10 (10-20) 03/19/18 04:20 BUN 33 mg/dl (9-20) H 03/19/18 04:20 Creatinine 1.2 mg/dl (0.8-1.5) 03/19/18 04:20 Est GFR ( Amer) > 60 03/19/18 04:20 Est GFR (Non-Af Amer) 58 03/19/18 04:20 POC Glucose (mg/dL) 136 mg/dL (65-110) H 03/15/18 15:25 Random Glucose 117 mg/dL (75-110) H 03/19/18 04:20 Calcium 8.2 mg/dL (8.4-10.2) L 03/19/18 04:20 Total Bilirubin 1.7 mg/dl (0.2-1.3) H 03/15/18 15:30 AST 45 U/L (17-59) 03/15/18 15:30 ALT 38 U/L (21-72) 03/15/18 15:30 Alkaline Phosphatase 156 U/L (38-126) H 03/15/18 15:30 Troponin I < 0.0120 ng/mL (0.00-0.120) 03/16/18 05:20 Total Protein 9.0 G/DL (6.3-8.2) H 03/15/18 15:30 Albumin 4.2 g/dL (3.5-5.0) 03/15/18 15:30 Globulin 4.8 gm/dL (2.2-3.9) H 03/15/18 15:30 Albumin/Globulin Ratio 0.9 (1.0-2.1) L 03/15/18 15:30 Venous Blood Potassium 4.6 mmol/L (3.6-5.2) 03/15/18 15:52 - Hospital Course Hospital Course: 82 yo male with h/o of Chronic AFib, Chronic Right Sided Pleural effusion and CHF brought by EMS after he fell on the floor beside the bathroom. It occurred after climbing one flight of stairs. Unsure of LOC. Patient was recently discharged about 2 weeks ago because of LOC. Pacemaker was offered but patient refused. ECHO last December showed EF of 20-25% with global hypokinesia. Severe TR on ECHO. ER: Ct scan of the head did not demonstrate an intracerebral bleed. Troponins were negative x3. Chest Xray: negative EKG: A fib, incomplete Right bundle branch block. Several medications were discontinued due to orthostatic hypotension and bradycardia. - Orthostatic hypotension: Tamsulosin was discontinued - Bradycardia: metoprolol was discontinued. Patient currently on Aspirin for his chronic afib. Patient reports feeling better but his BP tends to run on the lower side. He is educated upon postural hypotension and to be very careful when suddenly rising up. He is willing to go to TCU for rehab. Discharge Exam - Head Exam Head Exam: absent: ATRAUMATIC (frontal laceration sutured; multiple abrasions on nose) - Eye Exam Eye Exam: Normal appearance - ENT Exam ENT Exam: Mucous Membranes Moist, Normal Oropharynx Additional comments: +ecchymosis present on the head; Left sided laceration on the front of the head present, healing. - Neck Exam Neck exam: Normal Inspection - Respiratory Exam Respiratory Exam: NORMAL BREATHING PATTERN, UNREMARKABLE. absent: Chest Wall Tenderness, Decreased Breath Sounds, Prolonged Expiratory Phase, Rales, Rhonchi , Wheezes, Respiratory Distress, Stridor - Cardiovascular Exam Cardiovascular Exam: Irregular Rhythm, +S1, +S2. absent: Clicks, Diastolic murmur, Gallop, JVD, Rubs, +S4, Systolic Murmur - GI/Abdominal Exam GI & Abdominal Exam: Normal Bowel Sounds, Soft, Unremarkable. absent: Firm, Guarding, Hernia, Organomegaly, Pulsatile Mass, Rebound, Rigid, Tenderness - Neurological Exam Neurological exam: Alert, Oriented x3 - Psychiatric Exam Psychiatric exam: Normal Affect, Normal Mood - Skin Skin Exam: Dry, Intact, Normal Color, Warm Discharge Plan - Follow Up Plan Condition: GUARDED Disposition: REHAB FACILITY/REHAB UNIT Referrals: Brandon David MD [Staff Provider] - Fady Briscoe MD [Family Provider] -
[2018-03-19] MEDS ORDERED: Sodium Chloride 0.9% 250 ML IV SCH ×2 (16:45→17:15)
--- NOTE | 2018-03-19 16:45 | CP.PCM.PN ---
Subjective - Date & Time of Evaluation Date of Evaluation: 03/19/18 Time of Evaluation: 09:00 - Subjective Subjective: Patient seen and examined at bedside with Dr. Garcia. He is sitting comfortably and reports that he is feeling okay today. Discharge to TCU after thoracentesis was discussed with patient and he reports he will go to get stronger. He denies Chest pain, shortness of breath, nausea, vomiting, headaches , vision changes, and diarrhea. Objective - Vital Signs/Intake and Output Vital Signs (last 24 hours): Temp Pulse Resp BP Pulse Ox 97.6 F 83 16 88/53 L 98 03/19/18 16:05 03/19/18 16:05 03/19/18 16:05 03/19/18 16:05 03/19/18 16:05 - Medications Medications: Current Medications Aspirin (Ecotrin) 81 mg PO DAILY [facility] Last Admin: 03/19/18 08:31 Dose: 81 mg Bacitracin (Bacitracin Oint) 1 applic TOP BID [facility] Last Admin: 03/19/18 08:31 Dose: 1 applic Finasteride (Proscar) 5 mg PO DAILY [facility] Last Admin: 03/19/18 08:32 Dose: 5 mg Sodium Chloride (Sodium Chloride 0.9%) 250 mls @ 250 mls/hr IV .Q1H [facility] Stop: 03/20/18 16:34 Latanoprost (Xalatan Opht) 1 drop OU HS [facility] Last Admin: 03/18/18 21:07 Dose: 1 drop Pantoprazole Sodium (Protonix Ec Tab) 40 mg PO DAILY [facility] Last Admin: 03/19/18 08:32 Dose: 40 mg Timolol Maleate (Timoptic 0.5% Ophth Soln) 1 drop OU DAILY [facility] Last Admin: 03/19/18 08:53 Dose: 1 drop - Labs Labs: 03/19/18 04:20 03/19/18 04:20 PT 17.4 Seconds (9.8-13.1) H 03/15/18 15:30 INR 1.6 (0.9-1.2) H 03/15/18 15:30 APTT 32.8 Seconds (25.6-37.1) 03/15/18 15:30 - Constitutional Appears: Non-toxic, No Acute Distress, Cachectic (BMI of 18.2; ), Chronically Ill - Head Exam Head Exam: NORMAL INSPECTION Additional comments: + ecchymosis present on head from fall. +1 laceration on left side of head, healing. - Eye Exam Eye Exam: Normal appearance - ENT Exam ENT Exam: Mucous Membranes Moist, Normal Oropharynx - Neck Exam Neck Exam: Normal Inspection. absent: Lymphadenopathy, Tenderness, Thyromegaly - Respiratory Exam Respiratory Exam: Clear to Ausculation Bilateral, NORMAL BREATHING PATTERN. absent: Accessory Muscle Use, Chest Wall Tenderness, Decreased Breath Sounds, Prolonged Expiratory Phase, Rales, Rhonchi, Wheezes, Respiratory Distress, Stridor - Cardiovascular Exam Cardiovascular Exam: Irregular Rhythm, +S1, +S2. absent: Clicks, Diastolic murmur, Gallop, REGULAR RHYTHM, RRR, Rubs, +S4, Murmur - GI/Abdominal Exam GI & Abdominal Exam: Soft, Normal Bowel Sounds. absent: Firm, Guarding, Rigid, Tenderness, Mass, Organomegaly, Pulsatile Mass, Rebound - Extremities Exam Extremities Exam: Normal Inspection - Neurological Exam Neurological Exam: Alert, Awake, Oriented x3 - Psychiatric Exam Psychiatric exam: Normal Affect, Normal Mood - Skin Skin Exam: Dry, Intact, Normal Color, Warm Assessment and Plan (1) Syncope due to orthostatic hypotension Status: Acute (2) Orthostatic hypotension Status: Acute (3) Chronic a-fib Status: Acute (4) CHF (congestive heart failure) Status: Acute (5) BPH (benign prostatic hyperplasia) Status: Acute (6) Cachexia Status: Acute (7) DVT prophylaxis Status: Acute - Assessment and Plan (Free Text) Assessment: 82 yo male with h/o of Chronic AFib, Chronic Right Sided Pleural effusion and CHF brought by EMS after he fell on the floor beside the bathroom. Not sure if he lost consciousness. Patient was recently discharged about 2 weeks ago because of LOC. Pacemaker was offered but patient refused. ECHO last December showed EF of 20-25% with global hypokinesia. Patient to undergo thoracentesis and to be discharged to TCU afterward for rehab. Plan: Syncope due to orthostatic hypotension (? Beta irving, ? Tricuspid regurg) - CT scan of head: no intracerebral bleed - Troponins negative x3 - severe TR on ECHO as per instrument technologist - cardiology consult with Dr Velasquez (covering for Dr David) appreciated Orthostatic Hypotension possibly secondary to Tamsulosin - Continue gentle hydration - Discontinued metoprolol because of bradycardia - Discontinued Tamsulosin because of orthostatic hypotension - Consider Midodrine? Chronic AFib -rate controlled -Metoprolol discontinued due to bradycardia -Eliquis discontinued due history of two falls. -Patient started on aspirin 81mg daily. CHF -secondary to systolic dysfunction; EF: 20-25% -discontinued Lasix due to severe tricuspid regurgitation -discontinued Aldactone due to hyperkalemia -discontinued Metoprolol due to bradycardia BPH -Tamsulosin discontinued due to orthostatic hypotension -Continue Finasteride -Advised patient to be aware of postural hypotension and be careful when suddenly rising up Cachexia: BMI of 18.2 Moderate protein malnutrition. DVT prophylaxis: -Patients INR: 1.6 given he was Eliquis previously.
[2018-03-19] MEDS: Latanoprost 0.005% Opht SOUTION OU SCH (21:31)
[2018-03-20 05:32] LABS: BASO % 0.2 % (0.0-2.0); EOS # 0.1 K/uL (0.0-0.7); EOS % 2.3 % (0.0-4.0); HEMOGLOBIN 12.7 g/dL (12.0-18.0); INR 1.2; LYMPH # 0.9 K/uL (1.0-4.3); LYMPH % 14.6 % (20.0-40.0); MEAN CELL VOLUME 99.3 fl (80.0-94.0); MEAN CORPUSCULAR HEMOGLOBIN 33.7 pg (27.0-31.0); MEAN CORPUSCULAR HGB CONC 33.9 g/dL (33.0-37.0); MEAN PLATELET VOLUME 7.4 fl (7.2-11.7); MONO # 0.7 K/uL (0.0-0.8); NEUT # 4.5 K/uL (1.8-7.0); NEUT % 71.9 % (50.0-75.0); NRBC % 0.1 % (0.0-0.0); PROTHROMBIN TIME 13.8 Seconds (9.8-13.1); RBC 3.77 Mil/uL (4.40-5.90); RED CELL DISTRIBUTION WIDTH 15.3 % (11.5-14.5); WHITE BLOOD COUNT 6.3 K/uL (4.8-10.8)
[2018-03-20] MEDS: Bacitracin OINT 15GM TOP SCH (08:52)
[2018-03-20] MEDS: Pantoprazole 40 mg EC Tab PO SCH (08:52)
--- NOTE | 2018-03-20 10:48 | CP.PCM.PN ---
<Álvaro Zuñiga - Last Filed: 03/20/18 12:48> Subjective - Subjective Subjective: Patient evaluated and examined during morning rounds today. Patient sitting comfortably in chair. No acute distress. Patient off of tamsulosin, he reports worsening urinary retention Neck is supple, trachea midline. No dullness over the anterior chest, + dullness posteriorly on the right. Breath sounds are absent in the right base. No rales or wheezes, no bronchial breathing No LE edema. V/Q Scan on 03/18/18: Low probability PE US guided right thoracentesis today, Will repeat CXR after procedure. Consider transfer to TCU subsequently Consider Chest PT in TCU. Objective - Vital Signs/Intake and Output Vital Signs (last 24 hours): Temp Pulse Resp BP Pulse Ox 98.2 F 98 H 20 99/70 L 100 03/20/18 11:52 03/20/18 12:05 03/20/18 12:05 03/20/18 12:05 03/20/18 12:05 - Medications Medications: Current Medications Aspirin (Ecotrin) 81 mg PO DAILY [facility] Last Admin: 03/19/18 08:31 Dose: 81 mg Bacitracin (Bacitracin Oint) 1 applic TOP BID [facility] Last Admin: 03/20/18 08:52 Dose: 1 applic Finasteride (Proscar) 5 mg PO DAILY [facility] Last Admin: 03/20/18 08:52 Dose: 5 mg Latanoprost (Xalatan Opht) 1 drop OU HS [facility] Last Admin: 03/19/18 21:31 Dose: 1 drop Pantoprazole Sodium (Protonix Ec Tab) 40 mg PO DAILY [facility] Last Admin: 03/20/18 08:52 Dose: 40 mg Timolol Maleate (Timoptic 0.5% Ophth Soln) 1 drop OU DAILY [facility] Last Admin: 03/20/18 08:52 Dose: 1 drop - Labs Labs: 03/20/18 04:20 03/19/18 04:20 PT 13.8 Seconds (9.8-13.1) H 03/20/18 04:20 INR 1.2 03/20/18 04:20 APTT 32.8 Seconds (25.6-37.1) 03/15/18 15:30 <Fady Briscoe - Last Filed: 03/20/18 15:57> Subjective - Date & Time of Evaluation Date of Evaluation: 03/20/18 Time of Evaluation: 10:47 - Subjective Subjective: The patient was seen on rounds in telemetry with the resident this morning. He was examined and physical findings were discussed. A plan of care was agreed upon. The patient did notify us of some increased urinary hesitancy since discontinuation of his TAMSULOSIN. This will be restarted at a dose of 0.4 mg once daily after supper. Thoracentesis is planned for today. Objective - Vital Signs/Intake and Output Vital Signs (last 24 hours): Temp Pulse Resp BP Pulse Ox 98 F 64 20 127/74 99 03/20/18 08:00 03/20/18 08:00 03/20/18 08:00 03/20/18 08:00 03/20/18 08:00 - Medications Medications: Current Medications Aspirin (Ecotrin) 81 mg PO DAILY [facility] Last Admin: 03/19/18 08:31 Dose: 81 mg Bacitracin (Bacitracin Oint) 1 applic TOP BID [facility] Last Admin: 03/20/18 08:52 Dose: 1 applic Finasteride (Proscar) 5 mg PO DAILY [facility] Last Admin: 03/20/18 08:52 Dose: 5 mg Latanoprost (Xalatan Opht) 1 drop OU HS [facility] Last Admin: 03/19/18 21:31 Dose: 1 drop Pantoprazole Sodium (Protonix Ec Tab) 40 mg PO DAILY [facility] Last Admin: 03/20/18 08:52 Dose: 40 mg Timolol Maleate (Timoptic 0.5% Ophth Soln) 1 drop OU DAILY [facility] Last Admin: 03/20/18 08:52 Dose: 1 drop - Labs Labs: 03/20/18 04:20 03/19/18 04:20 PT 13.8 Seconds (9.8-13.1) H 03/20/18 04:20 INR 1.2 03/20/18 04:20 APTT 32.8 Seconds (25.6-37.1) 03/15/18 15:30 Assessment and Plan (1) Atrial fibrillation Status: Chronic (2) Pleural effusion Status: Chronic (3) Chronic systolic congestive heart failure Status: Chronic (4) Severe tricuspid regurgitation by prior echocardiogram Status: Chronic
--- NOTE | 2018-03-20 11:06 | CP.PCM.PN ---
Subjective - Date & Time of Evaluation Date of Evaluation: 03/20/18 Time of Evaluation: 09:00 - Subjective Subjective: Feeling much better Sat up without dizziness for hours yesterday Telemetry shows A Fib at 80-90 BPM BP 100/70 mm Hg lying down 84/50 mm Hg standing up Going for Rt pleural tap today Will add Midodrin for BP support May go to TCU Objective - Vital Signs/Intake and Output Vital Signs (last 24 hours): Temp Pulse Resp BP Pulse Ox 98 F 64 20 127/74 99 03/20/18 08:00 03/20/18 08:00 03/20/18 08:00 03/20/18 08:00 03/20/18 08:00 - Medications Medications: Current Medications Aspirin (Ecotrin) 81 mg PO DAILY [facility] Last Admin: 03/19/18 08:31 Dose: 81 mg Bacitracin (Bacitracin Oint) 1 applic TOP BID [facility] Last Admin: 03/20/18 08:52 Dose: 1 applic Finasteride (Proscar) 5 mg PO DAILY [facility] Last Admin: 03/20/18 08:52 Dose: 5 mg Latanoprost (Xalatan Opht) 1 drop OU HS [facility] Last Admin: 03/19/18 21:31 Dose: 1 drop Pantoprazole Sodium (Protonix Ec Tab) 40 mg PO DAILY [facility] Last Admin: 03/20/18 08:52 Dose: 40 mg Timolol Maleate (Timoptic 0.5% Ophth Soln) 1 drop OU DAILY [facility] Last Admin: 03/20/18 08:52 Dose: 1 drop - Labs Labs: 03/20/18 04:20 03/19/18 04:20 PT 13.8 Seconds (9.8-13.1) H 03/20/18 04:20 INR 1.2 03/20/18 04:20 APTT 32.8 Seconds (25.6-37.1) 03/15/18 15:30
[2018-03-20] MEDS ORDERED: Lidocaine Hydrochloride 5 ML INJ ONE (11:38)
[2018-03-20 11:54] VITALS: O2SAT 100
--- NOTE | 2018-03-20 12:03 | PCM.SURG1 ---
Surgeon's Initial Post Op Note - Surgeon's Notes Surgeon: Adal Starks MD Camp Maintenance Supervisor: NONE Type of Anesthesia: Local Pre-Operative Diagnosis: Right pleural effusion Operative Findings: US showed moderate right pleural effusion Post-Operative Diagnosis: Right pleural effusion Operation Performed: US guided right thoracentesis Specimen/Specimens Removed: 650 cc lillie fluid Estimated Blood Loss: EBL {In ML}: 0 Blood Products Given: N/A Drains Used: No Drains Post-Op Condition: Fair Date of Surgery/Procedure: 03/20/18 Time of Surgery/Procedure: 12:00
[2018-03-20 12:06] VITALS: BP 99/70; PULSE 98; RESP 20
[2018-03-20 12:39] LABS: BODY FLUID TYPE PLEURAL/THORACENTESI
[2018-03-20 13:15] LABS: TOTAL PROTEIN,BODY FLUID 2.2 g/dL (NONE ESTABLISHED)
[2018-03-20 13:17] VITALS: TEMP 97.2
[2018-03-20 13:24] LABS: BF GROSS APPEARANCE CLOUDY (CLEAR)
--- NOTE | 2018-03-20 13:32 | US ---
PROCEDURE: Date of procedure: 03/20/2018 Procedure: 1. Ultrasound-guided Right thoracentesis, CPT 64984 Medications: 5 cc 1% Lidocaine HISTORY: Right pleural effusion, shortness of breath TECHNIQUE: Following informed consent ,the Patients' right chest was marked. Procedure time-out was called, and the patient was placed in the sitting position and limited ultrasound showed a large right effusion. The patient's right back was prepped and draped in the usual sterile fashion. After the skin was anesthetized with lidocaine, a drainage catheter was advanced under ultrasound guidance into the pleural space. Ultrasound-guided thoracentesis was performed. A total of 600 cubic centimeters of lillie-colored fluid removed without complication. A Xeroform dressing was applied. IMPRESSION: Ultrasound guided Right thoracentesis. There were no immediate complications.
[2018-03-20 13:33] LABS: BODY FLUID MONO/MACROPHAGE 12 % (0-0); BODY FLUID TOTAL COUNT 100 (0-0)
--- NOTE | 2018-03-20 13:59 | RAD ---
Date of service: 03/20/2018 PROCEDURE: CHEST RADIOGRAPH, 1 VIEW HISTORY: Status post right thoracentesis. COMPARISON: 03/18/2018 FINDINGS: LUNGS: There is currently less obscuration at the right costophrenic angle. Interval decreased right pleural effusion with interval increased loculated pneumothorax or other iatrogenically introduced air firmer prior thoracentesis are some considerations. No worsening consolidation suggested. PLEURA: There is currently less obscuration at the right costophrenic angle. Interval decreased right pleural effusion with interval increased loculated pneumothorax or other iatrogenically introduced air firmer prior thoracentesis are some considerations. No worsening consolidation suggested. Biapical pleural thickening similar. CARDIOVASCULAR: Cardiomegaly. Pulmonary vasculature probably top-normal. Bilateral hyperaeration likely relating to background COPD/ emphysema. OSSEOUS STRUCTURES: Scoliosis and spondylosis as before. VISUALIZED UPPER ABDOMEN: Normal. OTHER FINDINGS: None. IMPRESSION: Interval decrease right pleural effusion. -right lateral lung base with interval increased gas here in part loculated pneumothorax and/or iatrogenically introduced are some considerations. To better mapped this, consider CT of the chest. - this can be compared with the prior CT chest dated 12/27/2017
--- NOTE | 2018-03-20 15:13 | PQF ---
PROVIDER RESPONSE TEXT: Left Buttock and Sacrum Pressure Ulcer Stage I ( POA) REVIEWER QUERY TEXT: Pressure Ulcer Type Pressure ulcer is documented in the Medical Record. Please specify the location, present on admission status and stage: Location and laterality of pressure ulcer(s): POA status of each pressure ulcer: -- Not present on admission -- Present on admission -- Other -- Clinically unable to determine -- Unknown Stage of each pressure ulcer (National Pressure Ulcer Advisory Panel definitions): -- Stage I: Intact skin with non-blanchable redness of a localized area -- Stage II: Partial thickness skin loss involving dermis with a shallow open ulcer or an open serum -filled blister -- Stage III: Full thickness skin loss involving damage or necrosis of subcutaneous tissue -- Stage IV: Full thickness skin loss with exposed bone, tendon or muscle -- Unstageable: Full thickness tissue loss in which the base of the ulcer is covered by slough and/o r eschar in the wound bed The patient's Clinical Indicators include: Nursing database Pressure Ulcer Present: Yes but there is NO documentation of the site or description of ulcer. 03/19/18 silver holloware assembler: Pressure Ulcer Left Buttock Stage I and Sacrum Stage I Query created by: Taylor Booth on 03/20/2018 6:46 AM Electronically signed by: Brittany Abbott MD 03/20/2018 3:10 PM
--- NOTE | 2018-03-20 15:22 | CP.PCM.DIS ---
<Mary Jane Grey - Last Filed: 03/20/18 15:51> Provider - Provider Date of Admission: 03/15/18 18:06 Attending physician: Seun Hinds MD Time Spent in preparation of Discharge (in minutes): 15 Diagnosis - Discharge Diagnosis (1) BPH (benign prostatic hyperplasia) Status: Acute (2) CHF (congestive heart failure) Status: Acute (3) Cachexia Status: Acute (4) Chronic a-fib Status: Acute (5) Orthostatic hypotension Status: Acute (6) Syncope due to orthostatic hypotension Status: Acute (7) Atrial fibrillation Status: Chronic Priority: High (8) Pleural effusion Status: Chronic Priority: High Comment: worsening of chronic pleural effusion Hospital Course - Lab Results Lab Results: Most Recent Lab Values WBC 6.3 K/uL (4.8-10.8) 03/20/18 04:20 RBC 3.77 Mil/uL (4.40-5.90) L 03/20/18 04:20 Hgb 12.7 g/dL (12.0-18.0) 03/20/18 04:20 Hct 37.4 % (35.0-51.0) 03/20/18 04:20 MCV 99.3 fl (80.0-94.0) H 03/20/18 04:20 MCH 33.7 pg (27.0-31.0) H 03/20/18 04:20 MCHC 33.9 g/dL (33.0-37.0) 03/20/18 04:20 RDW 15.3 % (11.5-14.5) H 03/20/18 04:20 Plt Count 155 K/uL (130-400) 03/20/18 04:20 MPV 7.4 fl (7.2-11.7) 03/20/18 04:20 Neut % (Auto) 71.9 % (50.0-75.0) 03/20/18 04:20 Lymph % (Auto) 14.6 % (20.0-40.0) L 03/20/18 04:20 Meriwether % (Auto) 11.0 % (0.0-10.0) H 03/20/18 04:20 Eos % (Auto) 2.3 % (0.0-4.0) 03/20/18 04:20 Baso % (Auto) 0.2 % (0.0-2.0) 03/20/18 04:20 Neut # (Auto) 4.5 K/uL (1.8-7.0) 03/20/18 04:20 Lymph # (Auto) 0.9 K/uL (1.0-4.3) L 03/20/18 04:20 Meriwether # (Auto) 0.7 K/uL (0.0-0.8) 03/20/18 04:20 Eos # (Auto) 0.1 K/uL (0.0-0.7) 03/20/18 04:20 Baso # (Auto) 0.0 K/uL (0.0-0.2) 03/20/18 04:20 Neutrophils % (Manual) 73 % (42-75) 03/15/18 15:30 Band Neutrophils % 4 % (0-2) H 03/15/18 15:30 Lymphocytes % (Manual) 15 % (20-50) L 03/15/18 15:30 Monocytes % (Manual) 8 % (0-10) 03/15/18 15:30 Toxic Granulation Present 03/15/18 15:30 Platelet Estimate Normal (NORMAL) 03/15/18 15:30 Macrocytosis (manual) Slight 03/15/18 15:30 PT 13.8 Seconds (9.8-13.1) H 03/20/18 04:20 INR 1.2 03/20/18 04:20 APTT 32.8 Seconds (25.6-37.1) 03/15/18 15:30 pO2 16 mm/Hg (30-55) L 03/15/18 15:52 VBG pH 7.35 (7.32-7.43) 03/15/18 15:52 VBG pCO2 61 mmHg (40-60) H 03/15/18 15:52 VBG HCO3 27.1 mmol/L 03/15/18 15:52 VBG Total CO2 35.6 mmol/L (22-28) H 03/15/18 15:52 VBG O2 Sat (Calc) 17.9 % (40-65) L 03/15/18 15:52 VBG Base Excess 5.9 mmol/L (0.0-2.0) H 03/15/18 15:52 VBG Potassium 4.6 mmol/L (3.6-5.2) 03/15/18 15:52 Sodium 135.0 mmol/L (132-148) 03/15/18 15:52 Chloride 99.0 mmol/L (98-107) 03/15/18 15:52 Glucose 100 mg/dL (75-110) 03/15/18 15:52 Lactate 1.4 mmol/L (0.7-2.1) 03/15/18 15:52 FiO2 21.0 % 03/15/18 15:52 Sodium 139 mmol/l (132-148) 03/19/18 04:20 Potassium 4.3 MMOL/L (3.6-5.0) 03/19/18 04:20 Chloride 108 mmol/L (98-107) H 03/19/18 04:20 Carbon Dioxide 25 mmol/L (22-30) 03/19/18 04:20 Anion Gap 10 (10-20) 03/19/18 04:20 BUN 33 mg/dl (9-20) H 03/19/18 04:20 Creatinine 1.2 mg/dl (0.8-1.5) 03/19/18 04:20 Est GFR ( Amer) > 60 03/19/18 04:20 Est GFR (Non-Af Amer) 58 03/19/18 04:20 POC Glucose (mg/dL) 136 mg/dL (65-110) H 03/15/18 15:25 Random Glucose 117 mg/dL (75-110) H 03/19/18 04:20 Calcium 8.2 mg/dL (8.4-10.2) L 03/19/18 04:20 Total Bilirubin 1.7 mg/dl (0.2-1.3) H 03/15/18 15:30 AST 45 U/L (17-59) 03/15/18 15:30 ALT 38 U/L (21-72) 03/15/18 15:30 Alkaline Phosphatase 156 U/L (38-126) H 03/15/18 15:30 Troponin I < 0.0120 ng/mL (0.00-0.120) 03/16/18 05:20 Total Protein 9.0 G/DL (6.3-8.2) H 03/15/18 15:30 Albumin 4.2 g/dL (3.5-5.0) 03/15/18 15:30 Globulin 4.8 gm/dL (2.2-3.9) H 03/15/18 15:30 Albumin/Globulin Ratio 0.9 (1.0-2.1) L 03/15/18 15:30 Venous Blood Potassium 4.6 mmol/L (3.6-5.2) 03/15/18 15:52 Fluid Source Pleural/thoracentesi 03/20/18 12:30 Fluid Appearance Cloudy (CLEAR) 03/20/18 12:30 Fluid WBC 474.0 /mm3 (0.0-300.0) H 03/20/18 12:30 Fluid RBC 31559.0 /mm3 (0.0-0.0) H 03/20/18 12:30 Fluid Tot Cell Count 100 (0-0) H 03/20/18 12:30 Fluid Neutrophils 5.0 % (0-0) H 03/20/18 12:30 Fluid Lymphocytes 83.0 % (0-0) H 03/20/18 12:30 Fld Monocyte/Macrophag 12 % (0-0) H 03/20/18 12:30 Fluid Glucose 67 mg/dL (NONE ESTABLISHED) 03/20/18 12:30 Fluid Total Protein 2.2 g/dL (NONE ESTABLISHED) 03/20/18 12:30 Fluid LDH 288 IU (NONE ESTABLISHED) 03/20/18 12:30 Fluid Comment Red 03/20/18 12:30 - Hospital Course Hospital Course: 82 yo male with h/o of Chronic AFib, Chronic Right Sided Pleural effusion and CHF was brought in by EMS after falling to the floor near restroom. Patient was uncertain of whether consciousness was lost at that time. Patient was recently discharged 2 weeks ago because of loss of consciousness. At that time, a pacemaker was offered but patient refused. ECHO last December showed EF of 20-25% with global hypokinesia. Patient to undergo thoracentesis and to be discharged to TCU afterward for rehab. Plan: Syncope due to orthostatic hypotension (? Beta irving, ? Tricuspid regurg) - CT scan of head: no intracerebral bleed - Troponins negative x3 - severe TR on ECHO as per assistant city attorney - cardiology consult with Dr Velasquez (covering for Dr David) appreciated Orthostatic Hypotension possibly secondary to Tamsulosin - Continue gentle hydration - Discontinued metoprolol because of bradycardia - Discontinued Tamsulosin because of orthostatic hypotension - Consider Midodrine? Chronic AFib -rate controlled -Metoprolol discontinued due to bradycardia -Eliquis discontinued due history of two falls. -Patient started on aspirin 81mg daily. CHF -secondary to systolic dysfunction; EF: 20-25% -discontinued Lasix due to severe tricuspid regurgitation -discontinued Aldactone due to hyperkalemia -discontinued Metoprolol due to bradycardia BPH -Tamsulosin discontinued due to orthostatic hypotension -Continue Finasteride -Advised patient to be aware of postural hypotension and be careful when suddenly rising up Cachexia: BMI of 18.2 Moderate protein malnutrition. DVT prophylaxis: -Patients INR: 1.6 given he was Eliquis previously. Discharge Exam - Head Exam Additional comments: frontal and periorbital bruising noted - Eye Exam Eye Exam: EOMI - Neck Exam Neck exam: Full Rom - Respiratory Exam Respiratory Exam: Decreased Breath Sounds - Cardiovascular Exam Cardiovascular Exam: REGULAR RHYTHM, +S1, +S2 - GI/Abdominal Exam GI & Abdominal Exam: Normal Bowel Sounds, Soft - Extremities Exam Extremities exam: normal inspection - Back Exam Additional comments: no cva tenderness - Additional Findings Additional findings: cachetic appearing Discharge Plan - Discharge Medications Prescriptions: Midodrine [Proamatine] 2.5 mg PO BID #1 tab Tamsulosin [Flomax] 0.4 mg PO HS #1 cap - Follow Up Plan Condition: IMPROVED Disposition: TRANSF TO SNF Instructions: Pleural Effusion (DC), Syncope (Fainting) (DC), Heart Failure (DC ), Heart Failure (GEN), Atrial Fibrillation (DC), Pacemaker (DC), Pacemaker (GEN ), Pulmonary Edema (DC), Pulmonary Edema (GEN), Ascites (DC), Ascites (GEN) Additional Instructions: d/c pt to TCU Referrals: Brandon David MD [Staff Provider] - Fady Briscoe MD [Family Provider] - <Brittany Abbott - Last Filed: 03/20/18 16:47> Provider - Provider Date of Admission: 03/15/18 18:06 Attending physician: Seun Hinds MD Hospital Course - Lab Results Lab Results: Most Recent Lab Values WBC 6.3 K/uL (4.8-10.8) 03/20/18 04:20 RBC 3.77 Mil/uL (4.40-5.90) L 03/20/18 04:20 Hgb 12.7 g/dL (12.0-18.0) 03/20/18 04:20 Hct 37.4 % (35.0-51.0) 03/20/18 04:20 MCV 99.3 fl (80.0-94.0) H 03/20/18 04:20 MCH 33.7 pg (27.0-31.0) H 03/20/18 04:20 MCHC 33.9 g/dL (33.0-37.0) 03/20/18 04:20 RDW 15.3 % (11.5-14.5) H 03/20/18 04:20 Plt Count 155 K/uL (130-400) 03/20/18 04:20 MPV 7.4 fl (7.2-11.7) 03/20/18 04:20 Neut % (Auto) 71.9 % (50.0-75.0) 03/20/18 04:20 Lymph % (Auto) 14.6 % (20.0-40.0) L 03/20/18 04:20 Meriwether % (Auto) 11.0 % (0.0-10.0) H 03/20/18 04:20 Eos % (Auto) 2.3 % (0.0-4.0) 03/20/18 04:20 Baso % (Auto) 0.2 % (0.0-2.0) 03/20/18 04:20 Neut # (Auto) 4.5 K/uL (1.8-7.0) 03/20/18 04:20 Lymph # (Auto) 0.9 K/uL (1.0-4.3) L 03/20/18 04:20 Meriwether # (Auto) 0.7 K/uL (0.0-0.8) 03/20/18 04:20 Eos # (Auto) 0.1 K/uL (0.0-0.7) 03/20/18 04:20 Baso # (Auto) 0.0 K/uL (0.0-0.2) 03/20/18 04:20 Neutrophils % (Manual) 73 % (42-75) 03/15/18 15:30 Band Neutrophils % 4 % (0-2) H 03/15/18 15:30 Lymphocytes % (Manual) 15 % (20-50) L 03/15/18 15:30 Monocytes % (Manual) 8 % (0-10) 03/15/18 15:30 Toxic Granulation Present 03/15/18 15:30 Platelet Estimate Normal (NORMAL) 03/15/18 15:30 Macrocytosis (manual) Slight 03/15/18 15:30 PT 13.8 Seconds (9.8-13.1) H 03/20/18 04:20 INR 1.2 03/20/18 04:20 APTT 32.8 Seconds (25.6-37.1) 03/15/18 15:30 pO2 16 mm/Hg (30-55) L 03/15/18 15:52 VBG pH 7.35 (7.32-7.43) 03/15/18 15:52 VBG pCO2 61 mmHg (40-60) H 03/15/18 15:52 VBG HCO3 27.1 mmol/L 03/15/18 15:52 VBG Total CO2 35.6 mmol/L (22-28) H 03/15/18 15:52 VBG O2 Sat (Calc) 17.9 % (40-65) L 03/15/18 15:52 VBG Base Excess 5.9 mmol/L (0.0-2.0) H 03/15/18 15:52 VBG Potassium 4.6 mmol/L (3.6-5.2) 03/15/18 15:52 Sodium 135.0 mmol/L (132-148) 03/15/18 15:52 Chloride 99.0 mmol/L (98-107) 03/15/18 15:52 Glucose 100 mg/dL (75-110) 03/15/18 15:52 Lactate 1.4 mmol/L (0.7-2.1) 03/15/18 15:52 FiO2 21.0 % 03/15/18 15:52 Sodium 139 mmol/l (132-148) 03/19/18 04:20 Potassium 4.3 MMOL/L (3.6-5.0) 03/19/18 04:20 Chloride 108 mmol/L (98-107) H 03/19/18 04:20 Carbon Dioxide 25 mmol/L (22-30) 03/19/18 04:20 Anion Gap 10 (10-20) 03/19/18 04:20 BUN 33 mg/dl (9-20) H 03/19/18 04:20 Creatinine 1.2 mg/dl (0.8-1.5) 03/19/18 04:20 Est GFR ( Amer) > 60 03/19/18 04:20 Est GFR (Non-Af Amer) 58 03/19/18 04:20 POC Glucose (mg/dL) 136 mg/dL (65-110) H 03/15/18 15:25 Random Glucose 117 mg/dL (75-110) H 03/19/18 04:20 Calcium 8.2 mg/dL (8.4-10.2) L 03/19/18 04:20 Total Bilirubin 1.7 mg/dl (0.2-1.3) H 03/15/18 15:30 AST 45 U/L (17-59) 03/15/18 15:30 ALT 38 U/L (21-72) 03/15/18 15:30 Alkaline Phosphatase 156 U/L (38-126) H 03/15/18 15:30 Troponin I < 0.0120 ng/mL (0.00-0.120) 03/16/18 05:20 Total Protein 9.0 G/DL (6.3-8.2) H 03/15/18 15:30 Albumin 4.2 g/dL (3.5-5.0) 03/15/18 15:30 Globulin 4.8 gm/dL (2.2-3.9) H 03/15/18 15:30 Albumin/Globulin Ratio 0.9 (1.0-2.1) L 03/15/18 15:30 Venous Blood Potassium 4.6 mmol/L (3.6-5.2) 03/15/18 15:52 Fluid Source Pleural/thoracentesi 03/20/18 12:30 Fluid Appearance Cloudy (CLEAR) 03/20/18 12:30 Fluid WBC 474.0 /mm3 (0.0-300.0) H 03/20/18 12:30 Fluid RBC 64970.0 /mm3 (0.0-0.0) H 03/20/18 12:30 Fluid Tot Cell Count 100 (0-0) H 03/20/18 12:30 Fluid Neutrophils 5.0 % (0-0) H 03/20/18 12:30 Fluid Lymphocytes 83.0 % (0-0) H 03/20/18 12:30 Fld Monocyte/Macrophag 12 % (0-0) H 03/20/18 12:30 Fluid Glucose 67 mg/dL (NONE ESTABLISHED) 03/20/18 12:30 Fluid Total Protein 2.2 g/dL (NONE ESTABLISHED) 03/20/18 12:30 Fluid LDH 288 IU (NONE ESTABLISHED) 03/20/18 12:30 Fluid Comment Red 03/20/18 12:30 Attending/Attestation - Attestation I have personally seen and examined this patient.: Yes I have fully participated in the care of the patient.: Yes I have reviewed all pertinent clinical information, including history, physical exam and plan: Yes Notes (Text): Syncope sec Orthostatic Hypotension - started Midodrine 2.5 mg daily - cont to monitor Worsening of Chronic Pleural Effusion , s/p Thoracentesis obtained 600 ml of lillie Pleural fluid -rpt CXR reveiwed with Dr Gonzalez and Dr Briscoe - no Pneumothorax - pt cleared for d/c to TCU
== END 2018-03-20 15:53 | DRG 312 ==
LOC: H.ER 14:44 → H.ERHOLD 18:06 → H.TEL 03-16 15:08
PROC: 0W993ZZ Drainage of Right Pleural Cavity, Percutaneous Approach (ICD-10-PCS; principal; 2018-03-19)
DX: I95.2 Hypotension due to drugs (principal); I50.22 Chronic systolic (congestive) heart failure; J91.8 Pleural effusion in other conditions classified elsewhere; R64 Cachexia; Z68.1 Body mass index [BMI] 19.9 or less, adult; E44.0 Moderate protein-calorie malnutrition; T44.6X5A Adverse effect of alpha-adrenoreceptor antagonists, initial encounter; E87.5 Hyperkalemia; I48.2 Chronic atrial fibrillation; I07.1 Rheumatic tricuspid insufficiency; L89.321 Pressure ulcer of left buttock, stage 1; L89.151 Pressure ulcer of sacral region, stage 1; R29.6 Repeated falls; N40.1 Benign prostatic hyperplasia with lower urinary tract symptoms; Z91.81 History of falling; Z79.01 Long term (current) use of anticoagulants; Z79.82 Long term (current) use of aspirin; Z90.49 Acquired absence of other specified parts of digestive tract; Y92.009 Unspecified place in unspecified non-institutional (private) residence as the place of occurrence of the external cause

== ENCOUNTER 2018-03-20 15:15 | Inpatient (IN) | payer OTHER, MEDICARE ==
[2018-03-20 16:02] VITALS: BMI 17.7
[2018-03-20] MEDS: Bacitracin OINT 15GM TOP SCH (17:42)
[2018-03-20] MEDS: Latanoprost 0.005% Opht SOUTION OU SCH (21:51)
[2018-03-21] MEDS: Pantoprazole 40 mg EC Tab PO SCH (08:05)
[2018-03-21] MEDS: Bacitracin OINT 15GM TOP SCH ×2 (08:05→21:51)
--- NOTE | 2018-03-21 11:13 | CP.PCM.PN ---
<Álvaro Zuñiga - Last Filed: 03/21/18 12:39> Subjective - Subjective Subjective: Patient evaluated and examined during morning rounds today in TCU. Patient sitting comfortably in bed. No acute distress. He reports improved breathing since thoracocentesis yesterday. Patient still reports urinary retention and trouble initiating urinary stream. 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 Patient did physical therapy yesterday, still reports mild lightheadedness with standing. VS stable. Neck is supple, trachea midline. No dullness over the anterior chest, + dullness posteriorly on the right. No rales or wheezes, no bronchial breathing No LE edema. Thoracocentesis done yesterday with improvement in symptoms. Pleural fluid culture pending. Repeat CXR reviewed. Pleural fluid exudative, etiology unclear for recurrent pleural effusion. Patient on Flomax 0.4 mg PO PC C/W current medications. C/W PT in TCU. Objective - Vital Signs/Intake and Output Vital Signs (last 24 hours): Temp Pulse Resp BP Pulse Ox 98.4 F 101 H 20 101/70 99 03/21/18 08:14 03/21/18 08:14 03/21/18 08:14 03/21/18 08:14 03/21/18 08:14 - Medications Medications: Current Medications Aspirin (Ecotrin) 81 mg PO DAILY [facility] Last Admin: 03/21/18 08:05 Dose: 81 mg Bacitracin (Bacitracin Oint) 1 applic TOP BID [facility] Last Admin: 03/21/18 08:05 Dose: 1 applic Finasteride (Proscar) 5 mg PO DAILY [facility] Last Admin: 03/21/18 08:05 Dose: 5 mg Latanoprost (Xalatan Opht) 1 drop OU HS [facility] Last Admin: 03/20/18 21:51 Dose: 1 drop Pantoprazole Sodium (Protonix Ec Tab) 40 mg PO DAILY [facility] Last Admin: 03/21/18 08:05 Dose: 40 mg Tamsulosin HCl (Flomax) 0.4 mg PO 1300 [facility] Timolol Maleate (Timoptic 0.5% Ophth Soln) 1 drop OU DAILY [facility] Last Admin: 03/21/18 08:05 Dose: 1 drop Assessment and Plan (1) Pleural effusion Status: Chronic (2) CHF (congestive heart failure) Status: Chronic (3) Atrial fibrillation Status: Chronic (4) Severe tricuspid regurgitation by prior echocardiogram Status: Chronic <Fady Briscoe - Last Filed: 03/21/18 14:12> Subjective - Date & Time of Evaluation Date of Evaluation: 03/21/18 Time of Evaluation: 11:13 - Subjective Subjective: The patient wqas seen and examined with the residents this morning on rounds. His physical exam was reviewed and a plan of care was formulated. I agree with the resident's note as entered in to the EMR. Objective - Vital Signs/Intake and Output Vital Signs (last 24 hours): Temp Pulse Resp BP Pulse Ox 98.4 F 101 H 20 101/70 99 03/21/18 08:14 03/21/18 08:14 03/21/18 08:14 03/21/18 08:14 03/21/18 08:14 - Medications Medications: Current Medications Aspirin (Ecotrin) 81 mg PO DAILY [facility] Last Admin: 03/21/18 08:05 Dose: 81 mg Bacitracin (Bacitracin Oint) 1 applic TOP BID [facility] Last Admin: 03/21/18 08:05 Dose: 1 applic Finasteride (Proscar) 5 mg PO DAILY [facility] Last Admin: 03/21/18 08:05 Dose: 5 mg Latanoprost (Xalatan Opht) 1 drop OU HS [facility] Last Admin: 03/20/18 21:51 Dose: 1 drop Pantoprazole Sodium (Protonix Ec Tab) 40 mg PO DAILY [facility] Last Admin: 03/21/18 08:05 Dose: 40 mg Tamsulosin HCl (Flomax) 0.4 mg PO 1300 [facility] Timolol Maleate (Timoptic 0.5% [facility]) 1 drop OU DAILY [facility] Last Admin: 03/21/18 08:05 Dose: 1 drop
--- NOTE | 2018-03-21 11:18 | RAD ---
Date of service: 03/21/2018 HISTORY: ff up for any Pneumothorax post Thoracentesis COMPARISON: Single frontal chest radiograph 03/20/2018. TECHNIQUE: Chest PA and lateral FINDINGS: LUNGS: No definite interval acute infiltrate although limited patchy density seen the right base on a chronic basis. The left lung remains unremarkable appearing. PLEURA: Mild right pleural effusion is reiterated with small right basilar pneumothorax likely a function of trapped lung. Mild apical pleural thickening reiterated. No definite left pleural effusion. CARDIOVASCULAR: Stable limited cardiomegaly. No pulmonary vascular congestion. OSSEOUS STRUCTURES: No significant abnormalities. VISUALIZED UPPER ABDOMEN: Normal. OTHER FINDINGS: None. IMPRESSION: Mild right pleural effusion not significantly changed as well as limited right basilar pneumothorax, likely a function of trapped lung. Limited medial basilar airspace disease appreciated. Stable mild cardiomegaly. No pulmonary vascular congestion.
--- NOTE | 2018-03-21 13:29 | CP.PCM.HP ---
History of Present Illness - History of Present Illness History of Present Illness: 82 yo male with h/o of Chronic AFib, Chronic Right Sided Pleural effusion and CHF brought by EMS after he fell on the floor beside the bathroom. Not sure if he lost consciousness. Patient was recently discharged about 2 weeks ago because of LOC. Pacemaker was offered but patient refused. ECHO last December showed EF of 20-25% with global hypokinesia. Patient underwent thoracentesis due to worsening of chronic pleural effusion during his inpatient admission. He is now admitted to TCU for continued rehabilitation and physical therapy. Flomax was discontinued by cardiology as it was felt this may be contributing to his orthostatic hypotension. Today he states that he feels well. He states that he is having occasional trouble with initiating urination but he is able to void well after it is initiated. No other complaints at present. Present on Admission - Present on Admission Any Indicators Present on Admission: No History of DVT/PE: No Review of Systems - Review of Systems Review of Systems: A 12 point review of systems was conducted and found to be negative other than what was mentioned in the HPI. Past Patient History - Infectious Disease Hx of Infectious Diseases: None - Tetanus Immunizations Tetanus Immunization: Unknown - Past Medical History & Family History Past Medical History?: Yes - Past Social History Smoking Status: Never Smoked - CARDIAC Hx Cardiac Disorders: Yes (A-Fib, CHF) Hx Atrial Fibrillation: Yes Hx Congestive Heart Failure: Yes Hx Peripheral Edema: Yes Other/Comment: s/p thoracentesis - PULMONARY Hx Respiratory Disorders: Yes Other/Comment: Pleural effusion - NEUROLOGICAL Hx Neurological Disorder: Yes Hx Syncope: Yes - HEENT Hx HEENT Problems: Yes Hx Glaucoma: Yes - RENAL Hx Chronic Kidney Disease: No - ENDOCRINE/METABOLIC Hx Endocrine Disorders: No - HEMATOLOGICAL/ONCOLOGICAL Hx Blood Disorders: No Hx AIDS: No Hx Human Immunodeficiency Virus (HIV): No - INTEGUMENTARY Hx Dermatological Problems: No - MUSCULOSKELETAL/RHEUMATOLOGICAL Hx Falls: Yes - GASTROINTESTINAL Hx Gastrointestinal Disorders: No - GENITOURINARY/GYNECOLOGICAL Hx Genitourinary Disorders: Yes Hx Prostate Problems: Yes (BPH) - PSYCHIATRIC Hx Psychophysiologic Disorder: No Hx Substance Use: No - SURGICAL HISTORY Hx Surgeries: Yes Hx Appendectomy: Yes - ANESTHESIA Hx Anesthesia: Yes Hx Anesthesia Reactions: No Hx Malignant Hyperthermia: No Has any member of the family had a problem w/ anesthesia?: No Meds Allergies/Adverse Reactions: Allergies Allergy/AdvReac Type Severity Reaction Status Date / Time No Known Allergies Allergy Verified 03/20/18 16:02 Physical Exam - Additional Findings Additional findings: Physical exam: Constitutional- cooperative, awake, alert Head- NC, frontal and periorbital bruising noted from fall. PERRL Eye- PERRL, EOMI ENT- normal exam, MMM. Neck- normal inspection, supple, no JVD Respiratory- CTAB, no wheezes rales rhonchi Cardiovascular- RRR, +S1, +S2 no MRG GI/Abdominal- normal bowel sounds, soft, no mass, no hsm Skin- warm, dry Extremities Exam- normal capillary refill, normal inspection Neurological Exam- alert, awake, oriented Psych- normal mood, normal affect Results - Vital Signs Recent Vital Signs: Last Vital Signs Temp 98.4 F 03/21/18 08:14 Pulse 101 H 03/21/18 08:14 Resp 20 03/21/18 08:14 BP 101/70 03/21/18 08:14 Pulse Ox 99 03/21/18 08:14 Assessment & Plan - Assessment and Plan (Free Text) Plan: 82 yo male with h/o of Chronic AFib, Chronic Right Sided Pleural effusion and CHF brought by EMS after he fell on the floor beside the bathroom. Not sure if he lost consciousness. Patient was recently discharged about 2 weeks ago because of LOC. Pacemaker was offered but patient refused. ECHO last December showed EF of 20-25% with global hypokinesia. Patient underwent thoracentesis due to worsening of chronic pleural effusion during his inpatient admission. He is now admitted to TCU for continued rehabilitation and physical therapy. Flomax was discontinued by cardiology as it was felt this may be contributing to his orthostatic hypotension. Syncope due to orthostatic hypotension (? Beta irving, ? Tricuspid regurg) - CT scan of head: no intracerebral bleed - Troponins negative x3 - severe TR on ECHO as per care rep - cardiology consult with Dr Velasquez appreciated - Started Midodrine 2.5 mg daily Orthostatic Hypotension possibly secondary to Tamsulosin - Continue gentle hydration - Discontinued metoprolol because of bradycardia - Discontinued Tamsulosin because of orthostatic hypotension Chronic AFib -rate controlled -Metoprolol discontinued due to bradycardia -Eliquis discontinued due history of two falls. -Patient started on aspirin 81mg daily. CHF with chronic pleural effusion, s/p thoracentesis -secondary to systolic dysfunction; EF: 20-25% -discontinued Lasix due to severe tricuspid regurgitation -discontinued Aldactone due to hyperkalemia -discontinued Metoprolol due to bradycardia BPH -Tamsulosin discontinued due to orthostatic hypotension -Continue Finasteride -Advised patient to be aware of postural hypotension and be careful when suddenly rising up Cachexia: BMI of 18.2 Moderate protein malnutrition. DVT prophylaxis: -Patients INR: 1.6 given he was Eliquis previously.
[2018-03-21] MEDS: Latanoprost 0.005% Opht SOUTION OU SCH (21:50)
[2018-03-22 06:56] LABS: HEMOGLOBIN 12.6 g/dL (12.0-18.0); MEAN CELL VOLUME 98.7 fl (80.0-94.0); MEAN CORPUSCULAR HEMOGLOBIN 33.7 pg (27.0-31.0); MEAN CORPUSCULAR HGB CONC 34.1 g/dL (33.0-37.0); RBC 3.73 Mil/uL (4.40-5.90); RED CELL DISTRIBUTION WIDTH 15.4 % (11.5-14.5); WHITE BLOOD COUNT 6.3 K/uL (4.8-10.8)
[2018-03-22 07:35] LABS: BLOOD UREA NITROGEN 24 mg/dl (9-20); CALCIUM 8.3 mg/dL (8.4-10.2); GFR AFRICAN-AMERICAN > 60; GFR NON-AFRICAN AMERICAN > 60
[2018-03-22] MEDS: Pantoprazole 40 mg EC Tab PO SCH (09:33)
[2018-03-22] MEDS: Bacitracin OINT 15GM TOP SCH ×2 (09:38→22:30)
--- NOTE | 2018-03-22 10:22 | CP.PCM.CON ---
History of Present Illness - History of Present Illness History of Present Illness: This 82-year-old man admitted to the transitional care unit is known to be through his recent hospitalization in the acute care section of this hospital for a syncopal episode as a consequence of severe hypotension secondary to aggressive diuretic therapy in face of atrial fibrillation and right ventricular failure. The patient was also taking 0.8 mg of Flomax for prostatism. He was taking a combination of metoprolol and Timoptic eyedrops. His diuretic therapy consisted of 80 mg of furosemide along with aldactone. The patient had tolerated discontinuation of Flomax initially but when Midodrin was added to support his systolic blood pressure the patient developed significant hesitancy in voiding. Midodrin was discontinued and the patient was kept on 0.4 mg of Flomax. The patient was able to stand up and participate in physical therapy yesterday without significant dyspnea. The patient has had a pleural tap couple of days back and approximately 650 mL of pleural fluid was removed from the right side. The patient does admit to an easier sense of inspiration. The patient has not had any pedal edema and he denies any orthopnea while he has been without diuretics. Physical examination shows an elderly emacerated man quite alert awake and coherent. Sitting up in a chair without any sense of lightheadedness. He is able to carry on a conversation. He breathes at 16 breaths per minute and has a heart rate of 74 bpm irregularly irregular. His systolic blood pressure sitting up in a chair was 94 mmHg and upon standing up was 84 mmHg. His jugular venous pressure showed prominent CV complexes due to severe tricuspid regurgitation. His extremities were warm and his nailbeds were pink. There was no central or peripheral cyanosis. There was no clubbing. There was no pedal edema. The air entry to the right base was much improved after pleural tap. There were no rales. There was an apical systolic murmur of tricuspid regurgitation. Abdomen was soft and liver and spleen are not palpable. His electrocardiogram of recent hospitalization was noted. His echocardiogram from December was noted which showed markedly dilated right atrium and an enlarged right ventricle with severe tricuspid regurgitation. His left ventricular systolic function was borderline low normal. His labs were noted. Impression: Recurrent syncope secondary to hypotension secondary to aggressive diuretic therapy in a patient with right ventricular failure and chronic atrial fibrillation. Benign prostatitic hypertrophy with significant LUTS. The patient has had significant volume replenishment. His diuretics have been withheld. so far he does not display any dyspnea or pedal edema. His beta blockers have been withheld and he continues to use Timoptic eyedrops. The patient tolerates a systolic blood pressure above 80 mmHg and I have instructed the nurses to continue physical therapy as long as systolic blood pressure is about 80 mmHg and somebody is in attendance to look out for any sense of lightheadedness. Past Patient History - Infectious Disease Hx of Infectious Diseases: None - Tetanus Immunizations Tetanus Immunization: Unknown - Past Medical History & Family History Past Medical History?: Yes - Past Social History Smoking Status: Never Smoked - CARDIAC Hx Cardiac Disorders: Yes (A-Fib, CHF) Hx Atrial Fibrillation: Yes Hx Congestive Heart Failure: Yes Hx Peripheral Edema: Yes Other/Comment: s/p thoracentesis - PULMONARY Hx Respiratory Disorders: Yes Other/Comment: Pleural effusion - NEUROLOGICAL Hx Neurological Disorder: Yes Hx Syncope: Yes - HEENT Hx HEENT Problems: Yes Hx Glaucoma: Yes - RENAL Hx Chronic Kidney Disease: No - ENDOCRINE/METABOLIC Hx Endocrine Disorders: No - HEMATOLOGICAL/ONCOLOGICAL Hx Blood Disorders: No Hx AIDS: No Hx Human Immunodeficiency Virus (HIV): No - INTEGUMENTARY Hx Dermatological Problems: No - MUSCULOSKELETAL/RHEUMATOLOGICAL Hx Falls: Yes - GASTROINTESTINAL Hx Gastrointestinal Disorders: No - GENITOURINARY/GYNECOLOGICAL Hx Genitourinary Disorders: Yes Hx Prostate Problems: Yes (BPH) - PSYCHIATRIC Hx Psychophysiologic Disorder: No Hx Substance Use: No - SURGICAL HISTORY Hx Surgeries: Yes Hx Appendectomy: Yes - ANESTHESIA Hx Anesthesia: Yes Hx Anesthesia Reactions: No Hx Malignant Hyperthermia: No Has any member of the family had a problem w/ anesthesia?: No Meds Allergies/Adverse Reactions: Allergies Allergy/AdvReac Type Severity Reaction Status Date / Time No Known Allergies Allergy Verified 03/20/18 16:02 - Medications Medications: Current Medications Aspirin (Ecotrin) 81 mg PO DAILY [facility] Last Admin: 03/22/18 09:34 Dose: 81 mg Bacitracin (Bacitracin Oint) 1 applic TOP BID@0900,2100 [facility] Last Admin: 03/22/18 09:38 Dose: 1 applic Finasteride (Proscar) 5 mg PO DAILY [facility] Last Admin: 03/22/18 09:34 Dose: 5 mg Latanoprost (Xalatan Opht) 1 drop OU HS [facility] Last Admin: 03/21/18 21:50 Dose: 1 drop Pantoprazole Sodium (Protonix Ec Tab) 40 mg PO DAILY [facility] Last Admin: 03/22/18 09:33 Dose: 40 mg Tamsulosin HCl (Flomax) 0.4 mg PO 1300 [facility] Last Admin: 03/21/18 12:21 Dose: 0.4 mg Timolol Maleate (Timoptic 0.5% Ophth Soln) 1 drop OU DAILY [facility] Last Admin: 03/22/18 09:33 Dose: 1 drop Results - Vital Signs Recent Vital Signs: Last Vital Signs Temp 98.1 F 03/22/18 08:15 Pulse 83 03/22/18 08:15 Resp 20 03/22/18 08:15 BP 102/70 03/22/18 08:15 Pulse Ox 97 03/22/18 08:15 - Labs Result Diagrams: 03/22/18 06:00 03/22/18 06:00 Labs: Laboratory Results - last 24 hr 03/22/18 03/22/18 06:00 06:00 WBC 6.3 RBC 3.73 L Hgb 12.6 Hct 36.9 MCV 98.7 H MCH 33.7 H MCHC 34.1 RDW 15.4 H Plt Count 171 Sodium 137 Potassium 4.3 Chloride 103 Carbon Dioxide 29 Anion Gap 9 L BUN 24 H Creatinine 0.8 Est GFR ( Amer) > 60 Est GFR (Non-Af Amer) > 60 Random Glucose 91 Calcium 8.3 L
--- NOTE | 2018-03-22 13:23 | CP.PCM.PN ---
<Álvaro Zuñiga - Last Filed: 03/22/18 19:42> Subjective - Subjective Subjective: Patient evaluated and examined during morning rounds today in TCU. Patient seems fatigued, eyes droopy, mouth breathing. According to patient he was sleepy. Reports doing physical therapy in the morning. Energy level improves after few minutes. Urinary retention still present. Initiation of urine stream improved but still reports dribbling VS stable. Neck is supple, trachea midline. No dullness over the anterior chest, + dullness posteriorly on the right. No rales or wheezes, no bronchial breathing + LE edema. S/P thoracocentesis: Pleural fluid cytology, culture pending Pleural fluid exudative, etiology unclear for recurrent pleural effusion. Will order Serum LDH, Pleural fluid ADA. Will order Quantiferon gold for further evaluation. Patient on Flomax 0.4 mg PO PC C/W current medications. C/W PT in TCU. Objective - Vital Signs/Intake and Output Vital Signs (last 24 hours): Temp Pulse Resp BP Pulse Ox 98.6 F 99 H 20 106/66 96 03/22/18 16:30 03/22/18 16:30 03/22/18 16:30 03/22/18 16:30 03/22/18 16:30 - Medications Medications: Current Medications Aspirin (Ecotrin) 81 mg PO DAILY [facility] Last Admin: 03/22/18 09:34 Dose: 81 mg Bacitracin (Bacitracin Oint) 1 applic TOP BID@0900,2100 [facility] Last Admin: 03/22/18 09:38 Dose: 1 applic Finasteride (Proscar) 5 mg PO DAILY [facility] Last Admin: 03/22/18 09:34 Dose: 5 mg Latanoprost (Xalatan Opht) 1 drop OU HS [facility] Last Admin: 03/21/18 21:50 Dose: 1 drop Multivitamins/Minerals (Therapeutic-M Tab) 1 tab PO DAILY [facility] Last Admin: 03/22/18 17:45 Dose: 1 tab Pantoprazole Sodium (Protonix Ec Tab) 40 mg PO DAILY [facility] Last Admin: 03/22/18 09:33 Dose: 40 mg Tamsulosin HCl (Flomax) 0.8 mg PO 1300 [facility] Last Admin: 03/22/18 14:36 Dose: 0.8 mg Timolol Maleate (Timoptic 0.5% Ophth Soln) 1 drop OU DAILY [facility] Last Admin: 03/22/18 09:33 Dose: 1 drop - Labs Labs: 03/22/18 06:00 03/22/18 06:00 Assessment and Plan (1) Pleural effusion Status: Chronic (2) CHF (congestive heart failure) Status: Chronic (3) Atrial fibrillation Status: Chronic (4) Severe tricuspid regurgitation by prior echocardiogram Status: Chronic <Fady Briscoe - Last Filed: 03/23/18 08:37> Subjective - Date & Time of Evaluation Date of Evaluation: 03/22/18 Time of Evaluation: 13:23 - Subjective Subjective: The patient was seen and examined with the residents on rounds in TCU. His physical findings were reviewed as well as any recent lab work. Pleural fluid specimens from his thoracentesis while on the acute medical floor where reviewed and the laboratory contacted to ensure that the specimen was received for cytology as well as adenosine deaminase level. A plan of care was formulated and agreed upon. I am in agreement with the resident's note as entered into the EMR. Objective - Vital Signs/Intake and Output Vital Signs (last 24 hours): Temp Pulse Resp BP Pulse Ox 98.1 F 83 20 102/70 97 03/22/18 08:15 03/22/18 08:15 03/22/18 08:15 03/22/18 08:15 03/22/18 08:15 - Medications Medications: Current Medications Aspirin (Ecotrin) 81 mg PO DAILY [facility] Last Admin: 03/22/18 09:34 Dose: 81 mg Bacitracin (Bacitracin Oint) 1 applic TOP BID@0900,2100 [facility] Last Admin: 03/22/18 09:38 Dose: 1 applic Finasteride (Proscar) 5 mg PO DAILY [facility] Last Admin: 03/22/18 09:34 Dose: 5 mg Latanoprost (Xalatan Opht) 1 drop OU HS [facility] Last Admin: 03/21/18 21:50 Dose: 1 drop Multivitamins/Minerals (Therapeutic-M Tab) 1 tab PO DAILY [facility] Pantoprazole Sodium (Protonix Ec Tab) 40 mg PO DAILY [facility] Last Admin: 03/22/18 09:33 Dose: 40 mg Tamsulosin HCl (Flomax) 0.8 mg PO 1300 [facility] Timolol Maleate (Timoptic 0.5% Ophth Soln) 1 drop OU DAILY [facility] Last Admin: 03/22/18 09:33 Dose: 1 drop - Labs Labs: 03/22/18 06:00 03/22/18 06:00
[2018-03-22] MEDS: Multivitamin With Minerals Tab PO SCH (17:45)
[2018-03-22] MEDS: Latanoprost 0.005% Opht SOUTION OU SCH (22:31)
[2018-03-23] MEDS: Pantoprazole 40 mg EC Tab PO SCH (09:31)
[2018-03-23] MEDS: Multivitamin With Minerals Tab PO SCH (09:31)
[2018-03-23] MEDS: Bacitracin OINT 15GM TOP SCH ×2 (09:32→22:56)
--- NOTE | 2018-03-23 12:07 | CP.PCM.PN ---
Subjective - Date & Time of Evaluation Date of Evaluation: 03/23/18 Time of Evaluation: 12:07 - Subjective Subjective: Seen on rounds today sitting in a chair at the bedside. He was noted to be eating his lunch and appeared to be having some trouble swallowing. When questioned he did relate having had problems for the past few months when swallowing his larger capsules. He denies any vomiting and/or pain on swallowing. He continues to have some urinary hesitancy and his FLOMAX will be increased again to 0.8 mg once daily. There is mild dependent edema at the ankles noted today without cyanosis. The neck is supple and trachea is midline. There is some residual dullness at the right base posteriorly with absent breath sounds in the same area. No bronchial breathing or egophony. No wheezing. Awaiting further pleural fluid results: At this time cytology was reported as negative and pleural fluid chemistry suggests exudate. Culture shows no growth at 48 hours. We'll request barium esophagogram for Sunday morning. Objective - Vital Signs/Intake and Output Vital Signs (last 24 hours): Temp Pulse Resp BP Pulse Ox 97.2 F L 101 H 18 102/66 98 03/23/18 08:13 03/23/18 08:13 03/23/18 08:13 03/23/18 08:13 03/23/18 08:13 - Medications Medications: Current Medications Aspirin (Ecotrin) 81 mg PO DAILY [facility] Last Admin: 03/23/18 09:31 Dose: 81 mg Bacitracin (Bacitracin Oint) 1 applic TOP BID@0900,2100 [facility] Last Admin: 03/23/18 09:32 Dose: 1 applic Finasteride (Proscar) 5 mg PO DAILY [facility] Last Admin: 03/23/18 09:31 Dose: 5 mg Latanoprost (Xalatan Opht) 1 drop OU HS [facility] Last Admin: 03/22/18 22:31 Dose: 1 drop Multivitamins/Minerals (Therapeutic-M Tab) 1 tab PO DAILY [facility] Last Admin: 03/23/18 09:31 Dose: 1 tab Pantoprazole Sodium (Protonix Ec Tab) 40 mg PO DAILY [facility] Last Admin: 03/23/18 09:31 Dose: 40 mg Tamsulosin HCl (Flomax) 0.8 mg PO 1300 [facility] Last Admin: 03/22/18 14:36 Dose: 0.8 mg Timolol Maleate (Timoptic 0.5% Oph Soln) 1 drop OU DAILY [facility] Last Admin: 03/23/18 09:32 Dose: 1 drop - Labs Labs: 03/22/18 06:00 03/22/18 06:00
--- NOTE | 2018-03-23 12:27 | CP.PCM.PN ---
Subjective - Date & Time of Evaluation Date of Evaluation: 03/23/18 Time of Evaluation: 10:50 - Subjective Subjective: Pt sitting OOB, finished his PT PT consisted of walking in the room with therapist in attendance Fatigue/exhaustion terminated session BP on standing up dropped to 77 mm Hg and promptly recovered to 100 mm Hg Pt remained free of dizzy spells in upright posture No overt vol overload Still reports urinary hesitancy and frequency (on 0.4 mg of Flomax) Pt has been getting dietary supplements (Ensure) Objective - Vital Signs/Intake and Output Vital Signs (last 24 hours): Temp Pulse Resp BP Pulse Ox 97.2 F L 101 H 18 102/66 98 03/23/18 08:13 03/23/18 08:13 03/23/18 08:13 03/23/18 08:13 03/23/18 08:13 - Medications Medications: Current Medications Aspirin (Ecotrin) 81 mg PO DAILY [facility] Last Admin: 03/23/18 09:31 Dose: 81 mg Bacitracin (Bacitracin Oint) 1 applic TOP BID@0900,2100 [facility] Last Admin: 03/23/18 09:32 Dose: 1 applic Finasteride (Proscar) 5 mg PO DAILY [facility] Last Admin: 03/23/18 09:31 Dose: 5 mg Latanoprost (Xalatan Opht) 1 drop OU HS [facility] Last Admin: 03/22/18 22:31 Dose: 1 drop Multivitamins/Minerals (Therapeutic-M Tab) 1 tab PO DAILY [facility] Last Admin: 03/23/18 09:31 Dose: 1 tab Pantoprazole Sodium (Protonix Ec Tab) 40 mg PO DAILY [facility] Last Admin: 03/23/18 09:31 Dose: 40 mg Tamsulosin HCl (Flomax) 0.8 mg PO 1300 [facility] Last Admin: 03/22/18 14:36 Dose: 0.8 mg Timolol Maleate (Timoptic 0.5% Ophth Soln) 1 drop OU DAILY [facility] Last Admin: 03/23/18 09:32 Dose: 1 drop - Labs Labs: 03/22/18 06:00 03/22/18 06:00
[2018-03-23 16:48] VITALS: RESP 20
[2018-03-23] MEDS: Latanoprost 0.005% Opht SOUTION OU SCH (22:56)
[2018-03-24] MEDS: Multivitamin With Minerals Tab PO SCH (08:40)
[2018-03-24] MEDS: Bacitracin OINT 15GM TOP SCH ×2 (08:40→21:10)
[2018-03-24] MEDS: Pantoprazole 40 mg EC Tab PO SCH (08:43)
[2018-03-24] MEDS: Latanoprost 0.005% Opht SOUTION OU SCH (21:10)
[2018-03-25] MEDS: Multivitamin With Minerals Tab PO SCH (08:33)
[2018-03-25] MEDS: Bacitracin OINT 15GM TOP SCH ×2 (08:34→21:42)
[2018-03-25] MEDS: Pantoprazole 40 mg EC Tab PO SCH (08:37)
--- NOTE | 2018-03-25 12:11 | CP.PCM.PN ---
<Álvaro Zuñiga - Last Filed: 03/25/18 13:04> Subjective - Date & Time of Evaluation Date of Evaluation: 03/25/18 Time of Evaluation: 11:20 - Subjective Subjective: Patient seen and examined on rounds today sitting in a chair at the bedside. Patient did Physical therapy in the morning, tolerating well. Patient admits trouble swallowing large pills and food. He denies any vomiting and/or pain on swallowing. He reports improvement in urinary hasitency and stream. Currently on FLOMAX 0.8 mg once daily. Vitals stable. There is trace dependent edema at the ankles noted today without cyanosis. The neck is supple and trachea is midline. There is some residual dullness at the right base posteriorly with absent breath sounds in the same area. No bronchial breathing or egophony. No wheezing. At this time cytology was reported as negative and pleural fluid chemistry suggests exudate. Culture shows no growth at 48 hours. Quantiferon gold negative. Will order Esophagogram for further evaluation. Objective - Vital Signs/Intake and Output Vital Signs (last 24 hours): Temp Pulse Resp BP Pulse Ox 97.8 F 105 H 20 98/69 L 96 03/25/18 09:05 03/25/18 09:05 03/25/18 09:05 03/25/18 09:05 03/25/18 09:05 - Medications Medications: Current Medications Aspirin (Ecotrin) 81 mg PO DAILY [facility] Last Admin: 03/25/18 08:33 Dose: 81 mg Bacitracin (Bacitracin Oint) 1 applic TOP BID@0900,2100 [facility] Last Admin: 03/25/18 08:34 Dose: 1 applic Finasteride (Proscar) 5 mg PO DAILY [facility] Last Admin: 03/25/18 08:33 Dose: 5 mg Latanoprost (Xalatan Opht) 1 drop OU HS [facility] Last Admin: 03/24/18 21:10 Dose: 1 drop Multivitamins/Minerals (Therapeutic-M Tab) 1 tab PO DAILY [facility] Last Admin: 03/25/18 08:33 Dose: 1 tab Pantoprazole Sodium (Protonix Ec Tab) 40 mg PO DAILY [facility] Last Admin: 03/25/18 08:37 Dose: 40 mg Tamsulosin HCl (Flomax) 0.8 mg PO 1300 [facility] Last Admin: 03/24/18 12:34 Dose: 0.8 mg Timolol Maleate (Timoptic 0.5% Ophth Soln) 1 drop OU DAILY [facility] Last Admin: 03/25/18 08:34 Dose: 1 drop - Labs Labs: 03/22/18 06:00 03/22/18 06:00 Assessment and Plan (1) Pleural effusion Status: Chronic (2) CHF (congestive heart failure) Status: Chronic (3) Atrial fibrillation Status: Chronic (4) Severe tricuspid regurgitation by prior echocardiogram Status: Chronic (5) Dysphagia Status: Acute <Fady Briscoe - Last Filed: 03/25/18 17:53> Subjective - Subjective Subjective: The patient was seen and examined together with the residents on rounds. Physical findings were discussed in plan of care was formulated. I am in agreement with the findings as recorded in the EMR by the resident. Objective - Vital Signs/Intake and Output Vital Signs (last 24 hours): Temp Pulse Resp BP Pulse Ox 97.2 F L 86 20 97/60 L 96 03/25/18 15:43 03/25/18 15:43 03/25/18 15:43 03/25/18 15:43 03/25/18 15:43 - Medications Medications: Current Medications Aspirin (Ecotrin) 81 mg PO DAILY [facility] Last Admin: 03/25/18 08:33 Dose: 81 mg Bacitracin (Bacitracin Oint) 1 applic TOP BID@0900,2100 [facility] Last Admin: 03/25/18 08:34 Dose: 1 applic Finasteride (Proscar) 5 mg PO DAILY [facility] Last Admin: 03/25/18 08:33 Dose: 5 mg Latanoprost (Xalatan Opht) 1 drop OU HS [facility] Last Admin: 03/24/18 21:10 Dose: 1 drop Multivitamins/Minerals (Therapeutic-M Tab) 1 tab PO DAILY [facility] Last Admin: 03/25/18 08:33 Dose: 1 tab Pantoprazole Sodium (Protonix Ec Tab) 40 mg PO DAILY [facility] Last Admin: 03/25/18 08:37 Dose: 40 mg Tamsulosin HCl (Flomax) 0.8 mg PO 1300 [facility] Last Admin: 03/25/18 14:53 Dose: 0.8 mg Timolol Maleate (Timoptic 0.5% Ophth Soln) 1 drop OU DAILY [facility] Last Admin: 08/06/18 08:34 Dose: 1 drop - Labs Labs: 03/22/18 06:00 03/22/18 06:00
[2018-03-25] MEDS: Latanoprost 0.005% Opht SOUTION OU SCH (21:42)
[2018-03-26] MEDS: Bacitracin OINT 15GM TOP SCH ×2 (09:17→22:31)
[2018-03-26] MEDS: Pantoprazole 40 mg EC Tab PO SCH (09:18)
[2018-03-26] MEDS: Multivitamin With Minerals Tab PO SCH (09:18)
--- NOTE | 2018-03-26 09:53 | CP.PCM.PN ---
<Álvaro Zuñiga - Last Filed: 03/26/18 11:57> Subjective - Subjective Subjective: Patient seen and examined on moning rounds today. Patient sitting in a chair. Patient tolerating physical therapy without getting dizzy. Dysphagia still continues. Esophagogram not done yesterday. Patient reports feeling ' Down '. Denies any recent decline in energy level or SI/HI He reports improvement in initiation of urine stream but urinary frequency still present. Reports going to bathroom almost every hour at night. Currently on FLOMAX 0.8 mg once daily. Vitals stable. The neck is supple and trachea is midline. There is some residual dullness at the right base posteriorly. No bronchial breathing or egophony. No wheezing. No LE edema. Continue current medications Will add Vitamin D Increase Ensure from BID to TID. Esophagogram to be done tomorrow. Objective - Vital Signs/Intake and Output Vital Signs (last 24 hours): Temp Pulse Resp BP Pulse Ox 97.9 F 94 H 20 195/65 H 96 03/26/18 09:06 03/26/18 09:06 03/26/18 09:06 03/26/18 09:06 03/26/18 09:06 - Medications Medications: Current Medications Aspirin (Ecotrin) 81 mg PO DAILY [facility] Last Admin: 03/26/18 09:17 Dose: 81 mg Bacitracin (Bacitracin Oint) 1 applic TOP BID@0900,2100 [facility] Last Admin: 03/26/18 09:17 Dose: 1 applic Cholecalciferol (Vitamin D) 1,000 intlu PO DAILY [facility] Finasteride (Proscar) 5 mg PO DAILY [facility] Last Admin: 03/26/18 09:17 Dose: 5 mg Latanoprost (Xalatan Opht) 1 drop OU HS [facility] Last Admin: 03/25/18 21:42 Dose: 1 drop Multivitamins/Minerals (Therapeutic-M Tab) 1 tab PO DAILY [facility] Last Admin: 03/26/18 09:18 Dose: 1 tab Pantoprazole Sodium (Protonix Ec Tab) 40 mg PO DAILY [facility] Last Admin: 03/26/18 09:18 Dose: 40 mg Tamsulosin HCl (Flomax) 0.8 mg PO 1300 [facility] Last Admin: 03/25/18 14:53 Dose: 0.8 mg Timolol Maleate (Timoptic 0.5% Ophth Soln) 1 drop OU DAILY [facility] Last Admin: 03/26/18 09:18 Dose: 1 drop - Labs Labs: 03/22/18 06:00 03/22/18 06:00 Assessment and Plan (1) Pleural effusion Status: Chronic (2) CHF (congestive heart failure) Status: Chronic (3) Atrial fibrillation Status: Chronic (4) Severe tricuspid regurgitation by prior echocardiogram Status: Chronic (5) Dysphagia Status: Acute <Fady Briscoe - Last Filed: 03/26/18 20:59> Subjective - Date & Time of Evaluation Date of Evaluation: 03/26/18 Time of Evaluation: 09:53 - Subjective Subjective: Seen and examined with the resident on rounds in the TCU. Physical findings were reviewed and a plan of care formulated. The entry in the EMR waws done by the resident with myself in agreement. Objective - Vital Signs/Intake and Output Vital Signs (last 24 hours): Temp Pulse Resp BP Pulse Ox 97.9 F 94 H 20 195/65 H 96 03/26/18 09:06 03/26/18 09:06 03/26/18 09:06 03/26/18 09:06 03/26/18 09:06 - Medications Medications: Current Medications Aspirin (Ecotrin) 81 mg PO DAILY [facility] Last Admin: 03/26/18 09:17 Dose: 81 mg Bacitracin (Bacitracin Oint) 1 applic TOP BID@0900,2100 [facility] Last Admin: 03/26/18 09:17 Dose: 1 applic Cholecalciferol (Vitamin D) 1,000 intlu PO DAILY [facility] Finasteride (Proscar) 5 mg PO DAILY [facility] Last Admin: 03/26/18 09:17 Dose: 5 mg Latanoprost (Xalatan Opht) 1 drop OU HS [facility] Last Admin: 03/25/18 21:42 Dose: 1 drop Multivitamins/Minerals (Therapeutic-M Tab) 1 tab PO DAILY [facility] Last Admin: 03/26/18 09:18 Dose: 1 tab Pantoprazole Sodium (Protonix Ec Tab) 40 mg PO DAILY [facility] Last Admin: 03/26/18 09:18 Dose: 40 mg Tamsulosin HCl (Flomax) 0.8 mg PO 1300 [facility] Last Admin: 03/25/18 14:53 Dose: 0.8 mg Timolol Maleate (Timoptic 0.5% Ophth Soln) 1 drop OU DAILY [facility] Last Admin: 03/26/18 09:18 Dose: 1 drop - Labs Labs: 03/22/18 06:00 03/22/18 06:00
[2018-03-26] MEDS: Cholecalciferol 1,000 INTLU TAB PO SCH (12:35)
--- NOTE | 2018-03-26 19:30 | CP.PCM.PN ---
Subjective - Date & Time of Evaluation Date of Evaluation: 03/26/18 Time of Evaluation: 14:00 - Subjective Subjective: Patient seen and examined. Denied any complaint. Objective - Vital Signs/Intake and Output Vital Signs (last 24 hours): Temp Pulse Resp BP Pulse Ox 97.7 F 100 H 20 82/55 L 96 03/26/18 15:45 03/26/18 15:45 03/26/18 15:45 03/26/18 15:45 03/26/18 15:45 - Medications Medications: Current Medications Aspirin (Ecotrin) 81 mg PO DAILY [facility] Last Admin: 03/26/18 09:17 Dose: 81 mg Bacitracin (Bacitracin Oint) 1 applic TOP BID@0900,2100 [facility] Last Admin: 03/26/18 09:17 Dose: 1 applic Cholecalciferol (Vitamin D) 1,000 intlu PO DAILY [facility] Last Admin: 03/26/18 12:35 Dose: 1,000 intlu Finasteride (Proscar) 5 mg PO DAILY [facility] Last Admin: 03/26/18 09:17 Dose: 5 mg Latanoprost (Xalatan Opht) 1 drop OU HS [facility] Last Admin: 03/25/18 21:42 Dose: 1 drop Multivitamins/Minerals (Therapeutic-M Tab) 1 tab PO DAILY [facility] Last Admin: 03/26/18 09:18 Dose: 1 tab Pantoprazole Sodium (Protonix Ec Tab) 40 mg PO DAILY [facility] Last Admin: 03/26/18 09:18 Dose: 40 mg Tamsulosin HCl (Flomax) 0.8 mg PO 1300 [facility] Last Admin: 03/26/18 12:35 Dose: 0.8 mg Timolol Maleate (Timoptic 0.5% Ophth Soln) 1 drop OU DAILY [facility] Last Admin: 03/26/18 09:18 Dose: 1 drop - Labs Labs: 03/22/18 06:00 03/22/18 06:00 - Constitutional Appears: No Acute Distress - Head Exam Head Exam: ATRAUMATIC - Eye Exam Eye Exam: absent: Scleral icterus - ENT Exam ENT Exam: Mucous Membranes Moist - Neck Exam Neck Exam: absent: Meningismus - Respiratory Exam Respiratory Exam: absent: Rales, Rhonchi, Wheezes, Respiratory Distress - Cardiovascular Exam Cardiovascular Exam: Irregular Rhythm - GI/Abdominal Exam GI & Abdominal Exam: Soft. absent: Tenderness - Rectal Exam Rectal Exam: Deferred - Neurological Exam Neurological Exam: Alert, Oriented x3 - Psychiatric Exam Psychiatric exam: Normal Affect - Skin Skin Exam: Dry, Intact Assessment and Plan - Assessment and Plan (Free Text) Assessment: 82 yo male with history of Chronic AFib, Right Pleural Effusion and CHF brought in after falling beside the bathroom. He has multiple falls secondary to arrhythmia but refused pacemaker placement. Underwent IR thoracentesis because of large right pleural effusion. Transferred to TCU for rehab and therapy for management of deconditioning. 1. Orthostatic Hypotension secondary to arrhythmia, severe TR and medication has been free of dizzy spells 2. Chronic AFib rate controlled off Metoprolol because of bradycardia no anticoagulant because of high risk of falling continue ASA 81mg PO daily 3. CHF with Bilateral Pleural effusion post thoracentesis off Lasix becasue of severe TR off Aldactone because of hyperkalemia off Metoprolol because of bradycardia 4. BPH continue Flomax and Finasteride
[2018-03-26] MEDS: Latanoprost 0.005% Opht SOUTION OU SCH (22:30)
--- NOTE | 2018-03-27 09:40 | CP.PCM.PN ---
Subjective - Date & Time of Evaluation Date of Evaluation: 03/27/18 Time of Evaluation: 09:10 - Subjective Subjective: Pt has been going to PT with fatigue as the limiting factor Denies any dizziness BP 96 mm Hg syst laying doen and 80 mm Hg standing up Pt quite asymptomatic while standing up A Fib at 90 mm Hg No pedal oedema, no rales, JVP not elevated Will add Florinef 0.1 mg to boost intra vasc volume to relive orthostatic hypotension Still needs 0.4 mg of Flomax to reduce urinary retension Apixiban reintroduced to prevent systemic emboli with much trepidation (pt aware of pros and cons) Spoke with Dr. Briscoe to have pt evaluated for poss Parkinson's. Objective - Vital Signs/Intake and Output Vital Signs (last 24 hours): Temp Pulse Resp BP Pulse Ox 97.9 F 115 H 20 99/68 L 96 03/27/18 08:18 0818 08:18 18 08:18 03/27/18 08:18 03/27/18 08:18 - Medications Medications: Current Medications Apixaban (Eliquis) 5 mg PO DAILY [facility] PRN Reason: Protocol Bacitracin (Bacitracin Oint) 1 applic TOP BID@0900,2100 [facility] Last Admin: 03/26/18 22:31 Dose: 1 applic Cholecalciferol (Vitamin D) 1,000 intlu PO DAILY [facility] Last Admin: 03/26/18 12:35 Dose: 1,000 intlu Finasteride (Proscar) 5 mg PO DAILY [facility] Last Admin: 03/26/18 09:17 Dose: 5 mg Fludrocortisone Acetate (Florinef) 0.1 mg PO DAILY [facility] Latanoprost (Xalatan Opht) 1 drop OU HS [facility] Last Admin: 03/26/18 22:30 Dose: 1 drop Multivitamins/Minerals (Therapeutic-M Tab) 1 tab PO DAILY [facility] Last Admin: 03/26/18 09:18 Dose: 1 tab Pantoprazole Sodium (Protonix Ec Tab) 40 mg PO DAILY [facility] Last Admin: 03/26/18 09:18 Dose: 40 mg Tamsulosin HCl (Flomax) 0.8 mg PO 1300 [facility] Last Admin: 03/26/18 12:35 Dose: 0.8 mg Timolol Maleate (Timoptic 0.5% Ophth Soln) 1 drop OU DAILY [facility] Last Admin: 03/26/18 09:18 Dose: 1 drop - Labs Labs: 03/22/18 06:00 03/22/18 06:00
[2018-03-27] MEDS ORDERED: Barium Sulfate Susp 0.1% w/v, 0.1% w/w 450 mL Bottle PO ONE (12:10)
[2018-03-27] MEDS ORDERED: Barium Sulfate for Susp 98% w/w 340g Bottle ONE (12:10)
--- NOTE | 2018-03-27 12:22 | CP.PCM.PN ---
<Álvaro Zuñiga - Last Filed: 03/27/18 13:00> Subjective - Date & Time of Evaluation Date of Evaluation: 03/27/18 Time of Evaluation: 09:45 - Subjective Subjective: Patient evaluated and examined at bedside during morning rounds in TCU. Patient tolerating PT with mild fatigue. No dizziness. He reports improvement in initiation of urine stream but urinary frequency still present. Currently on FLOMAX 0.8 mg once daily. Vitals stable. except for tachycardia. HR 115. Flat affect, No rigidity or resting tremor. The neck is supple and trachea is midline. There is some residual dullness at the right base posteriorly. No bronchial breathing or egophony. No wheezing. No LE edema, Teds on. Patient started on Florinef 0.[address] Wood. Neurology consult(Dr. Berrios) for Parkinson's evaluation. Forehead stiches to be removed on Sunday Esophagogram today. Patient NPO C/W other medications. Objective - Vital Signs/Intake and Output Vital Signs (last 24 hours): Temp Pulse Resp BP Pulse Ox 97.9 F 115 H 20 99/68 L 96 03/27/18 08:18 03/27/18 08:18 03/27/18 08:18 03/27/18 08:18 03/27/18 08:18 - Medications Medications: Current Medications Apixaban (Eliquis) 5 mg PO DAILY [facility] PRN Reason: Protocol Bacitracin (Bacitracin Oint) 1 applic TOP BID@0900,2100 [facility] Last Admin: 03/26/18 22:31 Dose: 1 applic Cholecalciferol (Vitamin D) 1,000 intlu PO DAILY [facility] Last Admin: 03/26/18 12:35 Dose: 1,000 intlu Finasteride (Proscar) 5 mg PO DAILY [facility] Last Admin: 03/26/18 09:17 Dose: 5 mg Fludrocortisone Acetate (Florinef) 0.1 mg PO DAILY [facility] Latanoprost (Xalatan Opht) 1 drop OU HS [facility] Last Admin: 03/26/18 22:30 Dose: 1 drop Multivitamins/Minerals (Therapeutic-M Tab) 1 tab PO DAILY [facility] Last Admin: 03/26/18 09:18 Dose: 1 tab Pantoprazole Sodium (Protonix Ec Tab) 40 mg PO DAILY [facility] Last Admin: 03/26/18 09:18 Dose: 40 mg Tamsulosin HCl (Flomax) 0.8 mg PO 1300 [facility] Last Admin: 03/26/18 12:35 Dose: 0.8 mg Timolol Maleate (Timoptic 0.5% Ophth Soln) 1 drop OU DAILY [facility] Last Admin: 03/26/18 09:18 Dose: 1 drop - Labs Labs: 03/22/18 06:00 03/22/18 06:00 Assessment and Plan (1) Pleural effusion Status: Chronic (2) CHF (congestive heart failure) Status: Chronic (3) Atrial fibrillation Status: Chronic (4) Severe tricuspid regurgitation by prior echocardiogram Status: Chronic (5) Dysphagia Status: Acute <Fady Briscoe - Last Filed: 03/28/18 07:00> Subjective - Subjective Subjective: Seen and examined with the residents on morning rounds. Physical findings were discussed. Plan of therapy was discussed. I agree with the resident's entry into the EMR as noted. Objective - Vital Signs/Intake and Output Vital Signs (last 24 hours): Temp Pulse Resp BP Pulse Ox 97.7 F 68 20 94/70 L 94 L 03/27/18 21:50 03/27/18 21:50 03/27/18 21:50 03/27/18 21:50 03/27/18 21:50 - Medications Medications: Current Medications Apixaban (Eliquis) 2.5 mg PO Q12 [facility] PRN Reason: Protocol Last Admin: 03/27/18 22:13 Dose: 2.5 mg Bacitracin (Bacitracin Oint) 1 applic TOP BID@0900,2100 [facility] Last Admin: 03/27/18 20:57 Dose: 1 applic Cholecalciferol (Vitamin D) 1,000 intlu PO DAILY [facility] Last Admin: 03/27/18 14:10 Dose: 1,000 intlu Finasteride (Proscar) 5 mg PO DAILY [facility] Last Admin: 03/27/18 14:09 Dose: 5 mg Fludrocortisone Acetate (Florinef) 0.1 mg PO DAILY [facility] Last Admin: 03/27/18 14:10 Dose: 0.1 mg Latanoprost (Xalatan Opht) 1 drop OU HS [facility] Last Admin: 03/27/18 23:05 Dose: 1 drop Multivitamins/Minerals (Therapeutic-M Tab) 1 tab PO DAILY [facility] Last Admin: 03/27/18 14:09 Dose: 1 tab Pantoprazole Sodium (Protonix Ec Tab) 40 mg PO DAILY [facility] Last Admin: 03/27/18 14:09 Dose: 40 mg Tamsulosin HCl (Flomax) 0.8 mg PO 1300 [facility] Last Admin: 03/27/18 17:44 Dose: 0.8 mg Timolol Maleate (Timoptic 0.5% Oph Soln) 1 drop OU DAILY [facility] Last Admin: 03/27/18 14:10 Dose: 1 drop - Labs Labs: 03/22/18 06:00 03/22/18 06:00 PT 13.8 Seconds (9.8-13.1) H 03/27/18 18:36 INR 1.2 03/27/18 18:36
[2018-03-27] MEDS: Bacitracin OINT 15GM TOP SCH ×2 (14:06→20:57)
[2018-03-27] MEDS: Pantoprazole 40 mg EC Tab PO SCH (14:09)
[2018-03-27] MEDS: Multivitamin With Minerals Tab PO SCH (14:09)
[2018-03-27] MEDS: Cholecalciferol 1,000 INTLU TAB PO SCH (14:10)
--- NOTE | 2018-03-27 14:57 | RAD ---
Date of service: 03/27/2018 HISTORY: Dysphagia. COMPARISON: None. TECHNIQUE: Thickened slightly thinner barium was orally administered to the patient and a esophagram was performed. FINDINGS: Patient tolerated procedure well. ESOPHAGUS: Esophageal mucosa appeared grossly preserved. No evidence of high grade focal stricture or gross mass lesion. Some of the upper. The disc caliber was opacified at times of less distension. This was felt to be functional rather than a persistent finding. HIATAL HERNIA: No consistently demonstrated hiatal hernia seen GASTROESOPHAGEAL REFLUX: Not demonstrated. OTHER FINDINGS: Throughout the exam patient had extensive tertiary wave contractions and intra esophageal reflux. 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 And intra esophageal reflux. No high-grade focal stenosis or gross mass lesion appreciated. These are the best possible images obtainable given patient's ability to cooperate.
--- NOTE | 2018-03-27 17:11 | CON ---
Copied To: Elmo Berrios MD Attending MD: Elmo Berrios MD DATE: 03/27/2018 NEUROLOGY CONSULTATION CHIEF COMPLAINT: Evaluation for parkinsonism. HISTORY OF PRESENT ILLNESS: This is an 82-year-old man with past medical history of severe tricuspid regurgitation, BPH, AFib, who came into the hospital in acute care section for syncopal episode as a consequence of developing severe orthostatic hypotension, which was likely deemed secondary to aggressive diuretic therapy in the phase of superimposed underlying atrial fibrillation and right ventricular heart failure, therefore his medications were adjusted and he also had pleural tap on the right side for some pleural effusion and his symptoms started to improve. I was called to evaluate for parkinsonism. He is undergoing rehabilitation. He does not have any bradykinesia or any resting tremor or increased rigidity. He is very deconditioned though, therefore we will recommend that he needs physical and occupational therapy. He needs to be on anticoagulation in regards to his atrial fibrillation for stroke prevention and since he is on Eliquis 2.5 p.o. every 12 hours, he is in mild risk for fall, but if he is adequately treated with good physical therapy and uses a walker, he should be good. PAST MEDICAL HISTORY: As above. SOCIAL HISTORY: No illicit drug abuse, smoking, or EtOH abuse. ALLERGIES: NO KNOWN DRUG ALLERGIES. MEDICATIONS: Reviewed by nurse reconciliation sheet. FAMILY HISTORY: Noncontributory. REVIEW OF SYSTEMS: A 14-point review of systems is negative except in the HPI. LABORATORY DATA: No new labs done today. PHYSICAL EXAMINATION: VITAL SIGNS: Temperature of 97.9, pulse rate 115, blood pressure 99/68, respiratory rate 20, and oxygen saturation 96% via room air. GENERAL: The patient is sitting up in bed, in no acute distress. HEENT: Atraumatic and normocephalic. PERRLA. Extraocular muscles are intact. NECK: Supple. No JVD. No adenopathy noted. LUNGS: Decreased breath sounds bilaterally. HEART: Irregular rate and rhythm. No murmur, rubs, or gallops. ABDOMEN: Soft, nontender, nondistended. Bowel sounds are present. EXTREMITIES: No clubbing. No cyanosis. Peripheral pulses are 2+ felt bilaterally. NEUROLOGIC: The patient is alert and oriented to person, place, and year. Recall after five minutes is 2/3. Poor attention span. Thought process, he is able to do calculations still, able to spell words backwards. Motor: Slightly increased tone throughout. No cogwheel rigidity at the wrist. Moves all extremities equally. No resting tremor. Sensory exam: Light touch, pinprick, proprioception and, vibrations are intact. DTRs are 2+ throughout, 1 at both knees and ankles. Coordination: [id number] intact. No dysmetria noted. Gait is deferred for now. ASSESSMENT AND PLAN: This is an 82-year-old man with history of severe tricuspid regurgitation, atrial fibrillation, benign prostatic hyperplasia, who came in originally through the for syncopal event secondary to hypotension secondary to aggressive diuretic therapy in the patient with right ventricular failure and chronic atrial fibrillation. I was called to evaluate for underlying parkinsonism. I do not feel he has true Parkinson's disease, but he is very deconditioned. He will benefit from physical and occupation therapy for underlying deconditioned state in terms of muscle strengthening, myofascial pain relief techniques, transcutaneous electrical nerve stimulation unit, ultrasound therapy and coordination and balance exercises. We will reevaluate in about a month to see any other additional features of parkinsonism. Now, we will recommend to continue with current cardiovascular and pulmonary treatment. Thank you for this consult. Elmo Berrios MD
[2018-03-27 18:55] LABS: INR 1.2; PROTHROMBIN TIME 13.8 Seconds (9.8-13.1)
[2018-03-27] MEDS: Latanoprost 0.005% Opht SOUTION OU SCH (23:05)
[2018-03-28] MEDS: Multivitamin With Minerals Tab PO SCH (08:12)
[2018-03-28] MEDS: Cholecalciferol 1,000 INTLU TAB PO SCH (08:12)
[2018-03-28] MEDS: Pantoprazole 40 mg EC Tab PO SCH (08:13)
[2018-03-28] MEDS: Bacitracin OINT 15GM TOP SCH ×2 (08:16→20:50)
--- NOTE | 2018-03-28 10:15 | CP.PCM.PN ---
Subjective - Date & Time of Evaluation Date of Evaluation: 03/28/18 Time of Evaluation: 09:40 - Subjective Subjective: No dizzy spells during upright posture PT mostly limited by fatigue Has been on Florinef 0.1 mg for a day Syst BP 90-100 in upright posture No pedal oedema or rales or MARIE No change in LUTS (on Flomax 0.4 mg OD) Objective - Vital Signs/Intake and Output Vital Signs (last 24 hours): Temp Pulse Resp BP Pulse Ox 97.7 F 101 H 20 101/75 99 03/28/18 08:08 03/28/18 08:08 03/28/18 08:08 03/28/18 08:08 03/28/18 08:08 - Medications Medications: Current Medications Apixaban (Eliquis) 2.5 mg PO Q12 [facility] PRN Reason: Protocol Last Admin: 03/28/18 08:11 Dose: 2.5 mg Bacitracin (Bacitracin Oint) 1 applic TOP BID@0900,2100 [facility] Last Admin: 03/28/18 08:16 Dose: 1 applic Cholecalciferol (Vitamin D) 1,000 intlu PO DAILY [facility] Last Admin: 03/28/18 08:12 Dose: 1,000 intlu Finasteride (Proscar) 5 mg PO DAILY [facility] Last Admin: 03/28/18 08:11 Dose: 5 mg Fludrocortisone Acetate (Florinef) 0.1 mg PO DAILY [facility] Last Admin: 03/28/18 08:11 Dose: 0.1 mg Latanoprost (Xalatan Opht) 1 drop OU HS [facility] Last Admin: 03/27/18 23:05 Dose: 1 drop Multivitamins/Minerals (Therapeutic-M Tab) 1 tab PO DAILY [facility] Last Admin: 03/28/18 08:12 Dose: 1 tab Pantoprazole Sodium (Protonix Ec Tab) 40 mg PO DAILY [facility] Last Admin: 03/28/18 08:13 Dose: 40 mg Tamsulosin HCl (Flomax) 0.8 mg PO 1300 [facility] Last Admin: 03/27/18 17:44 Dose: 0.8 mg Timolol Maleate (Timoptic 0.5% Ophth Soln) 1 drop OU DAILY [facility] Last Admin: 03/28/18 08:12 Dose: 1 drop - Labs Labs: 03/22/18 06:00 03/22/18 06:00 PT 13.8 Seconds (9.8-13.1) H 03/27/18 18:36 INR 1.2 03/27/18 18:36
--- NOTE | 2018-03-28 11:38 | CP.PCM.PN ---
Subjective - Date & Time of Evaluation Date of Evaluation: 03/28/18 Time of Evaluation: 10:00 - Subjective Subjective: Patient evaluated and examined at bedside during morning rounds in TCU. Patient tolerating PT with mild fatigue. No dizziness or SOB. Tolerating oral solid and liquid diet. Urinary frequency continues, Denies trouble initiating stream, dysuria. Currently on Flomax 0.8 mg. Vitals stable. HR 104, BP 104/75, RR 20 SpO2 99%. The neck is supple and trachea is midline. Breath sounds reduced, more on right lower base. No wheezing or rales. Mild residual dullness at the right base posteriorly. No LE edema, Teds on. Will order CXR today to evaluate pleural effusion. Esophagorgam: Extensive tertiary wave contractions. No high grade focal stenosis or mass lesion noted. Patient on Florinef 0.1 mg day [address] Berrios, Weakness most likely from deconditioning rather than parkinson, Outpatient F/U in 1 month recommended. Forehead stiches to be removed tomorrow. C/W other medications. Objective - Vital Signs/Intake and Output Vital Signs (last 24 hours): Temp Pulse Resp BP Pulse Ox 97.7 F 101 H 20 101/75 99 03/28/18 08:08 03/28/18 08:08 03/28/18 08:08 03/28/18 08:08 03/28/18 08:08 - Medications Medications: Current Medications Apixaban (Eliquis) 2.5 mg PO Q12 [facility] PRN Reason: Protocol Last Admin: 03/28/18 08:11 Dose: 2.5 mg Bacitracin (Bacitracin Oint) 1 applic TOP BID@0900,2100 [facility] Last Admin: 03/28/18 08:16 Dose: 1 applic Cholecalciferol (Vitamin D) 1,000 intlu PO DAILY [facility] Last Admin: 03/28/18 08:12 Dose: 1,000 intlu Finasteride (Proscar) 5 mg PO DAILY [facility] Last Admin: 03/28/18 08:11 Dose: 5 mg Fludrocortisone Acetate (Florinef) 0.1 mg PO DAILY [facility] Last Admin: 03/28/18 08:11 Dose: 0.1 mg Latanoprost (Xalatan Opht) 1 drop OU HS [facility] Last Admin: 03/27/18 23:05 Dose: 1 drop Multivitamins/Minerals (Therapeutic-M Tab) 1 tab PO DAILY [facility] Last Admin: 03/28/18 08:12 Dose: 1 tab Pantoprazole Sodium (Protonix Ec Tab) 40 mg PO DAILY [facility] Last Admin: 03/28/18 08:13 Dose: 40 mg Tamsulosin HCl (Flomax) 0.8 mg PO 1300 [facility] Last Admin: 03/27/18 17:44 Dose: 0.8 mg Timolol Maleate (Timoptic 0.5% [facility]) 1 drop OU DAILY [facility] Last Admin: 03/28/18 08:12 Dose: 1 drop - Labs Labs: 03/22/18 06:00 03/22/18 06:00 PT 13.8 Seconds (9.8-13.1) H 03/27/18 18:36 INR 1.2 03/27/18 18:36 Assessment and Plan (1) Pleural effusion Status: Chronic (2) CHF (congestive heart failure) Status: Chronic (3) Atrial fibrillation Status: Chronic (4) Severe tricuspid regurgitation by prior echocardiogram Status: Chronic (5) Dysphagia Status: Acute
--- NOTE | 2018-03-28 12:18 | RAD ---
Date of service: 03/28/2018 HISTORY: Pleural effusion. Relevant interventional procedure(s): 04/06/2018 right thoracentesis with retrieval of 600 cc of fluid from the right pleural space. COMPARISON: 03/21/2018. TECHNIQUE: Chest PA and lateral FINDINGS: LUNGS: Stable consolidative changes right jemima thorax. PLEURA: Stable and partially loculated right pleural effusion. Trace new left pleural effusion. CARDIOVASCULAR: Normal. OSSEOUS STRUCTURES: No significant abnormalities. VISUALIZED UPPER ABDOMEN: Normal. OTHER FINDINGS: None. IMPRESSION: No significant interval change compared to the prior examination(s).
--- NOTE | 2018-03-28 14:01 | CP.PCM.PN ---
Subjective - Date & Time of Evaluation Date of Evaluation: 03/28/18 Time of Evaluation: 11:45 - Subjective Subjective: Patient seen and examined. No new complaint. Objective - Vital Signs/Intake and Output Vital Signs (last 24 hours): Temp Pulse Resp BP Pulse Ox 97.7 F 101 H 20 101/75 99 03/28/18 08:08 03/28/18 08:08 03/28/18 08:08 03/28/18 08:08 03/28/18 08:08 - Medications Medications: Current Medications Apixaban (Eliquis) 2.5 mg PO Q12 [facility] PRN Reason: Protocol Last Admin: 03/28/18 08:11 Dose: 2.5 mg Bacitracin (Bacitracin Oint) 1 applic TOP BID@0900,2100 [facility] Last Admin: 03/28/18 08:16 Dose: 1 applic Cholecalciferol (Vitamin D) 1,000 intlu PO DAILY [facility] Last Admin: 03/28/18 08:12 Dose: 1,000 intlu Finasteride (Proscar) 5 mg PO DAILY [facility] Last Admin: 03/28/18 08:11 Dose: 5 mg Fludrocortisone Acetate (Florinef) 0.1 mg PO DAILY [facility] Last Admin: 03/28/18 08:11 Dose: 0.1 mg Latanoprost (Xalatan Opht) 1 drop OU HS [facility] Last Admin: 03/27/18 23:05 Dose: 1 drop Multivitamins/Minerals (Therapeutic-M Tab) 1 tab PO DAILY [facility] Last Admin: 03/28/18 08:12 Dose: 1 tab Pantoprazole Sodium (Protonix Ec Tab) 40 mg PO DAILY [facility] Last Admin: 03/28/18 08:13 Dose: 40 mg Tamsulosin HCl (Flomax) 0.8 mg PO 1300 [facility] Last Admin: 03/28/18 13:54 Dose: 0.8 mg Timolol Maleate (Timoptic 0.5% Ophth Soln) 1 drop OU DAILY [facility] Last Admin: 03/28/18 08:12 Dose: 1 drop - Labs Labs: 03/22/18 06:00 03/22/18 06:00 PT 13.8 Seconds (9.8-13.1) H 03/27/18 18:36 INR 1.2 03/27/18 18:36 - Constitutional Appears: No Acute Distress - Head Exam Head Exam: ATRAUMATIC - Eye Exam Eye Exam: absent: Scleral icterus - ENT Exam ENT Exam: Mucous Membranes Moist - Neck Exam Neck Exam: absent: Meningismus - Respiratory Exam Respiratory Exam: absent: Rales, Rhonchi, Wheezes, Respiratory Distress - Cardiovascular Exam Cardiovascular Exam: Irregular Rhythm - GI/Abdominal Exam GI & Abdominal Exam: Soft. absent: Tenderness - Rectal Exam Rectal Exam: Deferred - Extremities Exam Extremities Exam: absent: Pedal Edema - Back Exam Back Exam: absent: tenderness - Neurological Exam Neurological Exam: Alert, Oriented x3 - Psychiatric Exam Psychiatric exam: Normal Affect - Skin Skin Exam: Dry, Intact Assessment and Plan - Assessment and Plan (Free Text) Assessment: 82 yo male with history of Chronic AFib, Right Pleural Effusion and CHF brought in after falling beside the bathroom. He has multiple falls secondary to arrhythmia but refused pacemaker placement. Underwent IR thoracentesis because of large right pleural effusion. Transferred to TCU for rehab and therapy for management of deconditioning. 1. Orthostatic Hypotension secondary to arrhythmia, severe TR and medication no dizzy spells on Florinef 0.1mg PO daily 2. Chronic AFib rate controlled off Metoprolol because of bradycardia no anticoagulant because of high risk of falling continue ASA 81mg PO daily 3. CHF with Bilateral Pleural effusion post thoracentesis off Lasix becasue of severe TR off Aldactone because of hyperkalemia off Metoprolol because of bradycardia 4. BPH continue Flomax and Finasteride
[2018-03-28] MEDS: Latanoprost 0.005% Opht SOUTION OU SCH (20:59)
[2018-03-29] MEDS: Bacitracin OINT 15GM TOP SCH ×3 (08:58→21:28)
[2018-03-29] MEDS: Pantoprazole 40 mg EC Tab PO SCH (08:59)
[2018-03-29] MEDS: Cholecalciferol 1,000 INTLU TAB PO SCH (09:00)
[2018-03-29] MEDS: Multivitamin With Minerals Tab PO SCH (09:00)
--- NOTE | 2018-03-29 11:09 | CP.PCM.PN ---
Subjective - Date & Time of Evaluation Date of Evaluation: 03/29/18 Time of Evaluation: 10:00 - Subjective Subjective: Symptom free on standing up from laying flat in the bed HR 78 BPM irrg BP 94 mm Hg diane down 76 mm Hg standing up On florinef 0.1 mg daily Has no difficulty voiding Discussed with Dr. Briscoe current medicines Objective - Vital Signs/Intake and Output Vital Signs (last 24 hours): Temp Pulse Resp BP Pulse Ox 97.0 F L 91 H 20 96/54 L 99 03/29/18 08:29 03/29/18 08:29 03/29/18 08:29 03/29/18 08:29 03/29/18 08:29 - Medications Medications: Current Medications Apixaban (Eliquis) 2.5 mg PO Q12 [facility] PRN Reason: Protocol Last Admin: 03/29/18 09:00 Dose: 2.5 mg Bacitracin (Bacitracin Oint) 1 applic TOP BID@0900,2100 [facility] Last Admin: 03/29/18 08:58 Dose: 1 applic Cholecalciferol (Vitamin D) 1,000 intlu PO DAILY [facility] Last Admin: 03/29/18 09:00 Dose: 1,000 intlu Finasteride (Proscar) 5 mg PO DAILY [facility] Last Admin: 03/29/18 09:00 Dose: 5 mg Fludrocortisone Acetate (Florinef) 0.1 mg PO DAILY [facility] Last Admin: 03/29/18 09:00 Dose: 0.1 mg Latanoprost (Xalatan Opht) 1 drop OU HS [facility] Last Admin: 03/28/18 20:59 Dose: 1 drop Multivitamins/Minerals (Therapeutic-M Tab) 1 tab PO DAILY [facility] Last Admin: 03/29/18 09:00 Dose: 1 tab Pantoprazole Sodium (Protonix Ec Tab) 40 mg PO DAILY [facility] Last Admin: 03/29/18 08:59 Dose: 40 mg Tamsulosin HCl (Flomax) 0.8 mg PO 1300 [facility] Last Admin: 03/28/18 13:54 Dose: 0.8 mg Timolol Maleate (Timoptic 0.5% Ophth Soln) 1 drop OU DAILY [facility] Last Admin: 03/29/18 08:59 Dose: 1 drop - Labs Labs: 03/22/18 06:00 03/22/18 06:00 PT 13.8 Seconds (9.8-13.1) H 03/27/18 18:36 INR 1.2 03/27/18 18:36
--- NOTE | 2018-03-29 14:06 | CP.PCM.PN ---
Subjective - Date & Time of Evaluation Date of Evaluation: 03/29/18 Time of Evaluation: 13:57 - Subjective Subjective: Seen on rounds earlier in the day with the residents on transitional care. He appears to be making very slow but positive headway. It appears now that he will require longer period of subacute rehabilitation prior to returning home. Case was discussed with cardiology this morning and he will be continued on Florinef 0.1 mg daily. His vital signs have remained stable and his blood pressures slightly less orthostatic. A chest x-ray performed yesterday showed a stable right-sided pleural effusion. Physical exam reveals the expected diminished breath sounds bilaterally but more so on the right especially in the lower half of the hemithorax. There is no audible wheezing or bronchial breathing. The heart sounds are irregularly irregular and there is a loud systolic murmur at the apex. Discussed possibilities with urology concerning continued use of Flomax. We'll trial Rapaflo 8 mg once daily which may have slightly less tendency to cause orthostatic change in blood pressure. The patient is a poor candidate for any surgical interventions and is already taking finasteride. Objective - Vital Signs/Intake and Output Vital Signs (last 24 hours): Temp Pulse Resp BP Pulse Ox 97.0 F L 91 H 20 96/54 L 99 03/29/18 08:29 03/29/18 08:29 03/29/18 08:29 03/29/18 08:29 03/29/18 08:29 - Medications Medications: Current Medications Apixaban (Eliquis) 2.5 mg PO Q12 [facility] PRN Reason: Protocol Last Admin: 03/29/18 09:00 Dose: 2.5 mg Bacitracin (Bacitracin Oint) 1 applic TOP BID@0900,2100 [facility] Last Admin: 03/29/18 08:58 Dose: 1 applic Cholecalciferol (Vitamin D) 1,000 intlu PO DAILY [facility] Last Admin: 03/29/18 09:00 Dose: 1,000 intlu Finasteride (Proscar) 5 mg PO DAILY [facility] Last Admin: 03/29/18 09:00 Dose: 5 mg Fludrocortisone Acetate (Florinef) 0.1 mg PO DAILY [facility] Last Admin: 03/29/18 09:00 Dose: 0.1 mg Latanoprost (Xalatan Opht) 1 drop OU HS [facility] Last Admin: 03/28/18 20:59 Dose: 1 drop Multivitamins/Minerals (Therapeutic-M Tab) 1 tab PO DAILY [facility] Last Admin: 03/29/18 09:00 Dose: 1 tab Pantoprazole Sodium (Protonix Ec Tab) 40 mg PO DAILY [facility] Last Admin: 03/29/18 08:59 Dose: 40 mg Tamsulosin HCl (Flomax) 0.8 mg PO 1300 [facility] Last Admin: 03/29/18 12:33 Dose: 0.8 mg Timolol Maleate (Timoptic 0.5% [facility]) 1 drop OU DAILY [facility] Last Admin: 03/29/18 08:59 Dose: 1 drop - Labs Labs: 03/22/18 06:00 03/22/18 06:00 PT 13.8 Seconds (9.8-13.1) H 03/27/18 18:36 INR 1.2 03/27/18 18:36
[2018-03-29] MEDS: Latanoprost 0.005% Opht SOUTION OU SCH (21:24)
[2018-03-30 08:49] VITALS: BP 103/72; PULSE 95; TEMP 97.9; O2SAT 98
[2018-03-30] MEDS: Cholecalciferol 1,000 INTLU TAB PO SCH (09:18)
[2018-03-30] MEDS: Bacitracin OINT 15GM TOP SCH ×2 (09:18→09:20)
[2018-03-30] MEDS: Multivitamin With Minerals Tab PO SCH (09:19)
[2018-03-30] MEDS: Pantoprazole 40 mg EC Tab PO SCH (09:20)
--- NOTE | 2018-03-30 12:31 | CP.PCM.DIS ---
Provider - Provider Date of Admission: 03/20/18 16:10 Attending physician: Seun Hnids MD Primary care physician: Dr. Briscoe Consults: Dr. Briscoe- pulmonology Dr. Zahra Wood- cardiology Time Spent in preparation of Discharge (in minutes): 25 Hospital Course - Lab Results Lab Results: Most Recent Lab Values WBC 6.3 K/uL (4.8-10.8) 03/22/18 06:00 RBC 3.73 Mil/uL (4.40-5.90) L 03/22/18 06:00 Hgb 12.6 g/dL (12.0-18.0) 03/22/18 06:00 Hct 36.9 % (35.0-51.0) 03/22/18 06:00 MCV 98.7 fl (80.0-94.0) H 03/22/18 06:00 MCH 33.7 pg (27.0-31.0) H 03/22/18 06:00 MCHC 34.1 g/dL (33.0-37.0) 03/22/18 06:00 RDW 15.4 % (11.5-14.5) H 03/22/18 06:00 Plt Count 171 K/uL (130-400) 03/22/18 06:00 PT 13.8 Seconds (9.8-13.1) H 03/27/18 18:36 INR 1.2 03/27/18 18:36 Sodium 137 mmol/l (132-148) 03/22/18 06:00 Potassium 4.3 MMOL/L (3.6-5.0) 03/22/18 06:00 Chloride 103 mmol/L (98-107) 03/22/18 06:00 Carbon Dioxide 29 mmol/L (22-30) 03/22/18 06:00 Anion Gap 9 (10-20) L 03/22/18 06:00 BUN 24 mg/dl (9-20) H 03/22/18 06:00 Creatinine 0.8 mg/dl (0.8-1.5) 03/22/18 06:00 Est GFR ( Amer) > 60 03/22/18 06:00 Est GFR (Non-Af Amer) > 60 03/22/18 06:00 Random Glucose 91 mg/dL (75-110) 03/22/18 06:00 Calcium 8.3 mg/dL (8.4-10.2) L 03/22/18 06:00 Lactate Dehydrogenase 347 U/L (313-618) 03/22/18 12:58 Carcinoembryonic Ag 2.1 ng/mL (0-3.0) 03/24/18 05:30 Prostate Specific Ag 2.23 ng/ML (0.00-4.0) 03/24/18 05:30 25-OH Vitamin D Total 24 ng/mL (30-100) L 03/23/18 09:42 TB Test (QFT) Nil 0.07 IU/mL 03/22/18 13:40 TB Test Mitogen - Nil 1.29 IU/mL 03/22/18 13:40 TB Test TB - Nil 0.01 IU/mL 03/22/18 13:40 TB Test (QFT) Negative (Negative) 03/22/18 13:40 - Hospital Course Hospital Course: This is an 82 yo male with history of Chronic AFib, Right Pleural Effusion and CHF brought in after falling beside the bathroom. He has multiple falls secondary to arrhythmia but refused pacemaker placement. Underwent IR thoracentesis because of large right pleural effusion. Transferred to TCU for rehab and therapy for management of deconditioning. During his stay in TCU, the patient improved with PT/OT. He was seen by Dr. Briscoe from pulmonary and Dr. Zahra Wood from cardiology. Due to c/o of continued dysphagia, the patient had an esophagogram performed showing extensive tertiary wave contractions but no focal stenosis or mass lesions noted. The patient had forehead stitches removed. Today, he is being discharged to [facility] as the patient will require extensive physical and occupational therapies as he is deconditioned. 1. Orthostatic Hypotension, improved secondary to arrhythmia, severe TR and medication no further dizzy spells on Florinef 0.1mg PO daily Flomax d/c, changed to Rapaflo 8 mg po daily For further PT/OT at [facility] 2. Chronic AFib rate controlled off Metoprolol because of bradycardia Restarted on Eliquis 2.5 mg po q 12 hours by cardiology. ASA discontinued 3. CHF with Bilateral Pleural effusion post thoracentesis, still with stable right sided pleural effusion on CXR off Lasix becasue of severe TR off Aldactone because of hyperkalemia off Metoprolol because of bradycardia 4. BPH continue Finasteride D/c Flomax, Start Rapaflo 8 mg po daily in order to decrease the risk of orthostatic change in blood pressure 5. Dysphagia - chronic - Esophagogram performed showing extensive tertiary wave contractions but no focal stenosis or mass lesions noted. Discharge Exam - Head Exam Head Exam: ATRAUMATIC Discharge Plan - Discharge Medications Prescriptions: Silodosin [Rapaflo] 8 mg PO DAILY #30 capsule - Follow Up Plan Condition: GOOD Disposition: REHAB FACILITY/REHAB UNIT Instructions: Atrial Fibrillation (DC), Syncope (Fainting) (DC), Heart Failure (DC), Heart Failure (GEN), Pacemaker (DC), Pacemaker (GEN), Pulmonary Edema (DC) , Pulmonary Edema (GEN), Ascites (DC), Ascites (GEN)
--- NOTE | 2018-03-30 12:58 | CP.PCM.PN ---
Subjective - Date & Time of Evaluation Date of Evaluation: 03/30/18 Time of Evaluation: 12:58 - Subjective Subjective: Gradually gaining strength. Appetite is slowly improving. Less orthostatic BP problems. Will try Rapaflo 8MG daily to replace Flomax (poss less orthostasis). Ready for discharge to [facility]. Prognosis guarded; patient has decided against aggressive procedures. Objective - Vital Signs/Intake and Output Vital Signs (last 24 hours): Temp Pulse Resp BP Pulse Ox 97.9 F 95 H 20 103/72 98 03/30/18 08:48 03/30/18 08:48 03/30/18 08:48 03/30/18 08:48 03/30/18 08:48 - Medications Medications: Current Medications Apixaban (Eliquis) 2.5 mg PO Q12 [facility] PRN Reason: Protocol Last Admin: 03/30/18 09:18 Dose: 2.5 mg Bacitracin (Bacitracin Oint) 1 applic TOP BID@0900,2100 [facility] Last Admin: 03/30/18 09:18 Dose: 1 applic Bacitracin (Bacitracin Oint) 1 applic TOP BID [facility] Last Admin: 03/30/18 09:20 Dose: Not Given Cholecalciferol (Vitamin D) 1,000 intlu PO DAILY [facility] Last Admin: 03/30/18 09:18 Dose: 1,000 intlu Finasteride (Proscar) 5 mg PO DAILY [facility] Last Admin: 03/30/18 09:18 Dose: 5 mg Fludrocortisone Acetate (Florinef) 0.1 mg PO DAILY [facility] Last Admin: 03/30/18 09:18 Dose: 0.1 mg Latanoprost (Xalatan Opht) 1 drop OU HS [facility] Last Admin: 03/29/18 21:24 Dose: 1 drop Multivitamins/Minerals (Therapeutic-M Tab) 1 tab PO DAILY [facility] Last Admin: 03/30/18 09:19 Dose: 1 tab Pantoprazole Sodium (Protonix Ec Tab) 40 mg PO DAILY [facility] Last Admin: 03/30/18 09:20 Dose: 40 mg Tamsulosin HCl (Flomax) 0.8 mg PO 1300 [facility] Last Admin: 03/29/18 12:33 Dose: 0.8 mg Timolol Maleate (Timoptic 0.5% [facility] Sol[facility]) 1 drop OU DAILY [facility] Last Admin: 03/30/18 09:20 Dose: 1 drop - Labs Labs: 03/22/18 06:00 03/22/18 06:00 PT 13.8 Seconds (9.8-13.1) H 03/27/18 18:36 INR 1.2 03/27/18 18:36
== END 2018-03-30 14:30 | DRG 312 ==
LOC: H.TCU 16:10
PROC: F07Z9FZ Gait Training/Functional Ambulation Treatment using Assistive, Adaptive, Supportive or Protective Equipment (ICD-10-PCS; principal; 2018-03-20)
PROC: F08Z4FZ Home Management Treatment using Assistive, Adaptive, Supportive or Protective Equipment (ICD-10-PCS; 2018-03-20)
PROC: F07M6FZ Therapeutic Exercise Treatment of Musculoskeletal System - Whole Body using Assistive, Adaptive, Supportive or Protective Equipment (ICD-10-PCS; 2018-03-21)
DX: I95.1 Orthostatic hypotension (principal); E46 Unspecified protein-calorie malnutrition; Z68.1 Body mass index [BMI] 19.9 or less, adult; R64 Cachexia; E87.5 Hyperkalemia; I48.2 Chronic atrial fibrillation; I50.810 Right heart failure, unspecified; I07.1 Rheumatic tricuspid insufficiency; N40.1 Benign prostatic hyperplasia with lower urinary tract symptoms; R33.8 Other retention of urine; R13.19 Other dysphagia; R29.6 Repeated falls; Z79.01 Long term (current) use of anticoagulants; Z79.82 Long term (current) use of aspirin; Z91.81 History of falling